=== PATIENT | male | born 1955 | race Caucasian/White ===

== ENCOUNTER 2016-08-02 09:53 | Day surgery (SDC) | payer MEDICARE, BC ==
[2016-07-28 15:42] VITALS: BMI 26.1
[~2016-08-02 09:53] MED LIST: LACTATED RINGERS 1,000 ML IV SCH; LIDOCAINE 1% 20 ML VIAL (10MG/ML) FOR IV START INTRADERMA PRN
[2016-08-02 10:52] VITALS: RESP 16; TEMP 97.5
[2016-08-02] MEDS: PHENYLEPHRINE 10% OPHTH DROPS 5 ML BTL OP ONE ×3 (10:52→11:15)
[2016-08-02] MEDS: CYCLOPENTOLATE 1% OPHTH SOLN 2 ML BTL OP ONE ×4 (10:57→11:19)
[2016-08-02] MEDS: FLURBIPROFEN 0.03% OPHTH DROPS 2.5 ML BTL OP ONE ×3 (11:01→11:22)
[2016-08-02] MEDS ORDERED: PROPOFOL 10 MG/ML 20 ML VIAL IV ONE (11:46)
[2016-08-02] MEDS ORDERED: EPINEPHrine (PF) 0.5 ML in BALANCED SALT IRRIG SOLN COMB2 500 ML IRRIGATION ONE (12:04)
[2016-08-02] MEDS ORDERED: HYALURONATE SODIUM INTRAOCULAR 1 EACH SYRINGE (10MG/ML) INTRAOCULA ONE (12:07)
[2016-08-02] MEDS ORDERED: BALANCED SALT IRRIG SOLN COMB2 15 ML IRRIG.SOLN IRRIGATION ONE (12:07)
--- NOTE | 2016-08-02 12:10 | P.OP ---
Date of Procedure: 08/02/16 Procedure(s) Performed: PREOPERATIVE DIAGNOSIS: Cataract, left eye. POSTOPERATIVE DIAGNOSIS: Cataract, left eye. OPERATION: Phacoemulsification cataract, left eye. DESCRIPTION OF PROCEDURE: The patient was taken to the preoperative holding area. Intravenous Propofol was given so as to bring about adequate sedation. The following mixture was given for local anesthesia: 5 mL of 2% lidocaine, 5 mL of 0.75% Marcaine, and 1 mL of Wydase. Approximately 4 mL was injected in the retrobulbar space of the surgical eye. Additional 1 mL was then directed to the temporal area of the surgical eye. This was performed to allow adequate neurological block of the facial muscles. The patient was revived and then taken into the operative room. The patient was prepped and draped in the usual sterile manner for the operative eye. A lid speculum was put into position. The conjunctiva was resected back from the limbus in the 12 o'clock position. Bleeding was controlled with electrocautery. A #69 blade was then used and a half-thickness scleral incision approximately 1-mm posterior to the limbus was made on bare sclera. This was shelved in the clear cornea using a crescent knife. Next a 15-degree blade was used to make a stab incision at the 3 o' clock position at the corneolimbal interface. Keratome blade was then used and the superior wound was extended into the anterior chamber. Viscoelastic was injected into the anterior chamber and to maintain its form. Next, a cystotome was used and a continuous anterior capsulotomy was made without difficulty. Hydrodissection using a blunt cannula and BSS was performed. Phaco probe was then employed and a groove extending from 12 to 6 o'clock in the lens was created. A Crow wand was used through the stab incision so as to perform a divide and conquer technique. Next an irrigation aspiration probe was utilized and any residual cortex was removed from the eye. Again, viscoelastic was injected into the anterior chamber. An Darrel posterior chamber lens implant was placed in the cartridge and injected into the anterior chamber without difficulty. The SinGendeley hook was utilized to spin the lens into position and this was again performed without any difficulty. The irrigation and aspiration probe was again employed and any residual viscoelastic was removed from the eye. Then BSS was injected into the limbal stab incision and the anterior chamber re-inflated. The conjunctiva was reapproximated using electrocautery. One drop of 0.25% Timoptic was placed over the corneal along with TobraDex ophthalmic ointment. Two sterile patches and a Bergman eye shield were taped into position. The patient was transported to the recovery room in stable condition. Pathology: none sent Condition: stable Disposition: same day
[2016-08-02 12:34] VITALS: BP 126/75; PULSE 58
[2016-08-02] MEDS ORDERED: BUPIVACAINE (PF) 0.75% 5 ML, LIDOCAINE 4% (PF) 5 ML, HYALURONIDASE, HUMAN RECOMB 150 UNIT MISCELLANE ONE ×3 (23:00)
[2016-08-02] MEDS ORDERED: GENTAMICIN/PREDNISOL AC OPHTH OINT 3.5GM OPHTHALMIC ONE (23:00)
[2016-08-02] MEDS ORDERED: TIMOLOL 0.5% OPHTH SOLN (PF) 0.2 ML DROPERETTE OP ONE (23:00)
== END 2016-08-02 12:51 | disposition home or self-care (01) ==
LOC: OR 09:53
PROVIDERS: ATTEND Ophthalmology
DX: H26.9 Unspecified cataract (principal); F32.9 Major depressive disorder, single episode, unspecified; Z79.899 Other long term (current) drug therapy; J44.9 Chronic obstructive pulmonary disease, unspecified; J45.909 Unspecified asthma, uncomplicated; K21.9 Gastro-esophageal reflux disease without esophagitis
CPT/HCPCS: 66984; V2632; J2001; J3470; J0171; J2704

== ENCOUNTER → 2016-08-05 | Outpatient (CLI) | payer MEDICARE, BC | END | disposition home or self-care (01) | LOC: LABWHC1 11:30 | PROVIDERS: ATTEND Urology | DX: C61 Malignant neoplasm of prostate (principal) | CPT/HCPCS: 36415; 84153 ==

== ENCOUNTER 2016-09-13 10:58 | Day surgery (SDC) | payer MEDICARE, BC ==
[2016-09-09 14:25] VITALS: BMI 28.4
[2016-09-13] MEDS: FLURBIPROFEN 0.03% OPHTH DROPS 2.5 ML BTL OP ONE ×3 (11:40→12:09)
[2016-09-13 11:42] VITALS: TEMP 97.6
[2016-09-13] MEDS: CYCLOPENTOLATE 1% OPHTH SOLN 2 ML BTL OP ONE ×3 (11:43→12:03)
[2016-09-13] MEDS: PHENYLEPHRINE 10% OPHTH DROPS 5 ML BTL OP ONE ×3 (11:50→12:06)
[2016-09-13] MEDS ORDERED: PROPOFOL 10 MG/ML 20 ML VIAL IV ONE (12:30)
[2016-09-13] MEDS ORDERED: LIDOCAINE 1% INJ 10MG/ML (20 ML MDV) ONE (12:30)
[2016-09-13] MEDS ORDERED: HYALURONATE SODIUM INTRAOCULAR 1 EACH SYRINGE (10MG/ML) INTRAOCULA ONE (12:44)
[2016-09-13] MEDS ORDERED: BALANCED SALT IRRIG SOLN COMB2 15 ML IRRIG.SOLN INTRAOCULA ONE (12:44)
[2016-09-13] MEDS ORDERED: EPINEPHrine (PF) 0.5 ML in BALANCED SALT IRRIG SOLN COMB2 500 ML IRRIGATION ONE (12:45)
--- NOTE | 2016-09-13 12:52 | P.OP ---
Date of Procedure: 09/13/16 Pathology: none sent Condition: stable Disposition: same day
[2016-09-13 13:12] VITALS: BP 125/86; PULSE 75; RESP 18
[2016-09-13] MEDS ORDERED: BUPIVACAINE (PF) 0.75% 5 ML, LIDOCAINE 4% (PF) 5 ML, HYALURONIDASE, HUMAN RECOMB 150 UNIT MISCELLANE ONE ×3 (23:00)
[2016-09-13] MEDS ORDERED: GENTAMICIN/PREDNISOL AC OPHTH OINT 3.5GM OPHTHALMIC ONE (23:00)
[2016-09-13] MEDS ORDERED: TIMOLOL 0.5% OPHTH SOLN (PF) 0.2 ML DROPERETTE OP ONE (23:00)
== END 2016-09-13 13:27 | disposition home or self-care (01) ==
LOC: OR 10:58
PROVIDERS: ATTEND Ophthalmology
DX: H26.9 Unspecified cataract (principal); F32.9 Major depressive disorder, single episode, unspecified; Z79.899 Other long term (current) drug therapy; F17.200 Nicotine dependence, unspecified, uncomplicated
CPT/HCPCS: 66984; V2632; J2001 ×2; J3470; J0171; J2704

== ENCOUNTER → 2016-11-22 | Outpatient (CLI) | payer MEDICARE, BC ==
--- NOTE | 2016-11-22 09:00 | NM ---
EXAMINATION TYPE: NM hepatobiliary w EF DATE OF EXAM: 11/22/2016 COMPARISON: Nuclear medicine HIDA scan October 30, 2014. MRI abdomen December 03, 2015 HISTORY: Chronic cholecystitis per order. Abdominal pain not further specified per patient with diarr hea. TECHNIQUE: After the intravenous administration of 5.26 mCi Tc 99m Mebrofenin hepatobiliary scintigra phy is performed. Immediate images post injection. FINDINGS: There is satisfactory initial accumulation of tracer by the liver. The gallbladder is visualized wit hin 10 minutes. The small bowel activity is noted within 50 minutes. At one hour 8 ounces of oral e nsure plus is given to mimic CCK and gallbladder ejection fraction is calculated at 46 %, in the norm al range. Therefore there is no scintigraphic evidence of cystic or common bile duct obstruction to suggest acute cholecystitis or gallbladder dyskinesia. IMPRESSION: Exam is within normal limits.
== END | disposition home or self-care (01) ==
LOC: RADNMMAIN 06:47
PROVIDERS: ATTEND Surgery
DX: K81.1 Chronic cholecystitis (principal)
CPT/HCPCS: 78226; A9537

== ENCOUNTER 2016-11-23 09:12 | Day surgery (SDC) | payer MEDICARE, BC ==
[2016-11-22 10:31] VITALS: BMI 27.3
[~2016-11-23 09:12] MED LIST changes: -LIDOCAINE 1% 20 ML VIAL (10MG/ML) FOR IV START INTRADERMA PRN
[2016-11-23 09:39] VITALS: TEMP 96.9
[2016-11-23] MEDS ORDERED: LIDOCAINE 1% 20 ML VIAL (10MG/ML) FOR IV START INTRADERMA ONE (09:48)
[2016-11-23] MEDS ORDERED: LIDOCAINE 1% INJ 10MG/ML (20 ML MDV) ONE (09:56)
[2016-11-23] MEDS ORDERED: PROPOFOL 10 MG/ML 20 ML VIAL IV ONE (09:56)
--- NOTE | 2016-11-23 10:01 | P.GSHP ---
History of Present Illness H&P Date: 11/23/16 Chief Complaint: Epigastric pain, gastritis This is a 61-year-old male referred from Dr. Ramesh Giang. Patient presents today for EGD. His had issues of epigastric pain and gastritis. Past Medical History Past Medical History: Cancer, COPD, Eye Disorder, GERD/Reflux, Osteoarthritis ( OA), Prostate Disorder Additional Past Medical History / Comment(s): Prostate cancer,girlfriend states "not aware of PE" History of Any Multi-Drug Resistant Organisms: None Reported Past Surgical History: Back Surgery, Hernia Repair, Orthopedic Surgery Additional Past Surgical History / Comment(s): NECK SURGERY. 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 LT ROTATOR CUFF REPAIR, COLONOSCOPY. Past Anesthesia/Blood Transfusion Reactions: No Reported Reaction Past Psychological History: Anxiety, Depression Smoking Status: Current every day smoker - Past Family History Brother(s) Family Medical History: Pulmonary Embolus Mother Family Medical History: Diabetes Mellitus, Vascular Disorder Medications and Allergies Home Medications Medication Instructions Recorded Confirmed Type Escitalopram Oxalate [Lexapro] 10 mg PO HS 12/14/15 11/23/16 History LORazepam [Lorazepam] 1 mg PO DAILY PRN 07/28/16 11/23/16 History HYDROcodone/APAP 10-325MG [[place] 1 tab PO Q6H PRN 11/23/16 11/23/16 History 10-325] Allergies Allergy/AdvReac Type Severity Reaction Status Date / Time No Known Allergies Allergy Verified 11/22/16 10:25 Surgical - Exam Vital Signs Temp Pulse Resp BP Pulse Ox 96.9 F L 74 18 108/62 95 11/23/16 09:38 11/23/16 09:38 11/23/16 09:38 11/23/16 09:38 11/23/16 09:38 - General well developed, no distress - Eyes PERRL - ENT normal pinna - Neck no masses - Respiratory normal expansion - Cardiovascular Rhythm: regular - Abdomen Abdomen: soft, non tender Assessment and Plan Plan: Epigastric pain, gastritis. We'll perform EGD.
--- NOTE | 2016-11-23 10:07 | P.OP ---
Date of Procedure: 11/23/16 Preoperative Diagnosis: Gastritis Postoperative Diagnosis: Mild duodenitis Healing antral ulcer No evidence of hiatal hernia No evidence of esophagitis Procedure(s) Performed: EGD Implants: Anesthesia: MAC Surgeon: Santosh Galaviz Pathology: other (Antrum, duodenum) Condition: stable Disposition: PACU Indications for Procedure: Operative Findings: Description of Procedure: The patient's placed on the endoscopy table lateral position. He received IV sedation. The gastroscope placed oropharynx and passed into the esophagus and stomach. Scope was then placed through the pylorus. First and second portion of the duodenum appeared inflamed. A biopsies performed. The scope was then brought back into the stomach. And in the antrum and appeared to be a small healing ulcer. This area is biopsied. There is no active bleeding. The scope was unretroflexed and remainder stomach appeared normal. The GE junction was at 40 cm. There is no evidence of a hiatal hernia. There is no evidence of esophagitis. The proximal esophagus appeared normal. Scope was withdrawn for patient.
[2016-11-23 10:11] VITALS: RESP 16
[2016-11-23 10:31] VITALS: BP 112/82; PULSE 81
== END 2016-11-23 11:30 | disposition home or self-care (01) ==
LOC: ORWHC2ENDO 09:12
PROVIDERS: ATTEND Surgery
DX: K29.50 Unspecified chronic gastritis without bleeding (principal); K29.80 Duodenitis without bleeding; K21.9 Gastro-esophageal reflux disease without esophagitis; Z85.46 Personal history of malignant neoplasm of prostate; F32.9 Major depressive disorder, single episode, unspecified; F41.9 Anxiety disorder, unspecified; F17.200 Nicotine dependence, unspecified, uncomplicated; Z79.899 Other long term (current) drug therapy
CPT/HCPCS: 88305; 88342; 43239; J2001; J2704

== ENCOUNTER 2017-03-31 09:54 | Day surgery (SDC) | payer MEDICARE, BC ==
[2017-03-24 15:47] VITALS: BMI 27.6
[~2017-03-31 09:54] MED LIST changes: +LACTATED RINGERS 1,000 ML IV ONE; -LACTATED RINGERS 1,000 ML IV SCH; +LIDOCAINE 1% 20 ML VIAL (10MG/ML) FOR IV START INTRADERMA PRN
[2017-03-31 10:48] LABS: Glucose,Whole Blood 88 mg/dL (75-99)
[2017-03-31] MEDS ORDERED: LIDOCAINE 1% INJ 10MG/ML (20 ML MDV) ONE (11:44)
[2017-03-31] MEDS ORDERED: PROPOFOL 10 MG/ML 20 ML VIAL IV ONE (11:44)
--- NOTE | 2017-03-31 11:54 | P.GSHP ---
History of Present Illness H&P Date: 03/31/17 Chief Complaint: Peptic ulcer disease This is a 62-year-old male referred from Dr. Ramesh Giang. Patient presents today for EGD. He has a history of peptic ulcer disease. Past Medical History Past Medical History: Cancer, COPD, Eye Disorder, GERD/Reflux, Osteoarthritis ( OA), Prostate Disorder Additional Past Medical History / Comment(s): Prostate cancer,girlfriend states "not aware of PE" History of Any Multi-Drug Resistant Organisms: None Reported Past Surgical History: Back Surgery, Hernia Repair, Orthopedic Surgery Additional Past Surgical History / Comment(s): NECK SURGERY. 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 LT ROTATOR CUFF REPAIR, COLONOSCOPY., EGD, RT CATARACT REMOVED Past Anesthesia/Blood Transfusion Reactions: No Reported Reaction Smoking Status: Current every day smoker - Past Family History Brother(s) Family Medical History: Pulmonary Embolus Mother Family Medical History: Diabetes Mellitus, Vascular Disorder Medications and Allergies Home Medications Medication Instructions Recorded Confirmed Type Escitalopram Oxalate [Lexapro] 10 mg PO HS 12/14/15 03/31/17 History LORazepam [Lorazepam] 1 mg PO DAILY PRN 07/28/16 03/24/17 History HYDROcodone/APAP 10-325MG [[place] 1 tab PO Q6H PRN 11/23/16 03/31/17 History 10-325] Allergies Allergy/AdvReac Type Severity Reaction Status Date / Time No Known Allergies Allergy Verified 03/24/17 15:44 Surgical - Exam Vital Signs Temp Pulse Resp BP Pulse Ox 97.8 F 61 16 133/78 61 L 03/31/17 10:37 03/31/17 10:37 03/31/17 10:37 03/31/17 10:37 03/31/17 10:37 - General well developed, no distress - Eyes PERRL - ENT normal pinna - Neck no masses - Respiratory normal expansion - Cardiovascular Rhythm: regular - Abdomen Mild epigastric discomfort Abdomen: soft Assessment and Plan Assessment: Epigastric pain, history of peptic ulcer disease. We'll perform EGD.
--- NOTE | 2017-03-31 12:01 | P.OP ---
Date of Procedure: 03/31/17 Preoperative Diagnosis: Peptic ulcer disease Postoperative Diagnosis: Antral ulcer Procedure(s) Performed: EGD Anesthesia: MAC Surgeon: Santosh Galaviz Pathology: other (Antral ulcer) Condition: stable Disposition: PACU Description of Procedure: Patient's placed on the endoscopy table in the lateral position. He received IV sedation. The gastroscope placed oropharynx passed in the esophagus and into the stomach. Scope was then placed through the pylorus. The first and second portion of the duodenum appeared normal. Scope was then brought back the antrum. Inflamed. There is evidence of a small antral ulcer. This was biopsied. The scope was unretroflexed meters some appeared normal. The patient a previous plication wrap. A 20 mm balloon was placed across the area of the GE junction. There was no evidence of any stricture. Scope was then brought back the distal esophagus and proximal esophagus appeared normal. Scope was then withdrawn from patient.
[2017-03-31 12:21] VITALS: BP 118/76; PULSE 56; RESP 16
[2017-03-31 12:54] VITALS: TEMP 97.8
== END 2017-03-31 13:10 | disposition home or self-care (01) ==
LOC: ORWHC2ENDO 09:54
PROVIDERS: ATTEND Surgery
DX: K29.50 Unspecified chronic gastritis without bleeding (principal); Z87.11 Personal history of peptic ulcer disease; K21.9 Gastro-esophageal reflux disease without esophagitis; Z85.46 Personal history of malignant neoplasm of prostate; F17.200 Nicotine dependence, unspecified, uncomplicated; J44.9 Chronic obstructive pulmonary disease, unspecified; M19.90 Unspecified osteoarthritis, unspecified site; Z79.899 Other long term (current) drug therapy
CPT/HCPCS: 88305; 88342; 43239; J2001; J2704; C1726; 43244

== ENCOUNTER → 2017-05-11 | Outpatient (CLI) | payer MEDICARE, BC | END | disposition home or self-care (01) | LOC: LABWHC1 13:14 | PROVIDERS: ATTEND Urology | DX: C61 Malignant neoplasm of prostate (principal) | CPT/HCPCS: 36415; 84153 ==

== ENCOUNTER 2017-05-23 09:30 | Emergency (ER) | payer MEDICARE, BC ==
[2017-05-23] MEDS ORDERED: ONDANSETRON ODT 4 MG TAB PO STA (10:16)
[2017-05-23] MEDS ORDERED: HYDROmorphone 1 MG/ML 1 ML SYRINGE IM STA (10:16)
--- NOTE | 2017-05-23 10:19 | ED ---
General Adult HPI - General Chief complaint: Back Pain/Injury Stated complaint: Fell/back pain Time Seen by Provider: 05/23/17 10:00 Source: patient, RN notes reviewed Mode of arrival: ambulatory Limitations: no limitations - History of Present Illness Initial comments: This is a 62-year-old male who presents emergency Department complaining of his ribs hurting after he fell yesterday. Patient states he slipped on some ice and fell back up against a step on the lateral aspect of his left ribs. Patient states it hurts take a deep breath or cough. Patient denies any shortness of breath. Patient denies any chest pain. Patient denies any lower back pain. Patient denies any extremity pain. Patient denies any neck or head injury. Patient denies any sites of bleeding. - Related Data Home Medications Medication Instructions Recorded Confirmed Escitalopram Oxalate [Lexapro] 10 mg PO HS 12/14/15 05/23/17 Previous Rx's Medication Instructions Recorded Hydrocodone/Acetaminophen [[place] 1 each PO Q4HR PRN #20 tab 05/23/17 5-325] Allergies Allergy/AdvReac Type Severity Reaction Status Date / Time No Known Allergies Allergy Verified 05/23/17 10:07 Review of Systems ROS Statement: Those systems with pertinent positive or pertinent negative responses have been documented in the HPI. ROS Other: All systems not noted in ROS Statement are negative. Past Medical History Past Medical History: Cancer, COPD, Eye Disorder, GERD/Reflux, Osteoarthritis ( OA), Prostate Disorder Additional Past Medical History / Comment(s): Prostate cancer,girlfriend states "not aware of PE" History of Any Multi-Drug Resistant Organisms: None Reported Past Surgical History: Back Surgery, Hernia Repair, Orthopedic Surgery Additional Past Surgical History / Comment(s): NECK SURGERY. 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 LT ROTATOR CUFF REPAIR, COLONOSCOPY., EGD, RT CATARACT REMOVED Past Anesthesia/Blood Transfusion Reactions: No Reported Reaction Past Psychological History: Anxiety, Depression Smoking Status: Current every day smoker Past Alcohol Use History: None Reported Past Drug Use History: None Reported - Past Family History Brother(s) Family Medical History: Pulmonary Embolus Mother Family Medical History: Diabetes Mellitus, Vascular Disorder General Exam - General Exam Comments Initial Comments: GENERAL: Patient is well-developed and well-nourished. Patient is nontoxic and well- hydrated and is in mild distress. ENT: Neck is soft and supple. No significant lymphadenopathy is noted. Oropharynx is clear. Moist mucous membranes. Neck has full range of motion without eliciting any pain. EYES: The sclera were anicteric and conjunctiva were pink and moist. Extraocular movements were intact and pupils were equal round and reactive to light. Eyelids were unremarkable. PULMONARY: Unlabored respirations. Good breath sounds bilaterally. No audible rales rhonchi or wheezing was noted. CARDIOVASCULAR: There is a regular rate and rhythm without any murmurs gallops or rubs. Lateral aspect of the left ribs are tender to palpation. ABDOMEN: Soft and nontender with normal bowel sounds. SKIN: Skin is clear with no lesions or rashes and otherwise unremarkable. NEUROLOGIC: Patient is alert and oriented x3. Cranial nerves II through XII are grossly intact. Motor and sensory are also intact. Normal speech, volume and content. Symmetrical smile. MUSCULOSKELETAL: Normal extremities with adequate strength and full range of motion. . PSYCHIATRIC: Normal psychiatric evaluation. Normal interpersonal interactions appears functionally intact in deals appropriately with others. No signs of depression. No signs of anxiety. Limitations: no limitations Course Vital Signs 05/23/17 09:40 Temperature 98.6 F Pulse Rate 62 Respiratory 16 Rate Blood Pressure 116/79 O2 Sat by Pulse 99 Oximetry Medical Decision Making - Medical Decision Making X-ray shows a A. fib with a fracture. Disposition Clinical Impression: Rib fracture Disposition: HOME SELF-CARE Condition: Good Instructions: Rib Fracture (ED) Prescriptions: Hydrocodone/Acetaminophen [[place] 5-325] 1 each PO Q4HR PRN #20 tab PRN Reason: Pain Referrals: Ramesh Kaiser MD [Primary Care Provider] - 1-2 days Time of Disposition: 11:05
--- NOTE | 2017-05-23 10:42 | XR ---
EXAMINATION TYPE: XR ribs LT w pa chest xray DATE OF EXAM: 05/23/2017 COMPARISON: NONE HISTORY: Left posterior rib pain TECHNIQUE: One view of the chest and 4 views of the left ribs FINDINGS: Subsegmental linear atelectasis at both lung bases. Previous cardiac surgery noted. Surgica l change overlying the cervical spine. Chronic rib deformities noted on the right. Pleural-based thic kening noted bilaterally. No sizable pneumothorax. No acute displaced rib fracture. IMPRESSION: No acute displaced rib fracture
[2017-05-23 11:28] VITALS: BP 122/80; PULSE 67; RESP 18; TEMP 97.1
== END 2017-05-23 11:28 | disposition home or self-care (01) ==
LOC: EC 09:30
DX: S22.39XA Fracture of one rib, unspecified side, initial encounter for closed fracture (principal); F41.9 Anxiety disorder, unspecified; F32.9 Major depressive disorder, single episode, unspecified; F17.200 Nicotine dependence, unspecified, uncomplicated; Z85.46 Personal history of malignant neoplasm of prostate; Z98.890 Other specified postprocedural states; Z79.899 Other long term (current) drug therapy; W00.0XXA Fall on same level due to ice and snow, initial encounter; Y92.69 Other specified industrial and construction area as the place of occurrence of the external cause; Y99.0 Civilian activity done for income or pay
CPT/HCPCS: 71101; 99283; 96372; J1170

== ENCOUNTER → 2017-05-23 | Outpatient (CLI) | payer MEDICARE, BC ==
--- NOTE | 2017-05-23 12:23 | CTL ---
EXAMINATION TYPE: CT Low Dose Lung DATE OF EXAM ORDERED: 05/23/2017 HISTORY: Tobacco use history. Lung cancer screening CT DLP: [address] CTDI: 2.07 mGy Automated exposure control for dose reduction was used. SCREENING VISIT: Initial COMPARISON: CTA 03/08/2013 TECHNIQUE: Low dose computed tomography scan was performed through the chest at 1 mm thick sections a nd reconstructed images in the coronal plane at [address] DIAGNOSTIC QUALITY: Limited, but interpretable FINDINGS: LUNG NODULES: None. There is a 0.6 cm nodule within the superior segment right lower lobe abutting the major fissure on t he left. Series 3 image 35. Some adjacent groundglass opacity is present. There is some streak opacities within the bilateral anterior lung bases. This could be related to Ate lectasis or scarring. LUNGS: COPD: Severity: None Fibrosis: Severity: None Lymph nodes: None Other findings: None RIGHT PLEURAL SPACE: Effusion: None Calcification: None Thickening: None Pneumothorax: None LEFT PLEURAL SPACE: Effusion: None Calcification: None Thickening: None Pneumothorax: None HEART: Heart Size: Normal Coronary calcification: Mild Pericardial effusion: None OTHER FINDINGS: Upper abdomen: Normal Bony thorax: Normal Supraclavicular region: Normal Other: Ascending thoracic aorta at the level of main pulmonary artery is 3.5 cm. The main pulmonary a rtery at the bifurcation is 3.3 cm. IMPRESSION: 1. Small nodule superior segment right lower lobe adjacent to the major fissure. This was present Feb appears stable. There is some new stranding opacities adjacent. FOLLOW UP CT CHEST RECOMMENDATION: Yes CT LUNG RAD: Lung-Rad 3 Probably Benign Follow up CT chest in 6 months with contrast is recommended.
== END | disposition home or self-care (01) ==
LOC: RADCTMAIN 09:13
PROVIDERS: ATTEND Family Medicine
DX: R91.1 Solitary pulmonary nodule (principal); Z87.891 Personal history of nicotine dependence

== ENCOUNTER → 2017-07-07 | Outpatient (CLI) | payer MEDICARE, BC ==
[2017-07-07 10:26] LABS: Basophils # (A) 0.1 k/uL (0-0.2); Basophils % (A) 1 %; Eosinophils # (A) 0.1 k/uL (0-0.7); Eosinophils % (A) 2 %; HCT 43.6 % (39.0-53.0); Lymphocytes # (A) 2.5 k/uL (1.0-4.8); Lymphocytes % (A) 33 %; MCHC 32.1 g/dL (31.0-37.0); MCV 99.9 fL (80.0-100.0); Monocytes # (A) 0.5 k/uL (0-1.0); Monocytes % (A) 7 %; Neutrophils # (A) 4.2 k/uL (1.3-7.7); Neutrophils % (A) 55 %; Platelet Count 215 k/uL (150-450); RBC 4.36 m/uL (4.30-5.90); RDW 13.7 % (11.5-15.5); WBC 7.6 k/uL (3.8-10.6)
[2017-07-07 10:30] LABS: Appearance,Urine Clear (Clear); Bilirubin,Urine Negative (Negative); Blood,Urine Negative (Negative); Color,Urine Yellow; Glucose,Urine (UA) Negative (Negative); Ketones,Urine Negative (Negative); Leukocyte Esterase,Urine Negative (Negative); PH, Urine 5.5 (5.0-8.0); Protein,Urine Negative (Negative); Specific Gravity,Urine 1.013 (1.001-1.035); Urobilinogen,Urine <2.0 mg/dL (<2.0)
--- NOTE | 2017-07-07 10:31 | XR ---
EXAMINATION TYPE: XR chest 2V DATE OF EXAM: 07/07/2017 COMPARISON: 05/23/2017 HISTORY: Presurgical testing. TECHNIQUE: Frontal and lateral views of the chest are obtained. FINDINGS: The lungs are hyperinflated with flattening of the diaphragms related to underlying COPD. E nlargement of the hilar vasculature may indicate pulmonary artery hypertension. Cardiac valvular repl acement is noted. Heart is upper limits of normal. There is no focal air space opacity, pleural effu fred, or pneumothorax seen. The cardiac silhouette size is within normal limits. Left basilar plat elike subsegmental atelectasis versus pleural parenchymal scarring is seen. The osseous structures ar e intact. Mild multilevel degenerative changes of thoracic spine are present. IMPRESSION: 1. No acute cardiopulmonary process. 2. Multifocal subsegmental left basilar atelectasis versus pleural parenchymal scarring. 3. Radiographic sequela of COPD. 4. Enlargement of the hilar vasculature which may represent underlying pulmonary arterial hypertensio n.
[2017-07-07 10:35] LABS: Prothrombin Time 9.9 sec (9.0-12.0)
[2017-07-07 10:43] LABS: Anion Gap 8 mmol/L; Blood Urea Nitrogen 24 mg/dL (9-20); Calcium 9.4 mg/dL (8.4-10.2); Carbon Dioxide 26 mmol/L (22-30); Chloride 107 mmol/L (98-107); Glucose 92 mg/dL (74-99); Potassium 5.5 mmol/L (3.5-5.1); Sodium 141 mmol/L (137-145)
== END | disposition home or self-care (01) ==
LOC: LABPAT 09:29
PROVIDERS: ATTEND Orthopaedic Surgery Orthopaedic Surgery of the Spine
DX: Z01.818 Encounter for other preprocedural examination (principal); Z01.812 Encounter for preprocedural laboratory examination; Z79.01 Long term (current) use of anticoagulants
CPT/HCPCS: 36415; 71046; 80048; 81003; 85025; 85610; 85730; 87070

== ENCOUNTER → 2017-07-12 | Outpatient (CLI) | payer MEDICARE, BC | END | disposition home or self-care (01) | LOC: LABWHC1 13:15 | PROVIDERS: ATTEND Orthopaedic Surgery Orthopaedic Surgery of the Spine | DX: Z01.812 Encounter for preprocedural laboratory examination (principal); M48.061 Spinal stenosis, lumbar region without neurogenic claudication | CPT/HCPCS: 86850; 86900; 86901 ==

== ENCOUNTER 2017-07-19 09:57 | Inpatient (IN) | payer MEDICARE, BC ==
[2017-07-12 15:08] VITALS: BMI 27.8
[~2017-07-19 09:57] MED LIST changes: +BACITRACIN 50,000 UNIT, POLYMYXIN B 500,000 UNIT in SODIUM CHLORIDE 0.9% IRRIGATIO 1,00... IRRIGATION ONE; +DEXAMETHASONE SOD PHOSPHATE 10 MG/ML 1 ML VIAL IV ONE; +HYDROmorphone 0.5 MG/0.5 ML SYRINGE IVP PRN; -LACTATED RINGERS 1,000 ML IV ONE; -LIDOCAINE 1% 20 ML VIAL (10MG/ML) FOR IV START INTRADERMA PRN; +ONDANSETRON 4 MG/2 ML VIAL IVP ONE; +ceFAZolin IN SWFI 2 GM/20 ML SYRINGE IVP ONE
[2017-07-19] MEDS: LACTATED RINGERS 1,000 ML IV SCH (11:35)
[2017-07-19] MEDS ORDERED: LIDOCAINE 1% 20 ML VIAL (10MG/ML) FOR IV START INTRADERMA ONE (11:35)
[2017-07-19] MEDS ORDERED: ePHEDrine SULFATE/0.9% NACL/PF 50 MG/5 ML SYRINGE IV ONE (13:38)
[2017-07-19] MEDS ORDERED: HYDROmorphone (PF) 1 MG/ML ONE (13:38)
[2017-07-19] MEDS ORDERED: ROCURONIUM BROMIDE 10 MG/ML 10 ML VIAL IV ONE (13:38)
[2017-07-19] MEDS ORDERED: LIDOCAINE 1% INJ 10MG/ML (20 ML MDV) ONE (13:38)
[2017-07-19] MEDS ORDERED: PROPOFOL 10 MG/ML 20 ML VIAL IV ONE (13:38)
[2017-07-19] MEDS ORDERED: fentaNYL (PF) 50 MCG/ML 2 ML AMP ONE (13:38)
[2017-07-19] MEDS ORDERED: SUCCINYLCHOLINE CHLORIDE 100 MG/5 ML SYR IV ONE (13:38)
[2017-07-19] MEDS ORDERED: ALBUTEROL INHALER 60 PUFF/8 GM INHALER INHALATION ONE (13:38)
[2017-07-19] MEDS ORDERED: KETAMINE 10 MG/ML 20 ML VIAL ONE (13:38)
[2017-07-19] MEDS ORDERED: MIDAZOLAM 2 MG/2 ML VIAL ONE (13:38)
[2017-07-19] MEDS ORDERED: LACTATED RINGERS 1,000 ML IV ONE ×2 (17:25)
[2017-07-19] MEDS ORDERED: ONDANSETRON 4 MG/2 ML VIAL IVP PRN (17:49)
[2017-07-19] MEDS ORDERED: DIAZEPAM 5 MG TAB PO PRN (17:49)
[2017-07-19] MEDS ORDERED: HYDROcodone/APAP 5-325MG 1 EACH TAB PO PRN (17:49)
[2017-07-19] MEDS ORDERED: BENZOCAINE/MENTHOL LOZENG 1 EACH LOZENGE MUCOUS MEM PRN (17:49)
[2017-07-19] MEDS ORDERED: MAGNESIUM HYDROXIDE 2,400 MG/10 ML CUP PO PRN (17:49)
[2017-07-19] MEDS ORDERED: MORPHINE SULFATE 4 MG/ML SYRINGE IVP PRN ×2 (17:49)
[2017-07-19] MEDS ORDERED: SYMBICORT 160-4.5 MCG INHALER INHALATION PRN (17:53)
[2017-07-19] MEDS ORDERED: HYDROcodone/APAP 10-325MG 1 EACH TAB PO SCH (18:00)
[2017-07-19] MEDS ORDERED: SODIUM CHLORIDE 0.9% 1,000 ML IV SCH (18:00)
--- NOTE | 2017-07-19 18:01 | P.OP ---
Date of Procedure: 07/19/17 Preoperative Diagnosis: Spinal stenosis L3 4 L4 5, degenerative disc disease L3 4 L4 5, low back pain and lower extremity radiculopathy Postoperative Diagnosis: Same Anesthesia: GETA Pathology: none sent Condition: stable Disposition: PACU Description of Procedure: DESCRIPTION OF PROCEDURE(S): BRIEF OPERATIVE NOTE Preoperative Diagnosis: Spinal stenosis L3 4 L4 5, degenerative disc disease L3 4 L4 5, herniated disc L3 4 L4 5, low back and lower extremity radiculopathy Postoperative Diagnosis: Same Procedure: Laminectomy and decompression L3 4 L4 5 Minimally invasive Posterior lateral decompression and facet fusion L3 4 L4 5 Minimally invasive Transforaminal lumbar interbody fusion for a 360 fusion L3 4 L4 5 Discectomy for decompression L3 4 L4 5 Placement of interbody graft L3 4 L4 5 Local autogenous bone grafting Harvesting of bone marrow aspirate via the pedicle and vertebral body of L3 Use of Cell Saver Use of bone graft extenders Surgeon: Dr. Nur Machine Maintenance Repairer: Viral Ansari is present throughout the entire the case persistence during positioning, dissection, exposure, visualization, and all crucial elements of the case as well as closure. Anesthesia: General anesthesia per Dr. Bass Estimated blood loss: approximately 300 mL with 150 given back through Cell Saver Complications: None apparent Components implanted: K2M Poteet minimally invasive pedicle screw system with 6 screws measuring 6.5 x 50 mm, 2 rods and cascade interbody cages with a osteo amp Sponge and 30 mL of DBX bone fibers to supplemental local autogenous bone graft and bone marrow aspirate Disposition: To recovery room in good stable condition. OPERATIVE INDICATIONS The patient has had long-standing issues in their lower back and lower extremities. has been having worsening debility and pain despite conservative care. He was found have severe stenosis L3 4 L4 5 with disc herniation and central bilateral foraminal stenosis with degenerative disc disease all of which correlated well with his low back and lower extremity symptoms. The patient has been through conservative treatment. We discussed various treatment options including surgery, and the patient wishes to proceed with surgery . We discussed the risk of smoking in terms of his recovery and his overall results with his lumbar fusion and I urged him to stop smoking quite independently and he understands. We discussed the risk, patient's alternatives and benefits of surgery including but not limited to, risk of bleeding risk of infection, risk of need for further surgery, risk of decreased, loss of motion, muscle function, malunion nonunion, hardware failure, nerve damage, paralysis, heart attack, blindness and . OPERATIVE SUMMARY After discussing all the risks, patient alternatives and benefits at length, the patient elected to proceed with surgical intervention, signed informed consent, and presented for their procedure. The patient was seen and examined in the preoperative holding area and the surgical site was marked. The patient was given antibiotics and brought to the operating room. The patient was sedated and intubated by anesthesia in standard fashion. The patient was positioned on to the operating room table in a prone position on the appropriate frame which was well-padded and well molded. We were careful to pad any bony prominences and pressure points. We were careful to maintain the patient's cervical spine and good neutral alignment and position throughout. The patient was prepped and draped in a normal standard fashion. An appropriate timeout and keystone protocol performed. We were able to proceed with the surgery. The local wound area was infiltrated with local anesthetic. I was able utilize C-arm guidance to establish appropriate position over the pedicles bilaterally at the appropriate levels At L3 4 and 5. With the appropriate levels confirmed was able to make small stab incisions over the appropriate pedicle sites bilaterally. Utilizing C-arm in his house able to establish a Jamshidi needle over the lateral aspect of the pedicle and advanced the trocar into the pedicle being careful not to breech superiorly inferiorly medially or laterally. Position was confirmed regularly with AP and lateral images on C-arm. I was able to establish the trocar into the pedicle appropriately into the posterior aspect of the vertebral body bilaterally at the appropriate levels At L3 4 and 5. This was done at each of the pedicle positions and each of the vertebrae. at L3 on the right I was able to draw up approximately 20 mL of bone marrow aspirate with the trocar into the used for supplement the bone graft. I was able place the guidewire into the trocar and into the vertebral body appropriately under C-arm guidance. Dissection was taken down over the wire to the appropriate starting position for the screw placed. The appropriate length screw was chosen, threaded over the guidewire and screwed appropriately into the pedicle and vertebral body under C-arm guidance in excellent alignment and position with good bony purchase. This is done at each of the screw sites at the appropriate levels. With the screws intact I extended the incision to connect the screw hole sites on the most symptomatic side On the right. I dissected down to establish access over the pars and lamina to the base of the spinous process. I was able to expose the facet joint. The capsule the facet was taken down and showed some facet arthrosis at the joint. I was able to use a combination of curettes and Kerrison rongeurs and a high-speed drill to take down the facet joint and do a facetectomy. this was done first at L4 5 and then at L3 4. Partial laminectomy was also performed. I was able get excellent foraminal decompression and central decompression with undermining across midline to perform a laminectomy centrally and contralaterally. As able get good central decompression. The ligamentum flavum was taken down to further decompress centrally and at bilateral neural foramen. I was able to expose the disc space and visualize the traversing nerve root. Note was made of some disc protrusion at the level causing further compression of the nerve root. I was able to establish a annulotomy at the appropriate level protecting soft tissue and neural structures. Note was made of some disc desiccation at the disc. I performed a complete discectomy with accommodation of curettes and rasps and scrapers. I was able get good endplate preparation at the disc space. I sized for the appropriate size interbody spacer protecting the soft tissue and neural structures. The wound was copiously irrigated and suctioned dry. There is no evidence of any dural tear or leak. I was able to pack the disc space with local autogenous bone graft as well as a small amount of bone graft which was also placed into the interbody cage itself. Protecting the soft tissue structures and neural structures I was able place the interbody cage in good alignment and good position with good fit and fill at the interbody space. His issues was confirmed with C-arm guidance. Good hemostasis maintained. There is no evidence of any dural tear or leak. The wound was irrigated and suctioned dry.This was done similarly first at L4 5 and then at L3 4. With the hardware intact, intraoperative C-arm imaging was again taken which showed good alignment and position of the hardware at the appropriate levels At L3 4 and L4 5. We were then able to measure, contour and place the rods and appropriate hardware bilaterally. I was able to place capcrews, tighten them down, and torque them with the torque screwdriver appropriately. With this intact I was able to place the local autogenous bone graft with additional bone graft enhancer as necessary into the posterior lateral gutters over the decorticated transverse processes. The remainder of the bone graft was placed over the facet joint on the contralateral side after taking down the facet joint capsule. With the bone graft intact, a stable construct, and good decompression at the appropriate levels, we were able to proceed with closure. Good hemostasis was maintained. There is no evidence of dural tear or leak. The fascia was closed for a watertight closure. he subcuticular tissue was closed with absorbable suture. The wound was cleaned and dried and dressed with the appropriate dressing. The drapes were broken down. The patient was gently rolled back onto their hospital bed being careful to maintain their cervical spine and good neutral alignment and position. They were woken up by anesthesia, extubated, and brought to the recovery room in good stable condition. The patient will be admitted to the hospital for appropriate postoperative care , medical management and monitoring. We will continue to follow them closely about the postoperative course.
[2017-07-19] MEDS ORDERED: HYDROmorphone 0.5 MG/0.5 ML SYRINGE IVP ONE ×3 (18:10→18:15)
--- NOTE | 2017-07-19 18:16 | FL ---
EXAMINATION TYPE: FL guidance operating room, XR lumbar spine 2 or 3V DATE OF EXAM: 07/19/2017 CLINICAL HISTORY: Spinal stenosis TECHNIQUE: Fluoroscopy. Intraoperative limited views lumbar spine. COMPARISON: None. FINDINGS: Fluoroscopic guidance was provided during low back surgical procedure performed by Dr. Chan jovel. A total of 2 minutes 31 seconds of fluoroscopic time was utilized during the procedure and 6 spo t intraoperative images are acquired. Intraoperative images acquired show placement of wires bilateral L3-L5 level with subsequent placemen t of interpedicular screws and then metallic disc spacers. IMPRESSION: As Above.
[2017-07-19] MEDS: HYDROcodone/APAP 5-325MG 1 EACH TAB PO PRN (21:00)
[2017-07-20] MEDS ORDERED: ceFAZolin IN SWFI 2 GM/20 ML SYRINGE IVP SCH (01:00)
[2017-07-20] MEDS: HYDROcodone/APAP 5-325MG 1 EACH TAB PO PRN ×2 (01:29→08:06)
[2017-07-20] MEDS: LACTATED RINGERS 1,000 ML IV SCH (05:33)
[2017-07-20 07:28] LABS: Basophils % (A) 0 %; Eosinophils % (A) 0 %; HCT 41.2 % (39.0-53.0); HGB 13.1 gm/dL (13.0-17.5); Lymphocytes # (A) 1.8 k/uL (1.0-4.8); Lymphocytes % (A) 15 %; MCHC 31.7 g/dL (31.0-37.0); MCV 97.7 fL (80.0-100.0); Mean Platelet Volume 7.7; Monocytes # (A) 0.9 k/uL (0-1.0); Monocytes % (A) 8 %; Neutrophils # (A) 8.8 k/uL (1.3-7.7); Neutrophils % (A) 76 %; Platelet Count 186 k/uL (150-450); RBC 4.21 m/uL (4.30-5.90); RDW 13.4 % (11.5-15.5); WBC 11.6 k/uL (3.8-10.6)
[2017-07-20 07:39] LABS: Anion Gap 7 mmol/L; Blood Urea Nitrogen 19 mg/dL (9-20); Calcium 8.9 mg/dL (8.4-10.2); Carbon Dioxide 27 mmol/L (22-30); Chloride 107 mmol/L (98-107); Glucose 115 mg/dL (74-99); Potassium 4.6 mmol/L (3.5-5.1); Sodium 141 mmol/L (137-145)
[2017-07-20 07:52] VITALS: BP 118/72; PULSE 85; RESP 19; TEMP 97.6
[2017-07-20] MEDS ORDERED: SENNOSIDES-DOCUSATE SODIUM 1 EACH TAB PO SCH (09:00)
[2017-07-20] MEDS ORDERED: VARENICLINE 0.5 MG TAB PO SCH (09:00)
[2017-07-20] MEDS ORDERED: buPROPion XL 300 MG TAB.ER.24H PO SCH (09:00)
[2017-07-20] MEDS ORDERED: ESCITALOPRAM 10 MG TAB PO SCH (09:00)
--- NOTE | 2017-07-20 09:06 | P.DS ---
Providers Date of admission: 07/19/17 09:57 Attending physician: Howard Nur Consults: 07/19/17 17:49 Consult Physician Routine Consulting Provider: Ramesh Kaiser Reason/Comments: Medical management Do you want consulting provider notified?: Yes Primary care physician: Ramesh Mclean [facility] Course: The patient presented on the day of admission as per his operative note. He underwent posterior lumbar decompression and fusion with a minimally invasive approach at L3 4 and L4 5 for his severe spinal stenosis with disc degeneration low back pain and lower extremity radiculopathy. He feels he is making good progress. He feels his legs are doing well. He has been up and around his room and is tolerating his pain adequately with oral medications. He is tolerating his regular diet. Physical Exam The incision site is clean dry and intact. There is no erythema no drainage. There is no purulence no evidence of infection. There was some bloody drainage on the dressing from overnight but I change the dressings morning and there is no active drainage. There is no significant swelling. There is no erythema. Abdomen soft and nontender. Chest has good excursion with deep inspiration and expiration. The patient has active and passive range of motion intact at the upper and lower extremities. There is no acute change in neurologic status. He has good sustained dorsal flexion plantar flexion and EHL his bilateral lower extremities. He is voiding freely. Hospital Course Postoperative day #1 status post minimally invasive decompression and fusion L3 4 L4 5 for his severe spinal stenosis with degenerative disc disease facet arthrosis low back and lower extremity radiculopathy. The patient has been making good progress postoperatively. They have completed the prophylactic antibiotics without any signs or symptoms of infection. The patient has been able to advance their diet, and is tolerating diet adequately. The pain was initially controlled with IV medications and is now controlled appropriately with oral medications. The patient has been able to increase their mobilization. He is able to turn around his room and into the hallways and is eager to try to go home today. The patient has progressed appropriately. I think they are in good stable condition for discharge today as long as he is safe with his mobilization and comfort with his oral medications. I again discussed with him the importance of not smoking. He should not have nicotine has this significantly decreases his ability for healing and positive results and he again states that he understands. They will be sent home with appropriate prescriptions. He is given prescriptions for pain, muscle relaxation for spasms, as well as a Chantix starting pack to keep him from smoking. I answered their questions to the best of my ability in a language that they can understand and they are agreeable with the plan. They will follow up as directed in approximately 2 weeks or sooner if he is having any problems. Patient Condition at Discharge: Good Plan - Discharge Summary Discharge Rx Participant: Yes New Discharge Prescriptions: New Diazepam [Valium] 5 mg PO TID PRN #90 tab PRN Reason: Spasms HYDROcodone/APAP 10-325MG [Delanson 10-325] 1 tab PO Q6H PRN #90 tab PRN Reason: Pain Varenicline [Chantix Starter Pack] 0.5 mg PO DIRECTED #53 tab No Action Escitalopram Oxalate [Lexapro] 10 mg PO QAM buPROPion XL [Wellbutrin Xl] 300 mg PO DAILY Hydrocodone/Acetaminophen [[place]anson 10-325] 1 tab PO QID Mometasone/Formoterol [Dulera 200 Mcg/5 Mcg Inhaler] 2 puff INHALATION DAILY PRN PRN Reason: Shortness Of Breath LORazepam [Ativan] 1 mg PO DAILY PRN PRN Reason: Anxiety Discharge Medication List Escitalopram Oxalate [Lexapro] 10 mg PO QAM 12/14/15 [History] Hydrocodone/Acetaminophen [Delanson 10-325] 1 tab PO QID 07/12/17 [History] LORazepam [Ativan] 1 mg PO DAILY PRN 07/12/17 [History] Mometasone/Formoterol [Dulera 200 Mcg/5 Mcg Inhaler] 2 puff INHALATION DAILY PRN 07/12/17 [History] buPROPion XL [Wellbutrin Xl] 300 mg PO DAILY 07/12/17 [History] Diazepam [Valium] 5 mg PO TID PRN #90 tab 07/20/17 [Rx] HYDROcodone/APAP 10-325MG [Delanson 10-325] 1 tab PO Q6H PRN #90 tab 07/20/17 [Rx] Varenicline [Chantix Starter Pack] 0.5 mg PO DIRECTED #53 tab 07/20/17 [Rx] Follow up Appointment(s)/Referral(s): Pasia,E Edward, DO [Doctor of Osteopathic Medicine] - 2 Weeks (Scheduled limited for 2 weeks' time. Please call for appointment earlier if there are any problems) Activity/Diet/Wound Care/Special Instructions: Keep site clean. May shower with waterproof Tegaderm intact. Do not soak in a tub. On Monday May remove dressing and then may shower with area uncovered, but leave Steri-Strips intact and allow them to fray off on their own. May ambulate to tolerance. Avoid heavy or rigorous activity. No repetitive bending twisting or lifting. No smoking. Discharge Disposition: HOME SELF-CARE
== END 2017-07-20 10:30 | disposition home or self-care (01) | DRG 455 ==
LOC: 2ORMAIN 09:57 → 3SUR 17:59
PROVIDERS: ADMIT Orthopaedic Surgery Orthopaedic Surgery of the Spine; ATTEND Orthopaedic Surgery Orthopaedic Surgery of the Spine
PROC: 0SG1071 Fusion of 2 or more Lumbar Vertebral Joints with Autologous Tissue Substitute, Posterior Approach, Posterior Column, Open Approach (ICD-10-PCS; 2017-07-19)
PROC: 0ST20ZZ Resection of Lumbar Vertebral Disc, Open Approach (ICD-10-PCS; 2017-07-19)
PROC: 07DS3ZZ Extraction of Vertebral Bone Marrow, Percutaneous Approach (ICD-10-PCS; 2017-07-19)
PROC: 4A11X4G Monitoring of Peripheral Nervous Electrical Activity, Intraoperative, External Approach (ICD-10-PCS; 2017-07-19)
PROC: 30233N0 Transfusion of Autologous Red Blood Cells into Peripheral Vein, Percutaneous Approach (ICD-10-PCS; 2017-07-19)
PROC: 0SG10AJ Fusion of 2 or more Lumbar Vertebral Joints with Interbody Fusion Device, Posterior Approach, Anterior Column, Open Approach (ICD-10-PCS; principal; 2017-07-19 12:00)
DX: M48.062 Spinal stenosis, lumbar region with neurogenic claudication (principal); M41.86 Other forms of scoliosis, lumbar region; J43.9 Emphysema, unspecified; M43.16 Spondylolisthesis, lumbar region; M51.16 Intervertebral disc disorders with radiculopathy, lumbar region; G47.33 Obstructive sleep apnea (adult) (pediatric); K21.9 Gastro-esophageal reflux disease without esophagitis; N40.0 Benign prostatic hyperplasia without lower urinary tract symptoms; F32.9 Major depressive disorder, single episode, unspecified; F17.210 Nicotine dependence, cigarettes, uncomplicated; Z79.51 Long term (current) use of inhaled steroids; Z79.891 Long term (current) use of opiate analgesic; Z79.899 Other long term (current) drug therapy; Z87.11 Personal history of peptic ulcer disease; Z98.1 Arthrodesis status; Z98.42 Cataract extraction status, left eye; Z98.41 Cataract extraction status, right eye; Z86.718 Personal history of other venous thrombosis and embolism
CPT/HCPCS: 72100; 80048; 84132; 85025; 86850; 86900; 86901

== ENCOUNTER → 2017-08-18 | Outpatient (CLI) | payer MEDICARE, BC | END | disposition home or self-care (01) | LOC: LABWHC1 10:51 | PROVIDERS: ATTEND Urology | DX: C61 Malignant neoplasm of prostate (principal) | CPT/HCPCS: 36415; 84153 ==

== ENCOUNTER → 2017-11-02 | Outpatient (CLI) | payer MEDICARE, BC ==
[~2017-11-02] MED LIST changes: -BACITRACIN 50,000 UNIT, POLYMYXIN B 500,000 UNIT in SODIUM CHLORIDE 0.9% IRRIGATIO 1,00... IRRIGATION ONE; -DEXAMETHASONE SOD PHOSPHATE 10 MG/ML 1 ML VIAL IV ONE; -HYDROmorphone 0.5 MG/0.5 ML SYRINGE IVP PRN; -ONDANSETRON 4 MG/2 ML VIAL IVP ONE; +REGADENOSON 0.4 MG/5 ML SYRINGE IV ONE; -ceFAZolin IN SWFI 2 GM/20 ML SYRINGE IVP ONE
--- NOTE | 2017-11-02 10:55 | NM ---
EXAMINATION TYPE: NM stress lexiscan cardiolite DATE OF EXAM: 11/02/2017 COMPARISON: 04/06/2015 HISTORY: Coronary artery disease with prior catheterization, tobacco abuse, COPD and family history o f coronary artery disease. Left arm pain. TECHNIQUE: After the intravenous administration of 9.8 mCi Tc 99m Sestamibi - Cardiolite resting SPE CT images acquired 50 minutes post injection. The patient received 0.4mg Lexiscan, 25 mCi Tc 99m Sestamibi - Stress images obtained 35 minutes post injection FINDINGS: Review of stress and rest SPECT images demonstrates no distinct perfusion abnormality. Gated analysi s shows normal wall motion with an estimated left ventricular ejection fraction of 60 %. TID is withi n normal limits calculated at 1.05. IMPRESSION: 1. No scintigraphic evidence for reversible ischemia, unchanged from the prior. 2. Estimated left ventricular ejection fraction of 60%.
--- NOTE | 2017-11-02 18:41 | P.STRESS ---
- Stress Test Note Stress Test Results/Findings: Exam Performed: NM stress lexiscan cardiolite Exam Date: 11/02/17 Reason for Exam: CHEST PAIN Height: 5 ft 8 in Weight: 82.554 kg Protocol: LEXISCAN Stage: NA Duration of Exercise: NA Resting Heart Rate: 62 Resting Blood Pressure: 134/75 Maximum Achieved Heart Rate: 79 Maximum Achieved Blood Pressure: 164/74 85% PMHR: 135 100% PMHR: 159 METS: NA Technologist Comment: Stress Test Results/Findings: This is a 62-year-old male being evaluated for symptoms of left arm pain. Patient also has history of smoking and family history of ischemic heart disease. Stress data: Recent EKG showed sinus rhythm, normal WA interval and QRS duration. Blood pressure at rest is 1 3475 with heart rate of 62. A standard dose of Lexiscan was infused. EKGs during and after the infusion did not reveal any changes to sized ischemia. Final impression: #1. Negative Lexiscan stress test #2. Report on the nuclear images to be given by the radiologist
--- NOTE | 2017-11-06 15:44 | EST ---
Stress Test Results/Findings: Exam Performed: NM stress lexiscan cardiolite Exam Date: 11/02/17 Reason for Exam: CHEST PAIN Height: 5 ft 8 in Weight: 82.554 kg Protocol: LEXISCAN Stage: NA Duration of Exercise: NA Resting Heart Rate: 62 Resting Blood Pressure: 134/75 Maximum Achieved Heart Rate: 79 Maximum Achieved Blood Pressure: 164/74 85% PMHR: 135 100% PMHR: 159 METS: NA Technologist Comment: Stress Test Results/Findings: This is a 62-year-old male being evaluated for symptoms of left arm pain. Patient also has history of smoking and family history of ischemic heart disease. Stress data: Recent EKG showed sinus rhythm, normal CT interval and QRS duration. Blood pressure at rest is 1 3475 with heart rate of 62. A standard dose of Lexiscan was infused. EKGs during and after the infusion did not reveal any changes to sized ischemia. Final impression: #1. Negative Lexiscan stress test #2. Report on the nuclear images to be given by the radiologist JEANA
== END | disposition home or self-care (01) ==
LOC: RADNMMAIN 08:08
PROVIDERS: ATTEND Family Medicine
DX: I25.10 Atherosclerotic heart disease of native coronary artery without angina pectoris (principal)
CPT/HCPCS: 93017; 78452; A9500; J2785

== ENCOUNTER → 2017-11-20 | Outpatient (CLI) | payer MEDICARE, BC | END | disposition home or self-care (01) | LOC: LABWHC1 08:22 | PROVIDERS: ATTEND Urology | DX: C61 Malignant neoplasm of prostate (principal) | CPT/HCPCS: 36415; 84153 ==

== ENCOUNTER → 2018-03-05 | Outpatient (CLI) | payer MEDICARE, BC | END | disposition home or self-care (01) | LOC: LABWHC1 09:55 | PROVIDERS: ATTEND Urology | DX: C61 Malignant neoplasm of prostate (principal) | CPT/HCPCS: 36415; 84153 ==

== ENCOUNTER 2018-04-04 09:09 | Day surgery (SDC) | payer MEDICARE, BC ==
[2018-04-02 08:52] VITALS: BMI 28.1
[~2018-04-04 09:09] MED LIST changes: +LACTATED RINGERS 1,000 ML IV SCH; -REGADENOSON 0.4 MG/5 ML SYRINGE IV ONE
[2018-04-04 09:33] VITALS: RESP 16; TEMP 97
[2018-04-04] MEDS ORDERED: PROPOFOL 10 MG/ML 20 ML VIAL IV ONE (09:57)
--- NOTE | 2018-04-04 10:04 | P.GSHP ---
History of Present Illness H&P Date: 04/04/18 Chief Complaint: Screening colonoscopy This is a 63-year-old male who presents today for screening colonoscopy patient denies any significant GI complaints. Past Medical History Past Medical History: Cancer, COPD, Eye Disorder, GERD/Reflux, Osteoarthritis ( OA), Prostate Disorder Additional Past Medical History / Comment(s): Prostate cancer,, POSSIBLE GLAUCOMA PT NOT SURE History of Any Multi-Drug Resistant Organisms: None Reported Past Surgical History: Back Surgery, Hernia Repair, Orthopedic Surgery Additional Past Surgical History / Comment(s): NECK SURGERY. 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 LT ROTATOR CUFF REPAIR, COLONOSCOPY., EGD, BILAT CATARACTS REMOVED Past Anesthesia/Blood Transfusion Reactions: No Reported Reaction Smoking Status: Current every day smoker - Past Family History Brother(s) Family Medical History: Pulmonary Embolus Mother Family Medical History: Cancer Sister(s) Family Medical History: Cancer Medications and Allergies Home Medications Medication Instructions Recorded Confirmed Type Escitalopram Oxalate [Lexapro] 10 mg PO QAM 12/14/15 04/02/18 History LORazepam [Ativan] 1 mg PO DAILY PRN 07/12/17 04/04/18 History Diazepam [Valium] 5 mg PO TID PRN #90 tab 07/20/17 04/04/18 Rx HYDROcodone/APAP 10-325MG [[place] 1 tab PO Q6H PRN #90 tab 07/20/17 04/02/18 Rx 10-325] Allergies Allergy/AdvReac Type Severity Reaction Status Date / Time No Known Allergies Allergy Verified 04/04/18 09:36 Surgical - Exam Vital Signs Temp Pulse Resp BP 97.0 F L 69 16 139/88 04/04/18 09:32 04/04/18 09:32 04/04/18 09:32 04/04/18 09:32 - General well developed, no distress - Eyes PERRL - ENT normal pinna - Neck no masses - Respiratory normal expansion - Cardiovascular Rhythm: regular - Abdomen Abdomen: soft, non tender Assessment and Plan Assessment: We'll perform screening colonoscopy.
[2018-04-04] MEDS: LACTATED RINGERS 1,000 ML IV ONE ×2 (10:13→10:21)
[2018-04-04] MEDS ORDERED: LACTATED RINGERS 1,000 ML IV ONE (10:17)
[2018-04-04] MEDS ORDERED: IV FLUID CONTINUATION 1,000 ML IV ONE (10:17)
--- NOTE | 2018-04-04 10:18 | P.OP ---
Date of Procedure: 04/04/18 Preoperative Diagnosis: Screening colonoscopy Postoperative Diagnosis: Normal colon Procedure(s) Performed: Colonoscopy Anesthesia: MAC Surgeon: Santosh Galaviz Pathology: none sent Condition: stable Disposition: PACU Description of Procedure: PROCEDURE: The patient was placed on the endoscopy table in the lateral position. Digital rectal examination was performed which revealed no abnormalities. The prostate was symmetrical without nodules. Flexible colonoscope was then placed in the patient's anus and passed throughout the entire colon. The ileocecal valve was visualized. The cecum, ascending, transverse, descending and sigmoid colon were normal. The rectum was normal as well. There were no masses, polyps or diverticula noted in the entire colon. SUMMARY OF FINDINGS: Normal colonoscopy.
[2018-04-04 10:36] VITALS: BP 134/83; PULSE 66
== END 2018-04-04 11:04 | disposition home or self-care (01) ==
LOC: ORWHC2ENDO 09:09
PROVIDERS: ATTEND Surgery
DX: Z12.11 Encounter for screening for malignant neoplasm of colon (principal); K21.9 Gastro-esophageal reflux disease without esophagitis; Z85.46 Personal history of malignant neoplasm of prostate; J44.9 Chronic obstructive pulmonary disease, unspecified; M19.90 Unspecified osteoarthritis, unspecified site; Z79.899 Other long term (current) drug therapy; F17.200 Nicotine dependence, unspecified, uncomplicated
CPT/HCPCS: J2704; G0121

== ENCOUNTER → 2018-08-14 | Outpatient (CLI) | payer MEDICARE, BC ==
--- NOTE | 2018-08-14 14:48 | CTL ---
EXAMINATION TYPE: CT Low Dose Lung DATE OF EXAM ORDERED: 08/14/2018 HISTORY: 63-year-old male History of tobacco use. Recent diagnosis of prostate CA.. Lung cancer scre ening CT DLP: 75.[address] CTDI: 2.1 mGy Automated exposure control for dose reduction was used. SCREENING VISIT: 15 month follow-up COMPARISON: 05/23/2017 TECHNIQUE: Low dose computed tomography scan was performed through the chest at 1 mm thick sections a nd reconstructed images in the coronal/sagittal plane. Coronal MIP reconstructions also performed. CT DIAGNOSTIC QUALITY: Satisfactory FINDINGS: Heart normal size without pericardial effusion. PFO closure device is present. Minimal coronary vesse l calcifications. Aorta normal caliber with conventional arch vessel branching anatomy. No thoracic lymphadenopathy by CT size criteria. There seems to be some postsurgical or posttraumatic changes along the right breast laterally, unchanged. Large caliber to the main right and the pulmonary arteries measuring 3.1 and 3.0 cm, respectively, schilling ggesting underlying pulmonary arterial hypertension. Mild emphysematous change and [id number] diffuse bronchial wall thickening. 7 mm elongated nodular thickening right midlung, axial image 177 is stable. 5 mm nodularity right middle lobe axial image 199 is unchanged. 6 mm posterior right lower lobe pulmonary nodule axial image 229 is unchanged. 4 mm posterior right midlung pulmonary nodule axial image 191 is unchanged. 7 mm left midlung pulmonary nodule axial image 174 is either new or was previously obscured and shoul d be followed. Scattered areas of patchy atelectasis or scarring redemonstrated. Post surgical changes of Harjinder fundoplication in the upper abdomen. Bones: No ununited fractures of a couple posterior lower ribs on each side seem to be new from 05/23/19 18. Given some sclerosis along the fracture margin, suspect more subacute or even chronic nonunited f racture deformities though new from 05/23/2017. Some additional old healed right posterior fracture def ormities are present more superiorly. IMPRESSION: 1. LungRADS Category 4A (suspicious, 5-15% chance of malignancy) -- a 7 mm left mid lung pulmonary no dule is either new or was previously obscured. Short interval follow-up is recommended. 2. The other scattered pulmonary nodules measuring up to 7 mm are unchanged and benign. 3. COPD with mild emphysema and pulmonary arterial hypertension. 4. Subacute versus chronic lower posterior rib fracture deformities though noted to be new from 018. RECOMMENDATIONS: 1. Three-month follow-up low-dose CT chest. 2. A smoking cessation. FOLLOW UP CT CHEST RECOMMENDATION: [address] LUNG RAD: Lung-Rad 4A Suspicious
== END | disposition home or self-care (01) ==
LOC: RADCTMAIN 12:00
PROVIDERS: ATTEND Family Medicine
DX: Z12.2 Encounter for screening for malignant neoplasm of respiratory organs (principal); R91.8 Other nonspecific abnormal finding of lung field; J43.9 Emphysema, unspecified; I27.21 Secondary pulmonary arterial hypertension; Z87.891 Personal history of nicotine dependence

== ENCOUNTER → 2018-08-22 | Outpatient (CLI) | payer MEDICARE, BC ==
--- NOTE | 2018-08-22 14:04 | CT ---
EXAMINATION TYPE: CT abdomen pelvis wo/w con DATE OF EXAM: 08/22/2018 COMPARISON: CT abdomen March 18, 2013 HISTORY: Malignant neoplasm of prostate. CT DLP: 2046 mGycm, Automated Exposure Control for Dose Reduction was Utilized. CONTRAST: CT scan of the abdomen and pelvis is performed with oral and without and with IV Contrast, patient in jected with 100 mL of Isovue M300. FINDINGS: LUNG BASES: There is persistent some right middle lobe and lingular linear scarring and/or atelectasi s. Atrial septal closure device is redemonstrated. LIVER/GB: No significant abnormality is appreciated. PANCREAS: No significant abnormality is seen. SPLEEN: No significant abnormality is seen. ADRENALS: No significant abnormality is seen. KIDNEYS: No renal calculi on noncontrast CT. Symmetric cortical medullary uptake and excretion from both kidneys on postcontrast images without hydronephrosis. Bladder wall shows moderate concentric wa ll thickening. BOWEL: Oral contrast reaches level of cecum making evaluation distal bowel suboptimal. There is no schilling spicious small or large bowel dilatation. Mild wall thickening involving transverse and left colon is felt present. Finding presumed product of poor distention but a mild colitis cannot be excluded, cor relate clinically. PROSTATE/SEMINAL VESICLES: Prostate gland is not suspiciously enlarged. TURP defect centrally felt pr esent. Scattered pelvic phleboliths are seen. No definitive suspicious adjacent adenopathy is noted. LYMPH NODES: No greater than 1cm abdominal or pelvic lymph nodes are appreciated. OSSEOUS STRUCTURES: Postsurgical change L3-L5 level with interpedicular rods and screws and metallic disc material is present. No new suspicious focal sclerotic lesions are identified. OTHER: Moderate sized fat-containing hernias. Moderate mixed plaque throughout the aorta with ectasia but no greater than 3 cm aneurysmal change. IMPRESSION: No suspicious mass or adenopathy to suggest metastatic disease.
--- NOTE | 2018-08-22 15:58 | NM ---
EXAMINATION TYPE: NM bone scan whole body DATE OF EXAM: 08/22/2018 COMPARISON: CT abdomen pelvis dated 08/22/2018 and low dose lung CT dated 08/14/2018 HISTORY: Prostate cancer. Delayed whole-body scanning was performed following the injection of 23.1 mCi Tc 99m MDP. Images acq uired 3 hours post injection. FINDINGS: Focal abnormal uptake is seen within the 12th, 11th and eighth posterior left ribs as well as within the sternal body. Within uptake within the ribs is correlated with the CT of 08/22/2018 these represen t nonunited likely subacute fracture deformities. Cervical spine and sternal body is not evaluated in could be further evaluated with radiograph's There is also mildly asymmetric uptake within the left vertebral body although postsurgical changes are seen at this level and this may be degenerative. Sym metric uptake within the acromioclavicular joints, glenohumeral joints, sacroiliac joints, ankles, an d risks, likely on a degenerative basis. Uptake is also seen within the left cervical spine at the cr aniocervical junction. IMPRESSION: 1. Multifocal left posterior rib uptake relates to subacute nonunited rib fractures. 2. Focal radiotracer uptake within the left lateral craniocervical junction is present for which gianna elation with cervical spine radiograph could be performed. 3. Focal uptake within the sternal body relates to the healing fracture deformity seen on the exam of 08/14/2018. 4. Degenerative changes of the axial and appendicular skeleton.
== END ==
LOC: RADNMMAIN 11:06
PROVIDERS: ATTEND Radiology Radiation Oncology
DX: S22.32XA Fracture of one rib, left side, initial encounter for closed fracture (principal); S22.22XD Fracture of body of sternum, subsequent encounter for fracture with routine healing; M85.80 Other specified disorders of bone density and structure, unspecified site; C61 Malignant neoplasm of prostate
CPT/HCPCS: 74178; 78306; A9503; Q9967

== ENCOUNTER → 2018-10-09 | Outpatient (CLI) | payer MEDICARE, BC ==
[2018-10-09 12:15] LABS: Basophils # (A) 0.1 k/uL (0-0.2); Basophils % (A) 1 %; Eosinophils # (A) 0.1 k/uL (0-0.7); Eosinophils % (A) 1 %; HCT 45.6 % (39.0-53.0); HGB 14.5 gm/dL (13.0-17.5); Lymphocytes # (A) 1.8 k/uL (1.0-4.8); Lymphocytes % (A) 23 %; MCH 31.8 pg (25.0-35.0); MCHC 31.7 g/dL (31.0-37.0); MCV 100.2 fL (80.0-100.0); Macrocytosis Slight; Mean Platelet Volume 7.9; Monocytes # (A) 0.4 k/uL (0-1.0); Monocytes % (A) 5 %; Neutrophils # (A) 5.5 k/uL (1.3-7.7); Neutrophils % (A) 70 %; Platelet Count 217 k/uL (150-450); RBC 4.55 m/uL (4.30-5.90); RDW 14.7 % (11.5-15.5); WBC 7.9 k/uL (3.8-10.6)
[2018-10-09 15:58] LABS: Albumin 4.6 g/dL (3.80-4.90); Bilirubin, Conjugated 0.2 mg/dL (0.20-0.40); Bilirubin,Unconjugated 0.4 mg/dL; Globulin 2.3 g/dL (1.6-3.3); Total Bilirubin 0.6 mg/dL (0.3-1.2); Total Protein 6.9 g/dL (6.2-8.2)
== END | disposition home or self-care (01) ==
LOC: LABWHC1 10:14
PROVIDERS: ATTEND Radiology Radiation Oncology
DX: C61 Malignant neoplasm of prostate (principal); F17.210 Nicotine dependence, cigarettes, uncomplicated
CPT/HCPCS: 36415; 80076; 84153; 85025

== ENCOUNTER → 2018-10-23 | Outpatient (CLI) | payer MEDICARE, BC ==
[2018-10-23 09:56] LABS: HCT 44.1 % (39.0-53.0); MCH 31.9 pg (25.0-35.0); MCHC 31.7 g/dL (31.0-37.0); MCV 100.6 fL (80.0-100.0); Mean Platelet Volume 7.3; Platelet Count 206 k/uL (150-450); RBC 4.39 m/uL (4.30-5.90); RDW 13.3 % (11.5-15.5); WBC 8.8 k/uL (3.8-10.6)
[2018-10-23 16:02] LABS: ALT 20 U/L (10-49); AST 23 U/L (14-35); African American GFR (CKD) 82.9 (60.0-200.0); Alkaline Phosphatase 82 U/L (41-126); BUN/Creat Ratio 26.36 Ratio (12.00-20.00); Bilirubin, Conjugated <0.20 mg/dL (0.20-0.40); Calcium 9.3 mg/dL (8.7-10.3); Carbon Dioxide 25.6 mmol/L (21.6-31.8); Chloride 110 mmol/L (96-109); Glucose 97 mg/dL (70-110); Phosphorus 2.7 mg/dL (2.4-5.1); Sodium 140 mmol/L (135-145); Total Bilirubin 0.3 mg/dL (0.3-1.2); Total Protein 6.4 g/dL (6.2-8.2)
== END | disposition home or self-care (01) ==
LOC: LABWHC1 08:41
PROVIDERS: ATTEND Surgery
DX: C61 Malignant neoplasm of prostate (principal)
CPT/HCPCS: 36415; 80048; 80076; 82306; 83735; 84100; 84153; 84403; 85027

== ENCOUNTER → 2019-01-28 | Outpatient (CLI) | payer MEDICARE, BC ==
--- NOTE | 2019-01-29 07:53 | ECHOF ---
Referral Reason:Q21.1 Rebollar Foramen Ovale patch/atrial septal def MEASUREMENTS -------- HEIGHT: 172.7 cm WEIGHT: 79.4 kg BP: 102/63 RVIDd: 3.8 cm (< 3.3) IVSd: 1.2 cm (0.6 - 1.1) LVIDd: 4.4 cm (3.9 - 5.3) LVPWd: 1.2 cm (0.6 - 1.1) IVSs: 1.7 cm LVIDs: 2.9 cm LVPWs: 1.5 cm LA Diam: 3.8 cm (2.7 - 3.8) LAESV Index (A-L): 23.22 ml/m Ao Diam: 3.5 cm (2.0 - 3.7) AV Cusp: 2.1 cm (1.5 - 2.6) MV EXCURSION: 13.341 mm (> 18.000) MV EF SLOPE: 65 mm/s (70 - 150) EPSS: 0.2 cm MV E Patrice: 0.53 m/s MV DecT: 271 ms MV A Patrice: 0.66 m/s MV E/A Ratio: 0.81 RAP: 5.00 mmHg RVSP: 25.98 mmHg FINDINGS -------- Sinus rhythm. This was a technically adequate study. The left ventricular size is normal. There is borderline concentric left ventricular hypertrophy. Overall left ventricular systolic function is normal with, an EF between 55 - 60 %. The right ventricle is mild to moderately enlarged. Normal LA size by volume 22+/-6 ml/m2. The right atrial size is normal. Interatrial and interventricular septum intact. There is an interatrial closure device in place wit hout evidence of shunt. The aortic valve is trileaflet, and appears structurally normal. No aortic stenosis or regurgitation. The mitral valve is normal. There is trace to mild mitral regurgitation. Mild tricuspid regurgitation present. Right ventricular systolic pressure is normal at < 35 mmHg. Moderate pulmonic regurgitation. The aortic root size is normal. Normal inferior vena cava with normal inspiratory collapse consistent with estimated right atrial pre ssure of 5 mmHg. There is no pericardial effusion. CONCLUSIONS -------- 1. Sinus rhythm. 2. This was a technically adequate study. 3. The left ventricular size is normal. 4. There is borderline concentric left ventricular hypertrophy. 5. Overall left ventricular systolic function is normal with, an EF between 55 - 60 %. 6. The right ventricle is mild to moderately enlarged. 7. Normal LA size by volume 22+/-6 ml/m2. 8. There is an interatrial closure device in place without evidence of shunt. 9. The aortic valve is trileaflet, and appears structurally normal. No aortic stenosis or regurgitati on. 10. There is trace to mild mitral regurgitation. 11. Mild tricuspid regurgitation present. 12. Right ventricular systolic pressure is normal at < 35 mmHg. 13. Moderate pulmonic regurgitation. 14. The aortic root size is normal. 15. Normal inferior vena cava with normal inspiratory collapse consistent with estimated right atrial pressure of 5 mmHg. 16. There is no pericardial effusion. FORMULATION TECHNICIAN: Emily Garza RDCS
== END | disposition home or self-care (01) ==
LOC: RADECHMAIN 15:22
PROVIDERS: ATTEND Family Medicine
DX: I37.1 Nonrheumatic pulmonary valve insufficiency (principal); Z95.818 Presence of other cardiac implants and grafts
CPT/HCPCS: 93306

== ENCOUNTER 2019-02-12 20:38 | Emergency (ER) | payer MEDICARE, BC ==
[2019-02-12 21:16] VITALS: TEMP 98
--- NOTE | 2019-02-12 22:08 | ED ---
Recheck HPI - General Chief Complaint: Recheck/Abnormal Lab/Rx Stated Complaint: High potassium, sent by Source: patient Mode of arrival: ambulatory Limitations: no limitations - History of Present Illness Initial Comments: Curry is a pleasant 63-year-old gentleman with past medical history of prostate cancer who presents to the ER today after routine outpatient labs revealed hyperkalemia. Patient was contacted by us primary care office and advised to come to the ER for recheck. Patient denies any acute complaints reports he's been eating and drinking well not taking any potassium supplements having normal urination. - Related Data Home Medications Medication Instructions Recorded Confirmed Amitriptyline HCl [Elavil] 10 mg PO HS 02/12/19 02/12/19 Escitalopram [Lexapro] 20 mg PO DAILY 02/12/19 02/12/19 Tamsulosin [Flomax] 0.4 mg PO DAILY 02/12/19 02/12/19 Previous Rx's Medication Instructions Recorded HYDROcodone/APAP 10-325MG [[place] 1 tab PO Q6H PRN #90 tab 07/20/17 10-325] Allergies Allergy/AdvReac Type Severity Reaction Status Date / Time No Known Allergies Allergy Verified 02/12/19 22:26 Review of Systems ROS Statement: Those systems with pertinent positive or pertinent negative responses have been documented in the HPI. ROS Other: All systems not noted in ROS Statement are negative. Past Medical History Past Medical History: Cancer, COPD, Eye Disorder, GERD/Reflux, Osteoarthritis (OA), Prostate Disorder Additional Past Medical History / Comment(s): Prostate cancer,, POSSIBLE GLAUCOMA PT NOT SURE History of Any Multi-Drug Resistant Organisms: None Reported Past Surgical History: Back Surgery, Hernia Repair, Orthopedic Surgery Additional Past Surgical History / Comment(s): NECK SURGERY. 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 LT ROTATOR CUFF REPAIR, COLONOSCOPY., EGD, BILAT CATARACTS REMOVED Past Anesthesia/Blood Transfusion Reactions: No Reported Reaction Past Psychological History: Anxiety, Depression Smoking Status: Current every day smoker Past Alcohol Use History: Occasional Past Drug Use History: None Reported - Past Family History Brother(s) Family Medical History: Pulmonary Embolus Mother Family Medical History: Cancer Sister(s) Family Medical History: Cancer General Exam - General Exam Comments Initial Comments: Physical Exam GENERAL: Patient is well-developed and well-nourished. Patient is nontoxic and well-hydrated and is in no distress. HENT: Normocephalic, Atraumatic. EYES: PERRL, EOMI PULMONARY: Unlabored respirations. No audible rales rhonchi or wheezing was noted. CARDIOVASCULAR: There is a regular rate and rhythm without any murmurs gallops or rubs. ABDOMEN: Soft and nontender with normal bowel sounds. SKIN: Skin is clear with no lesions or rashes and otherwise unremarkable. : Deferred NEUROLOGIC: Patient is alert and oriented x3. Moving all extremities spontaneously MUSCULOSKELETAL: Normal extremities with adequate strength and full range of motion. No lower extremity swelling or edema. No calf tenderness. PSYCHIATRIC: Normal psychiatric evaluation. Limitations: no limitations Course Vital Signs 02/12/19 21:14 Temperature 98.0 F Pulse Rate 88 Respiratory 18 Rate Blood Pressure 100/73 O2 Sat by Pulse 100 Oximetry Medical Decision Making - Medical Decision Making Patient was seen and evaluated, history obtained from patient Labs and EKG ordered EKG obtained at 21:41 rate 74, rhythm sinus with incomplete RBBB, prolonged QT, no acute ST elevations or depressions, no hyperacute T waves, WI 146, QRS 104, QTc 470 Labs resulted with a potassium of only 4.6, mildly elevated BUN and creatinine. No other significant abnormalities. At this time patient stable for discharge home - Lab Data Result diagrams: 02/12/19 21:47 02/12/19 21:47 Lab Results 02/12/19 02/12/19 Range/Units 21:47 21:47 WBC 9.1 (3.8-10.6) k/uL RBC 3.98 L (4.30-5.90) m/uL Hgb 13.2 (13.0-17.5) gm/dL Hct 40.5 (39.0-53.0) % MCV 101.6 H (80.0-100.0) fL MCH 33.1 (25.0-35.0) pg MCHC 32.6 (31.0-37.0) g/dL RDW 14.0 (11.5-15.5) % Plt Count 215 (150-450) k/uL Neutrophils % 66 % Lymphocytes % 23 % Monocytes % 6 % Eosinophils % 2 % Basophils % 1 % Neutrophils # 6.0 (1.3-7.7) k/uL Lymphocytes # 2.1 (1.0-4.8) k/uL Monocytes # 0.6 (0-1.0) k/uL Eosinophils # 0.2 (0-0.7) k/uL Basophils # 0.1 (0-0.2) k/uL Macrocytosis Slight Sodium 140 (137-145) mmol/L Potassium 4.6 (3.5-5.1) mmol/L Chloride 107 (98-107) mmol/L Carbon Dioxide 29 (22-30) mmol/L Anion Gap 4 mmol/L BUN 28 H (9-20) mg/dL Creatinine 1.27 H (0.66-1.25) mg/dL Est GFR (CKD-EPI)AfAm 70 (>60 ml/min/1.73 sqM) Est GFR (CKD-EPI)NonAf 60 (>60 ml/min/1.73 sqM) Glucose 96 (74-99) mg/dL Calcium 9.3 (8.4-10.2) mg/dL Magnesium 2.5 H (1.6-2.3) mg/dL Total Bilirubin 0.2 (0.2-1.3) mg/dL AST 27 (17-59) U/L ALT 25 (21-72) U/L Alkaline Phosphatase 80 (38-126) U/L Total Protein 6.5 (6.3-8.2) g/dL Albumin 3.8 (3.5-5.0) g/dL Disposition Clinical Impression: Abnormal laboratory test result Disposition: HOME SELF-CARE Condition: Stable Is patient prescribed a controlled substance at d/c from ED?: No Referrals: Ramesh Kaiser MD [Primary Care Provider] - 1-2 days
[2019-02-12 22:16] LABS: Basophils # (A) 0.1 k/uL (0-0.2); Basophils % (A) 1 %; Eosinophils # (A) 0.2 k/uL (0-0.7); Eosinophils % (A) 2 %; HCT 40.5 % (39.0-53.0); HGB 13.2 gm/dL (13.0-17.5); Lymphocytes # (A) 2.1 k/uL (1.0-4.8); Lymphocytes % (A) 23 %; MCH 33.1 pg (25.0-35.0); MCHC 32.6 g/dL (31.0-37.0); MCV 101.6 fL (80.0-100.0); Macrocytosis Slight; Mean Platelet Volume 6.7; Monocytes # (A) 0.6 k/uL (0-1.0); Monocytes % (A) 6 %; Neutrophils % (A) 66 %; Platelet Count 215 k/uL (150-450); RBC 3.98 m/uL (4.30-5.90); WBC 9.1 k/uL (3.8-10.6)
[2019-02-12 22:25] LABS: Albumin 3.8 g/dL (3.5-5.0); Calcium 9.3 mg/dL (8.4-10.2); Magnesium 2.5 mg/dL (1.6-2.3); Potassium 4.6 mmol/L (3.5-5.1); Total Bilirubin 0.2 mg/dL (0.2-1.3); Total Protein 6.5 g/dL (6.3-8.2)
[2019-02-13 00:25] VITALS: BP 108/72; PULSE 91; RESP 20
== END 2019-02-12 22:59 | disposition home or self-care (01) ==
LOC: EC 20:38
DX: R79.89 Other specified abnormal findings of blood chemistry (principal); I45.10 Unspecified right bundle-branch block; I45.81 Long QT syndrome; F32.9 Major depressive disorder, single episode, unspecified; F41.9 Anxiety disorder, unspecified; F17.200 Nicotine dependence, unspecified, uncomplicated; Z79.899 Other long term (current) drug therapy; Z85.46 Personal history of malignant neoplasm of prostate; Z87.74 Personal history of (corrected) congenital malformations of heart and circulatory system
CPT/HCPCS: 36415; 80053; 83735; 85025; 93005; 99285

== ENCOUNTER → 2019-02-12 | Outpatient (CLI) | payer MEDICARE, BC ==
[2019-02-12 11:27] LABS: HCT 42.4 % (39.0-53.0); HGB 14.2 gm/dL (13.0-17.5); MCH 32.9 pg (25.0-35.0); MCHC 33.6 g/dL (31.0-37.0); MCV 97.7 fL (80.0-100.0); Mean Platelet Volume 6.3; Platelet Count 247 k/uL (150-450); RBC 4.33 m/uL (4.30-5.90); RDW 13.8 % (11.5-15.5); WBC 9.4 k/uL (3.8-10.6)
[2019-02-12 18:51] LABS: ALT 29 U/L (10-49); AST 24 U/L (14-35); African American GFR (CKD) 74.7 (60.0-200.0); Albumin/Globulin Ratio 1.95 (1.60-3.17); Alkaline Phosphatase 92 U/L (41-126); BUN/Creat Ratio 21.67 Ratio (12.00-20.00); Bilirubin, Conjugated <0.20 mg/dL (0.20-0.40); Calcium 9.3 mg/dL (8.7-10.3); Carbon Dioxide 25.4 mmol/L (21.6-31.8); Chloride 106 mmol/L (96-109); Globulin 2.1 g/dL (1.6-3.3); Glucose 91 mg/dL (70-110); Magnesium 2.2 mg/dL (1.5-2.4); Phosphorus 3.5 mg/dL (2.4-5.1); Sodium 139 mmol/L (135-145); Total Bilirubin 0.4 mg/dL (0.3-1.2); Total Protein 6.2 g/dL (6.2-8.2)
[2019-02-13 12:27] LABS: Potassium 6.1 mmol/L (3.5-5.5)
== END | disposition home or self-care (01) ==
LOC: LABWHC1 10:03
PROVIDERS: ATTEND Surgery
DX: C61 Malignant neoplasm of prostate (principal)
CPT/HCPCS: 36415; 80048; 80076; 82306; 83735; 84100; 84153; 84403; 85027

== ENCOUNTER → 2019-02-19 | Outpatient (CLI) | payer MEDICARE, BC | END | disposition home or self-care (01) | LOC: RADBDWWP 15:07 | PROVIDERS: ATTEND Surgery | DX: Z53.9 Procedure and treatment not carried out, unspecified reason (principal) ==

== ENCOUNTER → 2019-03-01 | Outpatient (CLI) | payer MEDICARE, BC ==
[2019-03-01 15:16] LABS: Appearance,Urine Clear (Clear); Bilirubin,Urine Negative (Negative); Blood,Urine Negative (Negative); Color,Urine Yellow; Glucose,Urine (UA) Negative (Negative); Hyaline Casts,Urine 5 /lpf (0-2); Ketones,Urine Negative (Negative); Leukocyte Esterase,Urine Small (Negative); Mucus,Urine Rare /hpf; Nitrite,Urine Negative (Negative); Protein,Urine 1+ (Negative); RBC,Urine 1 /hpf (0-5); Specific Gravity,Urine 1.015 (1.001-1.035); Squamous Epithelial Cell,Urine 9 /hpf (0-4); Urobilinogen,Urine <2.0 mg/dL (<2.0)
== END ==
LOC: LABWHC1 14:06
PROVIDERS: ATTEND Radiology Radiation Oncology
DX: C61 Malignant neoplasm of prostate (principal); F17.210 Nicotine dependence, cigarettes, uncomplicated; R30.0 Dysuria; Z92.3 Personal history of irradiation; Z79.818 Long term (current) use of other agents affecting estrogen receptors and estrogen levels
CPT/HCPCS: 81001; 87086

== ENCOUNTER → 2019-06-07 | Outpatient (CLI) | payer MEDICARE, BC | END | disposition home or self-care (01) | LOC: LABWHC1 10:36 | PROVIDERS: ATTEND Surgery | DX: C61 Malignant neoplasm of prostate (principal) | CPT/HCPCS: 36415; 84153 ==

== ENCOUNTER → 2019-07-31 | Outpatient (CLI) | payer MEDICARE, BC | END | disposition home or self-care (01) | LOC: LABWHC1 13:39 | PROVIDERS: ATTEND Family Medicine | DX: B34.2 Coronavirus infection, unspecified (principal) | CPT/HCPCS: 87502; U0002 ==

== ENCOUNTER → 2019-09-26 | Outpatient (CLI) | payer MEDICARE, BC ==
[~2019-09-26] MED LIST changes: -LACTATED RINGERS 1,000 ML IV SCH; +REGADENOSON 0.4 MG/5 ML SYRINGE IV ONE
--- NOTE | 2019-09-26 12:00 | ECHOF ---
Referral Reason:R94.31 Abnormal EKG MEASUREMENTS -------- HEIGHT: 172.7 cm WEIGHT: 81.6 kg BP: RVIDd: 4.1 cm (< 3.3) IVSd: 1.4 cm (0.6 - 1.1) LVIDd: 4.7 cm (3.9 - 5.3) LVPWd: 1.2 cm (0.6 - 1.1) IVSs: 1.7 cm LVIDs: 2.9 cm LVPWs: 1.8 cm LA Diam: 3.9 cm (2.7 - 3.8) LAESV Index (A-L): 23.57 ml/m Ao Diam: 3.6 cm (2.0 - 3.7) AV Cusp: 2.6 cm (1.5 - 2.6) MV EXCURSION: 19.783 mm (> 18.000) MV EF SLOPE: 98 mm/s (70 - 150) EPSS: 0.3 cm MV E Patrice: 0.70 m/s MV DecT: 173 ms MV A Patrice: 0.62 m/s MV E/A Ratio: 1.12 RAP: 5.00 mmHg RVSP: 31.53 mmHg FINDINGS -------- Sinus rhythm. This was a technically adequate study. The left ventricular size is normal. There is moderate concentric left ventricular hypertrophy. O verall left ventricular systolic function is low-normal with, an EF between 50 - 55 %. The right ventricle is moderately enlarged. Normal LA size by volume 22+/-6 ml/m2. The right atrium is normal in size. Interatrial and interventricular septum intact. There is an interatrial closure device in place wit hout evidence of shunt. The aortic valve is trileaflet and appears structurally normal. The mitral valve leaflets are mildly thickened. Mild mitral regurgitation is present. Mild tricuspid regurgitation present. Right ventricular systolic pressure is normal at < 35 mmHg. Trace/mild (physiologic) pulmonic regurgitation. The aortic root size is normal. Normal inferior vena cava with normal inspiratory collapse consistent with estimated right atrial pre ssure of 5 mmHg. There is no pericardial effusion. CONCLUSIONS -------- 1. Sinus rhythm. 2. This was a technically adequate study. 3. The left ventricular size is normal. 4. There is moderate concentric left ventricular hypertrophy. 5. Overall left ventricular systolic function is low-normal with, an EF between 50 - 55 %. 6. The right ventricle is moderately enlarged. 7. Normal LA size by volume 22+/-6 ml/m2. 8. The right atrium is normal in size. 9. Interatrial and interventricular septum intact. 10. There is an interatrial closure device in place without evidence of shunt. 11. The aortic valve is trileaflet and appears structurally normal. 12. The mitral valve leaflets are mildly thickened. 13. Mild mitral regurgitation is present. 14. Mild tricuspid regurgitation present. 15. Right ventricular systolic pressure is normal at < 35 mmHg. 16. Trace/mild (physiologic) pulmonic regurgitation. 17. The aortic root size is normal. 18. Normal inferior vena cava with normal inspiratory collapse consistent with estimated right atrial pressure of 5 mmHg. 19. There is no pericardial effusion. PAD EXTRACTOR TENDER: Emily Garza RDCS
--- NOTE | 2019-09-26 13:07 | EST ---
EXERCISE STRESS DATE OF SERVICE: 09/26/2019 AGE: 64 SEX: Male HT: 5'8" WT: 180 lbs PROTOCOL: Lexiscan Cardiolite STAGE: DURATION OF EXERCISE: HEART RATE REST: 70 BLOOD PRESSURE REST: 111/73 MAXIMUM HEART RATE ACHIEVED: 87 MAXIMUM BLOOD PRESSURE: 108/71 85% MPHR: 133 100% MPHR: 157 METS: INDICATIONS: Abnormal EKG RESULTS: Baseline EKG revealed normal sinus rhythm without significant ST-T changes. There was minor right ventricular conduction delay. With Lexiscan administration, heart rate changed from 70-87 beats per minute. Blood pressure changed from 111/73 to 106/57, and came back to baseline. By EKG criteria this is an unremarkable Lexiscan stress test. FINAL IMPRESSION: By EKG criteria, this is an unremarkable Lexiscan stress test. The nuclear scan results which are more pertinent will be reported by the radiologist. MMODL / IJN: [id number] /
--- NOTE | 2019-09-26 13:12 | NM ---
EXAMINATION TYPE: NM stress lexiscan cardiolite DATE OF EXAM: 09/26/2019 COMPARISON: Prior exam 11/02/2017 HISTORY: Abnormal EKG TECHNIQUE: After the intravenous administration of 9.7 mCi Tc 99m Sestamibi - Cardiolite resting SPE CT images acquired 60 minutes post injection. The patient received 0.4mg Lexiscan, 25.8 mCi Tc 99m Sestamibi - Stress images obtained [address] injection FINDINGS: Review of stress and rest SPECT images demonstrates no distinct perfusion abnormality. Gated analysi s shows normal wall motion with an estimated left ventricular ejection fraction of 61 %. Exam is essentially stable IMPRESSION: No scintigraphic evidence for reversible ischemia.
== END | disposition home or self-care (01) ==
LOC: RADNMMAIN 07:31
PROVIDERS: ATTEND Family Medicine
DX: I08.1 Rheumatic disorders of both mitral and tricuspid valves (principal); Z95.818 Presence of other cardiac implants and grafts
CPT/HCPCS: 93017; 93306; 78452; A9500; J2785

== ENCOUNTER → 2019-11-26 | Outpatient (CLI) | payer MEDICARE, BC ==
--- NOTE | 2019-11-26 18:55 | BD ---
EXAMINATION TYPE: Axial Bone Density DATE OF EXAM: 11/26/2019 COMPARISON: NONE CLINICAL HISTORY: Malignant neoplasm prostate Height: 68 Weight: 181.1 FRAX RISK QUESTIONS: Alcohol (3 or more units per day): no Family History (Parent hip fracture): no Glucocorticoids (More than 3mos): no (Ex: prednisone, prednisolone, methylprednisolone, dexamethasone, and hydrocortisone). History of Fracture in Adulthood: yes Secondary Osteoporosis: no 1. Type 1 Diabetes: no 2. Hyperthyroidism: no 3. Menopause before 45: n/a 4. Malnutrition: no 5. Chronic liver disease: no Rheumatoid Arthritis: yes Current Tobacco Use: yes RISK FACTORS HISTORY OF: History of Wrist Fracture: left Surgery to Spine/Hip(right/left)/Wrist (right/left): surgery to spine When: 2 years ago Family History of Osteoporosis: no Active: yes Diet low in dairy products/other sources of calcium: yes MEDICATIONS: Lexapro, narco Additional History: EXAM MEASUREMENTS: Bone mineral densitometry was performed using the [employer] System. Bone mineral density about the R hip (g/cm2): 0.835 Bone mineral density about the L hip (g/cm2): 0.930 T Score values are as follows: -----R Neck: -1.5 -----L Neck: -0.8 -----R Total: -0.5 -----L Total: -0.2 Bone mineral density : baseline Bone mineral density about the R Wrist (g/cm2): 0.616 T Score values are as follows: -----Dist. R+U: -1.5 -----Prox. R+U: -1.6 -----Radius total: -2.0 Bone mineral density : baseline IMPRESSION: Osteopenia (T Score between -2.5 and -1). There is slightly increased risk of fracture and the patient may be considered for treatment. Re-Screen 2-5 years. NOTE: T-SCORE=SD OF THE YOUNG ADULT MEAN.
== END | disposition home or self-care (01) ==
LOC: RADBDWWP 08:25
PROVIDERS: ATTEND Radiology Radiation Oncology
DX: C61 Malignant neoplasm of prostate (principal); F17.210 Nicotine dependence, cigarettes, uncomplicated; Z92.3 Personal history of irradiation; Z79.818 Long term (current) use of other agents affecting estrogen receptors and estrogen levels; M85.80 Other specified disorders of bone density and structure, unspecified site
CPT/HCPCS: 36415; 77080; 84153

== ENCOUNTER → 2020-03-27 | Outpatient (CLI) | payer MEDICARE, BC ==
--- NOTE | 2020-03-27 10:51 | MM ---
Reason for exam: clinical finding. History: Patient has history of other cancer at age 64. Benign excisional biopsy of the right breast, 1989. Physical Findings: Nurse Summary: 1cm nodule in the right breast at 3 o'clock (nurse landry). MG Diagnostic Mammo w CAD JACQUELYN Bilateral CC and MLO view(s) were taken. There are scattered fibroglandular densities. Old post surgical deformity right breast. Fat necrosis calcification central posterior left breast. Mild to moderate gynecomastia on the left. Palpable marker right 3 o'clock with underlying vague density. These results were verbally communicated with the patient and result sheet given to the patient on 03/27/20. ASSESSMENT: Incomplete: need additional imaging evaluation, BI-RAD 0 RECOMMENDATION: Ultrasound of the right breast. (targeted to palpable)
--- NOTE | 2020-03-27 10:54 | USB ---
Reason for exam: additional evaluation requested from abnormal screening. History: Patient has history of other cancer at age 64. Benign excisional biopsy of the right breast, 1989. US Breast Limited BILAT Right limited breast ultrasound including focal area of concern, retroareolar and axilla demonstrates a 2.1 x 1.6 x 0.7cm solid, hyperechoic, vascular lesion at 2 o'clock for which a biopsy is recommended. Left limited breast ultrasound including focal area of concern, retroareolar and axilla demonstrates a 1.3 x 1.1 x 0.7cm gynecomastia at the posterior nipple as seen on mammogram, calcification also seen. These results were verbally communicated with the patient and result sheet given to the patient on 03/27/20. ASSESSMENT: Suspicious, BI-RAD 4 RECOMMENDATION: Ultrasound core biopsy of the right breast. Called Dr. Vigil's office with mammographic findings. Biopsy scheduled for 03/31/20 at 1:00. PRELIMINARY REPORT CALLED AND FAXED TO DR. VIGIL ON 03/27/20.
== END | disposition home or self-care (01) ==
LOC: RADMAMWWP 07:04
PROVIDERS: ATTEND Family Medicine
DX: N63.10 Unspecified lump in the right breast, unspecified quadrant (principal); N63.20 Unspecified lump in the left breast, unspecified quadrant; R92.8 Other abnormal and inconclusive findings on diagnostic imaging of breast
CPT/HCPCS: 77066

== ENCOUNTER → 2020-03-31 | Day surgery (SDC) | payer MEDICARE, BC ==
[2020-03-31 13:41] VITALS: BP 136/86; PULSE 61; RESP 16; TEMP 97.5
--- NOTE | 2020-03-31 16:49 | USB ---
EXAMINATION TYPE: US biopsy breast VAD RT DATE OF EXAM: 03/31/2020 CLINICAL HISTORY: N63 Lump. TECHNIQUE: Ultrasound guided vaccuum assisted core biopsy of right breast. COMPARISON: NONE FINDINGS: The ultrasound guided core biopsy procedure was explained to the patient. The risks, benef its, alternatives were discussed. Specific discussion regarding the risk for hemorrhage given vessels within this structure was discussed. An informed consent was then obtained. Timeout was performed. The patient was placed in supine positioning for imaging and for the procedure. The overlying skin w as prepped with betadine and sterilely draped in usual sterile fashion. Lidocaine 1% was used as ane sthetic into the skin and deeper breast tissue up to area of concern in the breast. A small skin nadine k was made with surgical scalpel. Under ultrasound guidance, a 12-gauge vacuum assisted biopsy device was used to obtain 3 core samples . The proximal portion of the lesion was biopsied, the vessels within the distal portion of the lesio n were avoided as best as possible. The lesion was well visualized following the procedure and a clip was not placed. Good hemostasis was obtained with direct pressure. No significant hemorrhage occurred during the exam . Discharge instructions were discussed with the patient. The patient will follow up with the referr ing physician for results. Postprocedure mammogram: Post procedure mammogram was not performed at this time, no clip placement w as performed. The patient tolerated the procedure well without any immediate complication. The patient was dischar ged to home in stable condition. IMPRESSION: 1. Successful ultrasound guided biopsy right breast. Recommendations: 1. Recommendations are pending pathology results.
== END ==
LOC: RADUSWWP 12:36
PROVIDERS: ATTEND Family Medicine
DX: N63.10 Unspecified lump in the right breast, unspecified quadrant (principal)
CPT/HCPCS: 88305; 19083; A4648; J2001

== ENCOUNTER → 2020-08-10 | Outpatient (CLI) | payer MEDICARE, BC ==
[2020-08-10 12:54] LABS: Basophils # (A) 0.1 k/uL (0-0.2); Basophils % (A) 1 %; Eosinophils # (A) 0.1 k/uL (0-0.7); Eosinophils % (A) 1 %; HCT 41.5 % (39.0-53.0); HGB 14.2 gm/dL (13.0-17.5); Lymphocytes # (A) 1.4 k/uL (1.0-4.8); Lymphocytes % (A) 17 %; MCH 33.9 pg (25.0-35.0); MCHC 34.1 g/dL (31.0-37.0); MCV 99.4 fL (80.0-100.0); Mean Platelet Volume 7.5; Monocytes # (A) 0.6 k/uL (0-1.0); Monocytes % (A) 7 %; Neutrophils # (A) 6.2 k/uL (1.3-7.7); Neutrophils % (A) 74 %; Platelet Count 253 k/uL (150-450); RBC 4.17 m/uL (4.30-5.90); RDW 13.6 % (11.5-15.5); WBC 8.4 k/uL (3.8-10.6)
[2020-08-10 13:05] LABS: ALT 17 U/L (4-49); AST 20 U/L (17-59); African American GFR (CKD) >90 (>60 ml/min/1.73 sqM); Albumin 3.5 g/dL (3.5-5.0); Albumin/Globulin Ratio 1.2; Alkaline Phosphatase 86 U/L (38-126); Anion Gap 5 mmol/L; Bilirubin,Unconjugated 0.4 mg/dL (0.0-1.1); Blood Urea Nitrogen 22 mg/dL (9-20); Calcium 9.4 mg/dL (8.4-10.2); Carbon Dioxide 26 mmol/L (22-30); Chloride 108 mmol/L (98-107); Globulin 2.9 g/dL; Glucose 125 mg/dL (74-99); Non-African American GFR(CKD) 83 (>60 ml/min/1.73 sqM); Potassium 4.2 mmol/L (3.5-5.1); Sodium 139 mmol/L (137-145); Total Bilirubin 0.4 mg/dL (0.2-1.3); Total Protein 6.4 g/dL (6.3-8.2)
[2020-08-10 21:25] LABS: Prostate Specific Antigen 0.1 ng/mL (0.0-4.5)
== END | disposition home or self-care (01) ==
LOC: LABWHC1 11:48
PROVIDERS: ATTEND Surgery
DX: C61 Malignant neoplasm of prostate (principal)
CPT/HCPCS: 36415; 80048; 80076; 82306; 84153; 84403; 85025

== ENCOUNTER → 2020-11-02 | Outpatient (CLI) | payer MEDICARE, BC ==
--- NOTE | 2020-11-02 13:53 | CTL ---
EXAMINATION TYPE: CT Low Dose Lung DATE OF EXAM ORDERED: 11/02/2020 HISTORY: 65-year-old male Z87.891, Personal hx of tobacco use. Lung cancer screening CT DLP: [address] CTDI: 1087 mGy Automated exposure control for dose reduction was used. SCREENING VISIT: Annual exam COMPARISON: 2 years following the previous annual exam on 08/14/2018 TECHNIQUE: Low dose computed tomography scan was performed through the chest with coronal and sagitta l reconstructions. CT DIAGNOSTIC QUALITY: Satisfactory FINDINGS: Heart normal size without pericardial effusion. Mild proximal LAD coronary artery calcifications. PFO closure device. Ectatic aortic root at 3.8 cm. Conventional arch vessel branching anatomy. Large caliber to the main right and left pulmonary arteries measuring up to 3.0 cm suggesting underly ing pulmonary artery hypertension. No thoracic lymphadenopathy by CT size criteria. Mild diffuse bronchial wall thickening. Some chronic volume loss and consolidation inferior lingula a nd medial basilar right middle lobe. Bands of atelectasis or scarring at the lung bases. 7 mm left mid lung pulmonary nodule, axial image 166, unchanged. New spiculated left upper lobe density measuring 2.4 x 1.4 cm is new. No new consolidation or pleural effusion. Visualized upper abdomen shows surgical material, likely related to prior Harjinder fundoplication. Visu alized upper abdomen otherwise shows no gross abnormality. Bones: Old, chronic ununited left posterolateral rib fracture deformities involving seventh, eighth, and ninth ribs. Additional ununited chronic fracture deformity of right posterior 11th rib. Moderate degenerative disc disease lower thoracic spine. This seems to be old healed fracture of the upper thi rd sternal body. IMPRESSION: 1. LungRADS Category 4B (suspicious, >15% chance of malignancy). A new spiculated left upper lobe den sity measuring 2.4 x 1.4 cm. Recommend further PET/CT evaluation and pulmonary medicine referral. 2. Mild diffuse bronchial wall thickening suggests bronchitis or chronic asthma. There may be underly ing pulmonary hypertension as well. CT LUNG RAD AND CT CHEST RECOMMENDATION: Lung-Rad 4B or 4X Very Suspicious: Follow-up Chest CT with o r without contrast or PET/CT and/or tissue sampling. PET/CT may be used when there is a > 8 mm solid component.
== END | disposition home or self-care (01) ==
LOC: RADCTMAIN 11:57
PROVIDERS: ATTEND Family Medicine
DX: Z12.2 Encounter for screening for malignant neoplasm of respiratory organs (principal); J98.4 Other disorders of lung; F17.200 Nicotine dependence, unspecified, uncomplicated
CPT/HCPCS: 71271

== ENCOUNTER → 2020-11-20 | Outpatient (CLI) | payer MEDICARE, BC ==
--- NOTE | 2020-11-20 16:16 | PE ---
Nuclear medicine PET/CT HISTORY: Solitary pulmonary nodule, prostate carcinoma, subsequent abnormal PET/CT The patient received 11.8 mCi F-18 FDG intravenously delayed scanning was performed from the skull ba se to the mid thighs. Localization and attenuation correction CT scan was performed. Correlation to CT dated 11/02/2020 Chest and neck: The left upper lobe lung mass shows associated hypermetabolic uptake, SUV only 2.4. T here is no evident pleural or pericardial effusion. Bilateral pleural thickening is present posterior ly, there are areas of scarring within the chest. Atrial septal defect occlusive device is incidental ly noted, is coronary artery calcification and possibly stent. Prominence of the pulmonary artery cou ld be indicative of pulmonary artery hypertension. There is no mediastinal, axillar, or hilar adenopa thy. No supraclavicular or cervical adenopathy. ABDOMEN: There is no evident liver mass, no adrenal mass or retroperitoneal adenopathy. No suspicious uptake. There is no ascites. Suspect postop change to the prostate. Osseous structures show degenerative disc change and facet arthropathy lower lumbar spine. Postop philipp nges are present to the lower lumbar spine. IMPRESSION: Abnormal uptake associated with the left upper lobe mass.
== END | disposition home or self-care (01) ==
LOC: RADPETMAIN 11:59
PROVIDERS: ATTEND Family Medicine
DX: C61 Malignant neoplasm of prostate (principal); R91.8 Other nonspecific abnormal finding of lung field; J92.9 Pleural plaque without asbestos
CPT/HCPCS: 78815; A9552

== ENCOUNTER → 2021-01-15 | Outpatient (CLI) | payer MEDICARE, BC ==
[2021-01-15 09:40] LABS: Basophils # (A) 0.1 k/uL (0-0.2); Basophils % (A) 1 %; Eosinophils # (A) 0.1 k/uL (0-0.7); Eosinophils % (A) 2 %; HCT 46.4 % (39.0-53.0); HGB 14.4 gm/dL (13.0-17.5); Lymphocytes # (A) 1.9 k/uL (1.0-4.8); Lymphocytes % (A) 27 %; MCH 31.2 pg (25.0-35.0); MCV 100.7 fL (80.0-100.0); Macrocytosis Slight; Mean Platelet Volume 7.7; Monocytes # (A) 0.5 k/uL (0-1.0); Monocytes % (A) 7 %; Neutrophils # (A) 4.4 k/uL (1.3-7.7); Neutrophils % (A) 62 %; Platelet Count 181 k/uL (150-450); RBC 4.61 m/uL (4.30-5.90); RDW 13.9 % (11.5-15.5)
[2021-01-15 09:47] LABS: Partial Thromboplastin Time 22.7 sec (22.0-30.0); Prothrombin Time 10.3 sec (9.0-12.0)
[2021-01-15 09:48] LABS: Potassium 4.9 mmol/L (3.5-5.1)
== END | disposition home or self-care (01) ==
LOC: LABPAT 08:51
PROVIDERS: ATTEND Thoracic Surgery (Cardiothoracic Vascular Surgery)
DX: Z01.812 Encounter for preprocedural laboratory examination (principal); Z20.822 Contact with and (suspected) exposure to COVID-19
CPT/HCPCS: 80051; 82565; 82947; 84520; 85025; 85610; 85730; 36415; U0003; U0005

== ENCOUNTER 2021-01-21 06:01 | Inpatient (IN) | payer MEDICARE, BC ==
[~2021-01-21 06:01] MED LIST changes: +DEXAMETHASONE SOD PHOSPHATE 4 MG/ML 1 ML VIAL IV ONE; +LACTATED RINGERS 1,000 ML IV SCH; +MIDAZOLAM 2 MG/2 ML VIAL IV PRN; +ONDANSETRON 4 MG/2 ML VIAL IVP ONE; -REGADENOSON 0.4 MG/5 ML SYRINGE IV ONE
[2021-01-21] MEDS ORDERED: HYDROmorphone 0.5 MG/0.5 ML SYRINGE IVP PRN (07:00)
[2021-01-21] MEDS ORDERED: LACTATED RINGERS 1,000 ML IV ONE ×3 (07:06→11:45)
[2021-01-21] MEDS ORDERED: MIDAZOLAM 2 MG/2 ML VIAL IVP ONE (07:19)
[2021-01-21] MEDS ORDERED: HYDROmorphone (PF) 1 MG/ML ONE (07:35)
[2021-01-21] MEDS ORDERED: PROPOFOL 10 MG/ML 20 ML VIAL IV ONE (07:35)
[2021-01-21] MEDS ORDERED: ALBUMIN HUMAN 5% (12.5gm) 250 ML BOTTLE IVPB ONE (07:35)
[2021-01-21] MEDS ORDERED: PHENYLEPHRINE-0.9% NACL SYG 1,000 MCG/10 ML SYRINGE ONE (07:35)
[2021-01-21] MEDS ORDERED: SUGAMMADEX SODIUM 500 MG/5 ML SDV IV ONE (07:35)
[2021-01-21] MEDS ORDERED: fentaNYL (PF) 50 MCG/ML 2 ML AMP ONE (07:35)
[2021-01-21] MEDS ORDERED: CALCIUM CHLORIDE 100 MG/ML 10 ML SYRINGE ONE (07:35)
[2021-01-21] MEDS ORDERED: SUCCINYLCHOLINE CHLORIDE 100 MG/5 ML SYR IV ONE (07:35)
[2021-01-21] MEDS ORDERED: LIDOCAINE 1% INJ 10MG/ML (20 ML MDV) ONE (07:35)
[2021-01-21] MEDS ORDERED: ROCURONIUM 10 MG/ML (5 ML VIAL) IV ONE (07:35)
[2021-01-21] MEDS ORDERED: BUPIVACAINE (PF) 0.5% 30 ML VIAL SQ ONE (08:30)
[2021-01-21 11:33] LABS: Basophils % (A) 0 %; Eosinophils # (A) 0.1 k/uL (0-0.7); Eosinophils % (A) 1 %; HCT 40.5 % (39.0-53.0); HGB 13.7 gm/dL (13.0-17.5); Lymphocytes # (A) 1.4 k/uL (1.0-4.8); Lymphocytes % (A) 14 %; MCH 33.6 pg (25.0-35.0); MCHC 33.8 g/dL (31.0-37.0); MCV 99.5 fL (80.0-100.0); Mean Platelet Volume 7.8; Monocytes # (A) 0.5 k/uL (0-1.0); Monocytes % (A) 5 %; Neutrophils # (A) 8.3 k/uL (1.3-7.7); Neutrophils % (A) 80 %; Platelet Count 171 k/uL (150-450); RBC 4.07 m/uL (4.30-5.90); RDW 13.5 % (11.5-15.5); WBC 10.4 k/uL (3.8-10.6)
[2021-01-21] MEDS ORDERED: NOREPINEPHRINE 4 MG in SODIUM CHLORIDE 0.9% 250 ML IV ONE (12:00)
[2021-01-21 12:10] LABS: Allen Test Performed? Yes
[2021-01-21 12:11] LABS: ABG Base Excess -4.8 mmol/L; ABG HCO3 22 mmol/L (21-25); ABG Oxygen Saturation 90.8 % (94-97); ABG PCO2 52 mmHg (35-45); ABG PH 7.26 (7.35-7.45); ABG PO2 68 mmHg (83-108)
[2021-01-21] MEDS ORDERED: SODIUM CHLORIDE 0.9% 100 ML with ceFAZolin 2,000 MG IV ONE ×2 (12:50)
[2021-01-21 13:24] LABS: Basophils % (A) 0 %; Eosinophils # (A) 0.1 k/uL (0-0.7); Eosinophils % (A) 1 %; HCT 41.4 % (39.0-53.0); HGB 14.2 gm/dL (13.0-17.5); Lymphocytes % (A) 8 %; MCH 32.5 pg (25.0-35.0); MCHC 34.2 g/dL (31.0-37.0); Mean Platelet Volume 8.3; Monocytes # (A) 0.6 k/uL (0-1.0); Monocytes % (A) 6 %; Neutrophils # (A) 9.9 k/uL (1.3-7.7); Neutrophils % (A) 84 %; Platelet Count 151 k/uL (150-450); RBC 4.35 m/uL (4.30-5.90); RDW 14.5 % (11.5-15.5); WBC 11.7 k/uL (3.8-10.6)
[2021-01-21 14:13] LABS: Glucose,Whole Blood 140 mg/dL (75-99)
--- NOTE | 2021-01-21 14:43 | P.OP ---
Date of Procedure: 01/21/21 Preoperative Diagnosis: Carcinoma left upper lobe lung Postoperative Diagnosis: same Procedure(s) Performed: Robotic-assisted left thoracoscopy with lysis of adhesions, conversion to left thoracotomy with left upper lobectomy and mediastinal lymph node dissection, decortication of left lower lobe, cryoablation of left intercostal nerves 3, 4, 5, 6 and 7. Anesthesia: GETA Surgeon: Lion Diaz Estimated Blood Loss (ml): 1,900 IV fluids (ml): 2,000 Urine output (ml): 150 Pathology: other (Left upper lobe for frozen section with bronchial margins negative, lymph node stations 5L, 6L, 7, 8L, 9L) Condition: stable Disposition: PACU Indications for Procedure: 65-year-old male referred for evaluation of left upper lobe mass consistent with carcinoma. PET scan was positive for uptake in the mass and negative for metastasis. Lymph nodes were not enlarged. Patient had a long smoking history and history of COPD. Pulmonary function was adequate forlobectomy. Cardiac stress test was negative. Elective surgery was scheduled. Operative Findings: There were dense adhesions pleasant in the pleural space particularly near the diaphragm. There was thick. Pleural peel over a portion of the lingula and much of the lower lobe. Lymphadenopathy was very small and anthracotic. Tissue planes were densely adherent and very difficult to dissect. Bronchial margin was negative on frozen section. Description of Procedure: The patient was brought to the operating room, placed supine on the operating table, anesthetized and intubated with a double-lumen endotracheal tube. Tube was positioned with fiberoptic bronchoscopy. There were no endobronchial lesions noted on the left or right. Tube was secured and the patient turned in the right lateral decubitus position. His appropriately positioned for robotic lobectomy. The left chest was sterilely prepped and draped. 4 incisions were made for the robotic ports the first being in the eighth interspace in the anter ior axillary line. Single lung ventilation was initiated and an 8 mm port was placed through this incision. Presence in the pleural space was confirmed and CO2 insufflation was begun. Next we placed a 12 mm port about 10 cm anterior to this and a second 12 mm port 10 cm posterior in the eighth interspace. A second 8 mm port was placed posteriorly in the fourth interspace. We began by taking d own the adhesions particularly against the posterior mediastinum and the diaphragm for the lower lobe as well as the lingula. Once we had successfully lysed all the adhesions and freed along the robot was docked. We began by dissecting in the fissure and dissected out the posterior segmental arterial branch of the pulmonary artery to the upper lobe. This was ligated and divided with a single firing of robotic vascular stapler. Dissection was carried along the pulmonary artery. There was a very large lingular branch. We dissected in this area we ran into pulsatile bleeding from the lingular branch. Direct pressure was applied and hemostasis was obtained. We then moved down to the inferior pulmonary ligament and mobilized it and began dissecting superiorly. The L9 lymph node was encountered and resected and sent for permanent section. As we continued dissecting we began to notice more and more bleeding coming from above. It was decided at this point the best thing was to open. The robot was undocked and removed andlateral thoracotomy incision was performed. The latissimus muscle was divided and the serratus muscle was mobilized and retracted anteriorly. The chest was entered in the fifth interspace in the intercostal muscles undercut anteriorly and posteriorly to allow rib spreading. Due to few retractors were placed. We then explored the chest and discovered the small perforation in the lingular artery. We were able to encircle the lingular artery and ligated and divided with 2 TA-30 vascular staplers. This controlled the bleeding. Next we moved anteriorly to the pulmonary vein. In trying to dissected around the pulmonary veins weekend developed perforation and the pulmonary vein. Again it should be noted that the dissection was extremely difficult due to the dense adhesions in the hilum. We were finally able to encircle the pulmonary vein and Ligate it with 2 TA-30 vascular staplers.Superior pulmonary vein was then divided and some residual bleeding controlled with pledgeted Prolene sutures. We now dissected out the left upper lobe bronchus. Lymph nodes were resected en bloc with the specimen. We were able to encircle the left upper lobe bronchus right at its takeoff from the mainstem bronchus and ligated it with a TA green stapler. Was divided distal to the staple line. We now dissected further on the pulmonary artery. There was one remaining branch proximally. This was encircled and ligated and divided with a Endo OCHOA Vascular stapler. The lobectomy specimen was removed from the field and sent for frozen section of the bronchial margin which returned negative. The completed the lymph node dissection by resecting L8, level 7, L6 and L5 lymph nodes.The lung was inflated. There were several small tears in the lung which were repaired with 6-0 Prolene. The bronchial stump was not leaking. There was dense peel over much of the lower lobe and this was decorticated. The lung expanded much better following decortication. 28-Mongolian chest tube was placed through separate stab incision and positioned posterior apically. It was secured with 0 Ethibond suture. The chest was irrigated out again. Rib blocks were performed with the AtriCure Endo ice system at levels 3, 4, 5, 6 and 7.Ribs were then reapproximated with #1 Vicryl. Muscle layers were closed with 0 Vicryl. Subcutaneous and subcuticular layers in the thoracotomy and thoracoscopy incisions were closed with 2-0 Vicryl and 40 in skin. Dry sterile dressings were applied. Chest tube with had been connected to a Pleur-evac. Patient was turned supine and extubated and transferred to recovery in stable condition.
[2021-01-21] MEDS ORDERED: HYDROcodone/APAP 10-325MG 1 EACH TAB PO PRN (14:53)
[2021-01-21] MEDS ORDERED: ONDANSETRON 4 MG/2 ML VIAL IVP PRN (14:53)
[2021-01-21] MEDS ORDERED: MECLIZINE 12.5 MG TAB PO PRN (14:53)
[2021-01-21] MEDS ORDERED: IPRATROPIUM-ALBUTEROL 3 ML NEB IH PRN (14:53)
[2021-01-21] MEDS ORDERED: bisacodyL 10 MG SUPP RECTAL PRN (14:53)
--- NOTE | 2021-01-21 14:56 | XR ---
EXAMINATION TYPE: XR chest 1V portable DATE OF EXAM: 01/21/2021 Comparison: 07/06/2017 Clinical History: 65-year-old male postop thoracotomy Findings: There is new opacification at the right hilum and medial right upper lobe probably prominent areas of atelectasis. Left-sided chest tube is present. Patchy left basilar opacity is present. No appreciabl e pneumothorax. PFO closure device. Impression: 1. Left-sided chest tube after thoracotomy. There is patchy atelectasis and/or effusion at the left b ase. 2. New prominent opacification along the right paratracheal stripe and right hilum likely extensive n ew areas of atelectasis. Follow-up recommended.
[2021-01-21 15:20] LABS: Glucose,Whole Blood 166 mg/dL (75-99)
[2021-01-21] MEDS: DEXTROSE 5%-0.45% NACL 1,000 ML IV SCH (15:36)
[2021-01-21 15:49] LABS: HCT 44.2 % (39.0-53.0); HGB 15.1 gm/dL (13.0-17.5); MCH 32.7 pg (25.0-35.0); MCHC 34.1 g/dL (31.0-37.0); MCV 95.9 fL (80.0-100.0); Mean Platelet Volume 7.9; Platelet Count 123 k/uL (150-450); RBC 4.61 m/uL (4.30-5.90); RDW 14.8 % (11.5-15.5); WBC 10.1 k/uL (3.8-10.6)
[2021-01-21] MEDS: HEPARIN SODIUM,PORCINE/PF 5,000 UNIT/0.5 ML SYRINGE SQ SCH ×2 (15:55→23:26)
[2021-01-21 15:57] LABS: African American GFR (CKD) >90 (>60 ml/min/1.73 sqM); Blood Urea Nitrogen 19 mg/dL (9-20); Non-African American GFR(CKD) >90 (>60 ml/min/1.73 sqM)
[2021-01-21] MEDS: IPRATROPIUM-ALBUTEROL 3 ML NEB IH SCH ×2 (16:50→21:53)
[2021-01-21] MEDS: KETOROLAC 15 MG/ML 1 ML VIAL IVP SCH ×2 (17:17→23:27)
[2021-01-21] MEDS: HYDROcodone/APAP 10-325MG 1 EACH TAB PO PRN (21:08)
[2021-01-21 22:49] LABS: ABG TCO2 16 mmol/L (19-24)
[2021-01-22] MEDS: HYDROcodone/APAP 10-325MG 1 EACH TAB PO PRN ×4 (01:54→23:13)
[2021-01-22] MEDS: KETOROLAC 15 MG/ML 1 ML VIAL IVP SCH (06:57)
[2021-01-22] MEDS: PANTOPRAZOLE 40 MG TABLET PO SCH (07:04)
--- NOTE | 2021-01-22 07:38 | XR ---
EXAMINATION TYPE: XR chest 1V portable DATE OF EXAM: 01/22/2021 HISTORY: Status post lobectomy. COMPARISON: 01/21/2021 TECHNIQUE: Single view of the chest is submitted. FINDINGS: Left-sided lobectomy change. There is left-sided chest tube with its distal tip within the left lung apex. I do not see evidence for sizable pneumothorax. There is increasing subcutaneous air noted. Ple ural-parenchymal density left lower lobe. The heart is stable. Hilar and mediastinal structures are within normal limits. Degenerative changes are seen of the dorsal spine. IMPRESSION: 1. Left-sided lobectomy change. There is left-sided chest tube with its distal tip within the left l yuli apex. I do not see evidence for sizable pneumothorax. There is increasing subcutaneous air noted.
--- NOTE | 2021-01-22 07:47 | P.PN ---
Subjective Progress Note Date: 01/22/21 Principal diagnosis: Carcinoma left upper lobe lung. Previous medical history of current tobacco dependence, hypertension, prostate cancer, DVT, arthritis, ASD closure, and family history of CAD and cancer POD #1 robotic-assisted left thoracoscopy with lysis of adhesions, conversion to left thoracotomy with left upper lobectomy and mediastinal lymph node dissection, decortication of the left lower lobe, cryoablation of left intercostal nerves III, 4, 5, 6, and 7 The patient is currently sitting up in a recliner in no acute distress in the intensive care unit eating breakfast. He denies shortness of breath, does complain of postsurgical left upper chest pain which is mostly controlled with current medication regimen. Remains in sinus rhythm, hemodynamically stable a lthough blood pressure is a little soft. Left pleural chest tube remains to continuous wall suction with intermittent air leak present, output 200 mL serosanguineous drainage overnight, 450 mL since surgery. Oxygenating well on 2 L nasal cannula, only able to achieve 750 mL on his incentive spirometry. Chest x-ray reviewed, labs still pending. No other new concerns. Objective - Vital Signs Vital signs: Vital Signs Temp 98.3 F 01/22/21 04:00 Pulse 85 01/22/21 05:00 Resp 19 01/22/21 05:00 BP 84/59 01/22/21 05:00 Pulse Ox 91 L 01/22/21 05:00 Intake & Output 01/21/21 01/22/21 01/22/21 18:59 06:59 18:59 Intake Total 3020 500 Output Total 2175 265 Balance 845 235 Weight 87.1 kg Intake: IV 2400 500 Dextrose 5%-0.45% NaCl 1, 200 500 000 ml @ 50 mls/hr IV . Q20H [facility] Rx#:[id number] Blood Product 620 Rc As-1 Unit 0 [id number] Rc As-1 Unit 0 [id number] Rc As-1 Unit 310 [id number] Rc As-1 Unit 310 [id number] Output: Drainage 50 Left Chest 50 Urine 325 265 Estimated Blood Loss 1800 Other: Voiding Method Indwelling Catheter Indwelling Catheter ABP, PAP, CO, CI - Last Documented Arterial Blood Pressure 102/92 - Exam CONSTITUTIONAL: Appears comfortable, cooperative, no acute distress RESPIRATORY: Lungs sounds diminished bilaterally with expiratory wheezes present. Respirations even, nonlabored. Currently on 2 L nasal cannula with oxygen saturation 94%. Only able to achieve 750 mL on incentive spirometry. Strong productive cough. CARDIOVASCULAR: S1, S2 present. Regular rate and rhythm, sinus rhythm on telemetry. Palpable peripheral pulses bilaterally. No edema present. No calf pain or tenderness noted. SCDs present. GASTROINTESTINAL: Abdomen soft, nontender, nondistended. Active bowel sounds present 4 quadrants. Tolerating diet. GENITOURINARY: Valera present draining clear, yellow urine. Output overnight 20-30 mL per hour INTEGUMENTARY: Skin is warm and dry with evidence of good perfusion. Thoracic incision well approximated and covered with dry intact dressing. NEUROLOGIC: Cranial nerves II through XII intact MUSKULOSKELETAL: Able to move all extremities, strength equal bilaterally PSYCHIATRIC: Alert and oriented to person place and time, appropriate affect, intact judgment and insight INVASIVE LINES AND TUBES: Left pleural chest tube present and connected to wall suction, intermittent air leak present, 200 mL serosanguineous drainage overnight, 400 mL since surgery - Allied health notes Allied health notes reviewed: nursing - Labs CBC & Chem 7: 01/21/21 15:40 01/21/21 15:40 Labs: Abnormal Lab Results - Last 24 Hours (Table) 01/15/21 01/21/21 01/21/21 Range/Units 09:00 11:15 11:20 WBC (3.8-10.6) k/uL RBC 4.07 L (4.30-5.90) m/uL Plt Count (150-450) k/uL Neutrophils # 8.3 H (1.3-7.7) k/uL ABG pH 7.26 L (7.35-7.45) ABG pCO2 52 H (35-45) mmHg ABG pO2 68 L (83-108) mmHg ABG Total CO2 16 L (19-24) mmol/L ABG O2 Saturation 90.8 L (94-97) % POC Glucose (mg/dL) (75-99) mg/dL Crossmatch See Detail 01/21/21 01/21/21 01/21/21 Range/Units 13:20 14:11 14:59 WBC 11.7 H (3.8-10.6) k/uL RBC (4.30-5.90) m/uL Plt Count (150-450) k/uL Neutrophils # 9.9 H (1.3-7.7) k/uL ABG pH (7.35-7.45) ABG pCO2 (35-45) mmHg ABG pO2 (83-108) mmHg ABG Total CO2 (19-24) mmol/L ABG O2 Saturation (94-97) % POC Glucose (mg/dL) 140 H 166 H (75-99) mg/dL Crossmatch 01/21/21 Range/Units 15:40 WBC (3.8-10.6) k/uL RBC (4.30-5.90) m/uL Plt Count 123 L (150-450) k/uL Neutrophils # (1.3-7.7) k/uL ABG pH (7.35-7.45) ABG pCO2 (35-45) mmHg ABG pO2 (83-108) mmHg ABG Total CO2 (19-24) mmol/L ABG O2 Saturation (94-97) % POC Glucose (mg/dL) (75-99) mg/dL Crossmatch - Imaging and Cardiology Chest x-ray: report reviewed, image reviewed Assessment and Plan Assessment: 1. Carcinoma left upper lobe lung, status post robotic-assisted left thoracoscopy with lysis of adhesions, conversion to left thoracotomy with left upper lobectomy and mediastinal lymph node dissection, decortication of the left lower lobe, cryoablation of left intercostal nerves III, 4, 5, 6, and 7 2. Current tobacco dependence 3. History of hypertension 4. History of prostate cancer 5. History of DVT 6. Arthritis 7. ASD closure 8. Family history of CAD and cancer Plan: 1. Will continue pleural chest tube to continuous wall suction, monitor for air leak resolution 2. Wean O2 as tolerated. Encourage incentive spirometry use 10 times every hour while awake. Bronchodilators per pulmonology 3. Increase activity, ambulate as tolerated. May add extension tubing to suction to allow patient to ambulate in the room 4. Will monitor daily labs and x-rays 5. Pain control with current medication regimen 6. GI/DVT prophylaxis 7. Smoking cessation counseling offered. Nicotine patch added 8. Continue IV fluids for now. Encourage oral intake. Hold losartan 9. Discontinue Valera catheter. May bladder scan and straight cath for greater than 300 mL residual. Continue Flomax 10. More recommendations to follow Time with Patient: Greater than 30
[2021-01-22] MEDS: ESCITALOPRAM 10 MG TAB PO SCH (07:59)
[2021-01-22] MEDS: TAMSULOSIN 0.4 MG CAP.ER.24H PO SCH (07:59)
[2021-01-22] MEDS: IPRATROPIUM-ALBUTEROL 3 ML NEB IH SCH ×4 (07:59→18:48)
[2021-01-22] MEDS: HEPARIN SODIUM,PORCINE/PF 5,000 UNIT/0.5 ML SYRINGE SQ SCH ×3 (08:00→23:13)
[2021-01-22] MEDS: NICOTINE 21MG/24HR PATCH TRANSDERM SCH (08:00)
[2021-01-22 09:12] LABS: Basophils % (A) 0 %; Eosinophils % (A) 0 %; HGB 13.2 gm/dL (13.0-17.5); Lymphocytes # (A) 1.5 k/uL (1.0-4.8); Lymphocytes % (A) 17 %; MCH 32.7 pg (25.0-35.0); MCHC 33.8 g/dL (31.0-37.0); MCV 96.7 fL (80.0-100.0); Mean Platelet Volume 7.9; Monocytes # (A) 0.7 k/uL (0-1.0); Monocytes % (A) 8 %; Neutrophils # (A) 6.4 k/uL (1.3-7.7); Neutrophils % (A) 72 %; Platelet Count 146 k/uL (150-450); RBC 4.04 m/uL (4.30-5.90); RDW 15.6 % (11.5-15.5); WBC 8.9 k/uL (3.8-10.6)
--- NOTE | 2021-01-22 09:29 | CONS ---
CONSULTATION 65-year-old white male, status post lung lobectomy, complaining of left shoulder pain. Remains on broad-spectrum antibiotics, updraft treatments q.i.d., Deridder for pain, subcu heparin, Toradol for pain, Zofran for nausea, Protonix for GERD, Flomax for BPH. He is postop lobectomy for possible lung cancer removal. Blood pressure is 103/79, pulse is 80s, respiratory 18-24, blood pressure 102/92, he is sating 98 on 2 L to 3 L. 14-point review of systems otherwise negative except for mentioned in HPI. Medications as mentioned above. PHYSICAL EXAMINATION: He is alert, oriented x3. Giving appropriate answers. 10/10 pain in his left shoulder. CARDIOVASCULAR: S1, S2. LUNGS: Mild wheeze on the right on his right lung, mild to moderate wheezing on the right side of the lungs. PSYCH: Fair mood and affect. NEUROLOGIC: Cranial nerves are intact. HEMATOLOGY: Negative Homans. ASSESSMENT: 1. Lung lobectomy for probable lung cancer. 2. Depression. 3. Chronic obstructive pulmonary disease. 4. Nicotine addiction. 5. Hypertension. 6. Neuropathy. 7. Degenerative disc disease. 8. History of prostate cancer. 9. Benign prostatic hypertrophy. 10.Prognosis guarded. Continue standard postop care for lung lobectomy. He has a left-sided chest tube after thoracotomy, patchy atelectasis and effusion at the left lung base. Has right-sided atelectasis in the right hilum. PROGNOSIS: Extremely guarded. MMODL / IJN: [id number] /
[2021-01-22 09:52] LABS: Calcium 8.2 mg/dL (8.4-10.2); Potassium 4.1 mmol/L (3.5-5.1); Total Bilirubin 0.7 mg/dL (0.2-1.3); Total Protein 5.4 g/dL (6.3-8.2)
[2021-01-22] MEDS: DEXTROSE 5%-0.45% NACL 1,000 ML IV SCH (11:22)
[2021-01-22 12:07] LABS: Potassium 4.9 mmol/L (3.5-5.1)
[2021-01-22] MEDS: KETOROLAC 15 MG/ML 1 ML VIAL IVP PRN (19:06)
[2021-01-22] MEDS: diazePAM 5 MG TAB PO SCH (20:49)
--- NOTE | 2021-01-22 23:19 | PN ---
PROGRESS NOTE This 65-year-old has carcinoma of the left upper lung, history of hypertension, prostate cancer, DVT, arthritis, ASD closure, status post robotic-assisted left thoracoscopy with lysis of adhesions, left thoracotomy with left upper lobectomy, mediastinal lymph node dissection, decortication of the left lower lobe, cryoablation of the left intercostal nerves 3, 4, 5, 6, 7. Cardiovascular: S1, S2. Lungs clear. GI soft. He is saturating well on 2 L; 91 to 93 on 2 L. Blood pressure is 100 over 60s, respiratory rate 16 to 18, pulses 80 to 85, temp 98.3. CARDIOVASCULAR: S1, S2. Lungs clear. GI soft. Hematology: Negative Homans. Left chest tubes in place. Plan is pain control. Wean off oxygen as tolerated. Continue breathing treatments. ASSESSMENT: 1. Carcinoma, left upper lung. 2. Nicotine addiction. 3. Hypertension. 4. Prostate cancer. 5. Deep vein thrombosis. 6. Arthritis. 7. ASD closure. Chest tube with continuous suction. Increase activity, pain control, smoking cessation. Continue IV fluids. Continue Valera catheter. MMODL / IJN: [id number] /
[2021-01-23] MEDS: KETOROLAC 15 MG/ML 1 ML VIAL IVP PRN (01:08)
[2021-01-23] MEDS: PANTOPRAZOLE 40 MG TABLET PO SCH (06:16)
[2021-01-23] MEDS: HYDROcodone/APAP 10-325MG 1 EACH TAB PO PRN ×3 (06:17→20:14)
--- NOTE | 2021-01-23 07:48 | XR ---
EXAMINATION TYPE: XR chest 1V portable DATE OF EXAM: 01/23/2021 CLINICAL HISTORY: Difficulty breathing progress study. Post partial pneumonectomy. TECHNIQUE: Single AP portable upright view of the chest is obtained. COMPARISON: Chest x-ray from one day earlier and older studies. FINDINGS: Persistent left apical chest tube with extensive adjacent subcutaneous emphysema. No visua lized pneumothorax. Background chronic emphysematous and pulmonary fibrotic change without new suspic ious focal airspace opacity. Cardiac silhouette size is stable and upper limits of normal with ectati c aorta. Anterior fusion plate mid cervical spine seen on current study. Punctate densities lower eso phageal level of uncertain etiology remain present. IMPRESSION: Persistent left apical chest tube without visualized pneumothorax. Extensive adjacent sub cutaneous emphysema redemonstrated. Background chronic emphysematous and pulmonary fibrotic changes w ithout new acute infiltrate. No significant change from one day earlier.
[2021-01-23 08:05] LABS: HCT 36.4 % (39.0-53.0); HGB 12.6 gm/dL (13.0-17.5); MCH 33.5 pg (25.0-35.0); MCHC 34.6 g/dL (31.0-37.0); MCV 96.8 fL (80.0-100.0); Mean Platelet Volume 8.5; Platelet Count 139 k/uL (150-450); RBC 3.76 m/uL (4.30-5.90); RDW 14.8 % (11.5-15.5); WBC 10.7 k/uL (3.8-10.6)
--- NOTE | 2021-01-23 08:16 | P.PN ---
Subjective Progress Note Date: 01/23/21 Principal diagnosis: Carcinoma left upper lobe lung. Previous medical history of current tobacco dependence, hypertension, prostate cancer, DVT, arthritis, ASD closure, and family history of CAD and cancer POD #2 robotic-assisted left thoracoscopy with lysis of adhesions, conversion to left thoracotomy with left upper lobectomy and mediastinal lymph node dissection, decortication of the left lower lobe, cryoablation of left intercostal nerves III, 4, 5, 6, and 7 The patient is currently sitting up in a recliner in no acute distress on the cardiac stepdown unit eating breakfast. He denies shortness of breath, does complain of postsurgical left upper chest pain which is mostly controlled with current medication regimen. Remains in sinus rhythm, hemodynamically stable. Left pleural chest tube remains to continuous wall suction with intermittent air leak present, output 30 mL serosanguineous drainage overnight, 200 mL last 24 hours. Oxygenating well on room air, able to achieve 1000 mL on his incentive spirometry. Chest x-ray reviewed, subcutaneous emphysema present on x-ray but not felt with palpation, labs still pending. No other new concerns. Objective - Vital Signs Vital signs: Vital Signs Temp 98.3 F 01/23/21 03:11 Pulse 85 01/23/21 06:49 Resp 24 01/23/21 06:49 BP 141/74 01/23/21 06:49 Pulse Ox 98 01/23/21 06:49 Intake & Output 01/22/21 01/23/21 01/23/21 18:59 06:59 18:59 Intake Total 800 240 Output Total 236 430 Balance 564 -430 240 Weight 85 kg Intake: IV 250 Dextrose 5%-0.45% NaCl 1, 250 000 ml @ 50 mls/hr IV . Q20H [facility] Rx#:[id number] Oral 550 240 Output: Chest Tube Drainage 30 Chest Tube Left Lateral 30 Chest Drainage 70 Left Chest 70 Urine 166 400 Other: Voiding Method Toilet Urinal Bedside Commode # Voids 1 ABP, PAP, CO, CI - Last Documented Arterial Blood Pressure 102/92 - Exam CONSTITUTIONAL: Appears comfortable, cooperative, no acute distress RESPIRATORY: Lungs sounds diminished bilaterally with expiratory wheezes present. Respirations even, nonlabored. Currently on room air with oxygen saturation 98%. Able to achieve 1000 mL on incentive spirometry. Strong productive cough. CARDIOVASCULAR: S1, S2 present. Regular rate and rhythm, sinus rhythm on telemetry. Palpable peripheral pulses bilaterally. No edema present. No calf pain or tenderness noted. SCDs present. GASTROINTESTINAL: Abdomen soft, nontender, nondistended. Active bowel sounds present 4 quadrants. Tolerating diet. GENITOURINARY: Valera discontinued yesterday, continues to void clear yellow urine INTEGUMENTARY: Skin is warm and dry with evidence of good perfusion. Thoracic incision well approximated and covered with dry intact dressing. NEUROLOGIC: Cranial nerves II through XII intact MUSKULOSKELETAL: Able to move all extremities, strength equal bilaterally PSYCHIATRIC: Alert and oriented to person place and time, appropriate affect, intact judgment and insight INVASIVE LINES AND TUBES: Left pleural chest tube present and connected to wall suction, intermittent air leak present, 30 mL serosanguineous drainage overnight, 200 mL in the last 24 hours - Allied health notes Allied health notes reviewed: nursing - Labs CBC & Chem 7: 01/23/21 07:26 01/22/21 08:32 Labs: Abnormal Lab Results - Last 24 Hours (Table) 01/15/21 01/21/21 01/22/21 Range/Units 09:00 15:40 08:32 WBC (3.8-10.6) k/uL RBC (4.30-5.90) m/uL Hgb (13.0-17.5) gm/dL Hct (39.0-53.0) % RDW (11.5-15.5) % Plt Count (150-450) k/uL Chloride 109 H 108 H (98-107) mmol/L Carbon Dioxide 21 L 21 L (22-30) mmol/L BUN 24 H (9-20) mg/dL Calcium 8.2 L (8.4-10.2) mg/dL Total Protein 5.4 L (6.3-8.2) g/dL Albumin 3.0 L (3.5-5.0) g/dL Crossmatch See Detail 01/22/21 01/23/21 Range/Units 08:35 07:26 WBC 10.7 H (3.8-10.6) k/uL RBC 4.04 L 3.76 L (4.30-5.90) m/uL Hgb 12.6 L (13.0-17.5) gm/dL Hct 36.4 L (39.0-53.0) % RDW 15.6 H (11.5-15.5) % Plt Count 146 L 139 L (150-450) k/uL Chloride (98-107) mmol/L Carbon Dioxide (22-30) mmol/L BUN (9-20) mg/dL Calcium (8.4-10.2) mg/dL Total Protein (6.3-8.2) g/dL Albumin (3.5-5.0) g/dL Crossmatch - Imaging and Cardiology Chest x-ray: report reviewed, image reviewed Assessment and Plan Assessment: 1. Carcinoma left upper lobe lung, status post robotic-assisted left thoracoscopy with lysis of adhesions, conversion to left thoracotomy with left upper lobectomy and mediastinal lymph node dissection, decortication of the left lower lobe, cryoablation of left intercostal nerves III, 4, 5, 6, and 7 2. Current tobacco dependence 3. History of hypertension 4. History of prostate cancer 5. History of DVT 6. Arthritis 7. ASD closure 8. Family history of CAD and cancer Plan: 1. Will continue pleural chest tube to continuous wall suction, monitor for air leak resolution 2. Encourage incentive spirometry use 10 times every hour while awake. Bronchodilators per pulmonology 3. Increase activity, ambulate as tolerated. May add extension tubing to suction to allow patient to ambulate in the room 4. Will monitor daily labs and x-rays 5. Pain control with current medication regimen 6. GI/DVT prophylaxis 7. Smoking cessation counseling offered. Nicotine patch added 8. Encourage oral intake. 9. Continue Flomax 10. More recommendations to follow Time with Patient: Greater than 30
--- NOTE | 2021-01-23 08:18 | P.CNPUL ---
History of Present Illness Consult date: 01/22/21 (Late entry note) Reason for consult: abnormal CXR/CT Chief complaint: Patient admitted electively for left upper lobe mass History of present illness: Patient is a pleasant 65-year-old male who was admitted into the hospital on January 21 for elective left upper lobe resection of mass as well as the lymph node dissection by Dr. Diaz, patient underwent left thoracotomy with lysis radiation and left upper lobe resection with lymph node dissection and decortication of left lower lobe, with cryoablation of left intercostal now off 3-7 under general anesthesia, patient lost almost 2 L of blood, patient has a left-sided chest tube with air leak with sanguinous discharge in the pleural VAC final path report however is pending, patient was diagnosed with left upper lobe mass recently also has significant history of depression COPD smoking hypertension hypertensive cardiovascular disease and GERD Review of Systems All systems: negative Past Medical History Past Medical History: Cancer, COPD, Eye Disorder, GERD/Reflux, Osteoarthritis (OA), Prostate Disorder Additional Past Medical History / Comment(s): Prostate cancer, POSSIBLE GLAUCOMA PT NOT SURE History of Any Multi-Drug Resistant Organisms: None Reported Past Surgical History: Back Surgery, Breast Surgery, Hernia Repair, Orthopedic Surgery Additional Past Surgical History / Comment(s): NECK SURGERY. 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 LT ROTATOR CUFF REPAIR, COLONOSCOPY., EGD, BILAT CATARACTS REMOVED. Right breast benign excisional biopsy 1989. Past Anesthesia/Blood Transfusion Reactions: No Reported Reaction Smoking Status: Current every day smoker - Past Family History Brother(s) Family Medical History: Pulmonary Embolus Mother Family Medical History: Cancer Sister(s) Family Medical History: Cancer Additional Family Medical History / Comment(s): 3 sisters have had cancer Medications and Allergies Home Medications Medication Instructions Recorded Confirmed Type HYDROcodone/APAP 10-325MG [[place] 1 tab PO Q6H PRN #90 tab 07/20/17 01/14/21 Rx 10-325] Escitalopram [Lexapro] 30 mg PO DAILY 02/12/19 01/14/21 History Tamsulosin [Flomax] 0.4 mg PO DAILY 02/12/19 01/14/21 History Diazepam [Valium] 5 mg PO HS 01/14/21 01/14/21 History Losartan Potassium 50 mg PO DAILY 01/14/21 01/14/21 History Meclizine [Antivert] 12.5 mg PO TID PRN 01/14/21 01/14/21 History Allergies Allergy/AdvReac Type Severity Reaction Status Date / Time No Known Allergies Allergy Verified 01/14/21 09:04 Physical Exam Vitals: Vital Signs Temp Pulse Pulse Resp BP BP Pulse Ox 01/22/21 16:11 98.2 F 75 18 103/71 01/22/21 16:03 100 01/22/21 15:50 100 93 L 01/22/21 14:31 98.9 F 98 16 100/69 93 L 01/22/21 13:31 20 01/22/21 12:02 104 H 01/22/21 12:00 93 20 105/72 98 01/22/21 11:51 96 01/22/21 11:00 91 23 98/70 94 L 01/22/21 10:00 97 20 95 01/22/21 09:00 92 25 H 98/70 94 L 01/22/21 08:12 96 01/22/21 08:01 88 01/22/21 08:00 99.6 F 91 16 85/69 95 01/22/21 07:40 25 H 01/22/21 07:00 93 21 95/68 95 01/22/21 06:00 77 24 94/73 96 01/22/21 05:00 85 19 84/59 91 L 01/22/21 04:00 98.3 F 77 18 96/61 93 L 01/22/21 03:00 90 18 95/58 94 L 01/22/21 02:00 87 18 84/73 91 L 01/22/21 01:00 84 19 89/50 96 01/22/21 00:00 98.2 F 86 16 83/55 96 01/21/21 23:00 88 16 87/60 93 L 01/21/21 22:08 82 01/21/21 22:00 80 21 103/79 98 01/21/21 21:53 82 97 01/21/21 21:00 87 14 98 01/21/21 20:00 98.2 F 105 H 20 97 01/21/21 19:30 106 H 23 94 L 01/21/21 19:00 98 13 92/62 94 L 01/21/21 18:30 88 14 95 01/21/21 18:00 89 16 94 L 01/21/21 17:30 102 H 13 97 01/21/21 17:05 88 01/21/21 17:00 87 18 98 01/21/21 16:55 85 Intake and Output 01/22/21 01/22/21 01/22/21 06:59 14:59 22:59 Intake Total 400 620 Output Total 215 236 Balance 185 384 Intake: IV 400 250 Dextrose 5%-0.45% NaCl 1, 400 250 000 ml @ 50 mls/hr IV . Q20H [facility] Rx#:[id number] Oral 370 Output: Drainage 70 Left Chest 70 Urine 215 166 Other: Voiding Method Indwelling Catheter Toilet Bedside Commode Weight 87.1 kg - Constitutional General appearance: average body habitus, cooperative, disheveled, mild distress - EENT Eyes: PERRLA Ears: bilateral: normal - Neck Neck: normal ROM Carotids: bilateral: upstroke normal Thyroid: bilateral: normal size - Respiratory Respiratory: bilateral: diminished - Cardiovascular Rhythm: regular Heart sounds: normal: S1, S2 - Gastrointestinal General gastrointestinal: normal bowel sounds - Integumentary Integumentary: normal - Neurologic Neurologic: CNII-XII intact - Musculoskeletal Musculoskeletal: gait normal, generalized weakness, strength equal bilaterally - Psychiatric Psychiatric: A&O x's 3, appropriate affect, intact judgment & insight Results - Laboratory Findings CBC and BMP: 01/23/21 07:26 01/22/21 08:32 ABG ABG pH 7.26 (7.35-7.45) L 01/21/21 11:20 ABG pCO2 52 mmHg (35-45) H 01/21/21 11:20 ABG pO2 68 mmHg (83-108) L 01/21/21 11:20 ABG O2 Saturation 90.8 % (94-97) L 01/21/21 11:20 Abnormal lab findings: Abnormal Labs 01/15/21 01/21/21 01/21/21 09:00 11:15 11:20 WBC RBC 4.07 L RDW Plt Count Neutrophils # 8.3 H ABG pH 7.26 L ABG pCO2 52 H ABG pO2 68 L ABG Total CO2 16 L ABG O2 Saturation 90.8 L Chloride Carbon Dioxide BUN POC Glucose (mg/dL) Calcium Total Protein Albumin Crossmatch See Detail 01/21/21 01/21/21 01/21/21 13:20 14:11 14:59 WBC 11.7 H RBC RDW Plt Count Neutrophils # 9.9 H ABG pH ABG pCO2 ABG pO2 ABG Total CO2 ABG O2 Saturation Chloride Carbon Dioxide BUN POC Glucose (mg/dL) 140 H 166 H Calcium Total Protein Albumin Crossmatch 01/21/21 01/21/21 01/22/21 15:40 15:40 08:32 WBC RBC RDW Plt Count 123 L Neutrophils # ABG pH ABG pCO2 ABG pO2 ABG Total CO2 ABG O2 Saturation Chloride 109 H 108 H Carbon Dioxide 21 L 21 L BUN 24 H POC Glucose (mg/dL) Calcium 8.2 L Total Protein 5.4 L Albumin 3.0 L Crossmatch 01/22/21 08:35 WBC RBC 4.04 L RDW 15.6 H Plt Count 146 L Neutrophils # ABG pH ABG pCO2 ABG pO2 ABG Total CO2 ABG O2 Saturation Chloride Carbon Dioxide BUN POC Glucose (mg/dL) Calcium Total Protein Albumin Crossmatch - Diagnostic Findings Chest x-ray: report reviewed, image reviewed (Left-sided thoracotomy with patchy atelectasis small effusion and basal atelectasis) Assessment and Plan Assessment: Left upper lobe mass status post left upper lobectomy and decortication of left lower lobe due to adhesions with lysis COPD Depression GERD Atelectasis Left-sided pleural effusion Plan: Continue bronchodilators Deep breathing exercise Incentive spirometry Pain control DVT prophylaxis Time with Patient: Greater than 30
--- NOTE | 2021-01-23 08:24 | P.PN ---
Subjective Progress Note Date: 01/23/21 Principal diagnosis: Left upper lobe mass status post left upper lobectomy and decortication of left lower lobe due to adhesions with lysis COPD Depression GERD Atelectasis Left-sided pleural effusion 01/23/2021, patient seen and evaluated examined during the rounds labs reviewed medications reviewed care plan discussed, patient sitting on upright in the chair, some pain on deep breathing is present less cough congestion, hemodynamic status stable, left-sided chest tube, around 660 mL of sanguinous fluid with air leak, labs from today reviewed white cell count is 10,700 hemoglobin is trending down but relatively stable 12.6, chemistry from yesterday reviewed, patient overall feeling better today in better spirits, chest x-ray from today reviewed no significant pneumothorax seen stable left-sided apical chest tube with extensive subcu emphysema no new infiltrate identified Patient is a pleasant 65-year-old male who was admitted into the hospital on January 21 for elective left upper lobe resection of mass as well as the lymph node dissection by Dr. Diaz, patient underwent left thoracotomy with lysis radiation and left upper lobe resection with lymph node dissection and decortication of left lower lobe, with cryoablation of left intercostal now off 3-7 under general anesthesia, patient lost almost 2 L of blood, patient has a left-sided chest tube with air leak with sanguinous discharge in the pleural VAC final path report however is pending, patient was diagnosed with left upper lobe mass recently also has significant history of depression COPD smoking hypertension hypertensive cardiovascular disease and GERD Objective - Vital Signs Vital signs: Vital Signs Temp 98.3 F 01/23/21 03:11 Pulse 85 01/23/21 06:49 Resp 24 01/23/21 06:49 BP 141/74 01/23/21 06:49 Pulse Ox 98 01/23/21 06:49 Intake & Output 01/22/21 01/23/21 01/23/21 18:59 06:59 18:59 Intake Total 800 240 Output Total 236 430 Balance 564 -430 240 Weight 85 kg Intake: IV 250 Dextrose 5%-0.45% NaCl 1, 250 000 ml @ 50 mls/hr IV . Q20H [facility] Rx#:[id number] Oral 550 240 Output: Chest Tube Drainage 30 Chest Tube Left Lateral 30 Chest Drainage 70 Left Chest 70 Urine 166 400 Other: Voiding Method Toilet Urinal Bedside Commode # Voids 1 ABP, PAP, CO, CI - Last Documented Arterial Blood Pressure 102/92 - Exam - Constitutional General appearance: average body habitus, cooperative, disheveled, mild distress - EENT Eyes: PERRLA Ears: bilateral: normal - Neck Neck: normal ROM Carotids: bilateral: upstroke normal Thyroid: bilateral: normal size - Respiratory Respiratory: bilateral: diminished - Cardiovascular Rhythm: regular Heart sounds: normal: S1, S2 - Gastrointestinal General gastrointestinal: normal bowel sounds - Integumentary Integumentary: normal - Neurologic Neurologic: CNII-XII intact - Musculoskeletal Musculoskeletal: gait normal, generalized weakness, strength equal bilaterally - Psychiatric Psychiatric: A&O x's 3, appropriate affect, intact judgment & insight - Labs CBC & Chem 7: 01/23/21 07:26 01/22/21 08:32 Labs: Abnormal Lab Results - Last 24 Hours (Table) 01/15/21 01/21/21 01/22/21 Range/Units 09:00 15:40 08:32 WBC (3.8-10.6) k/uL RBC (4.30-5.90) m/uL Hgb (13.0-17.5) gm/dL Hct (39.0-53.0) % RDW (11.5-15.5) % Plt Count (150-450) k/uL Chloride 109 H 108 H (98-107) mmol/L Carbon Dioxide 21 L 21 L (22-30) mmol/L BUN 24 H (9-20) mg/dL Calcium 8.2 L (8.4-10.2) mg/dL Total Protein 5.4 L (6.3-8.2) g/dL Albumin 3.0 L (3.5-5.0) g/dL Crossmatch See Detail 01/22/21 01/23/21 Range/Units 08:35 07:26 WBC 10.7 H (3.8-10.6) k/uL RBC 4.04 L 3.76 L (4.30-5.90) m/uL Hgb 12.6 L (13.0-17.5) gm/dL Hct 36.4 L (39.0-53.0) % RDW 15.6 H (11.5-15.5) % Plt Count 146 L 139 L (150-450) k/uL Chloride (98-107) mmol/L Carbon Dioxide (22-30) mmol/L BUN (9-20) mg/dL Calcium (8.4-10.2) mg/dL Total Protein (6.3-8.2) g/dL Albumin (3.5-5.0) g/dL Crossmatch Assessment and Plan Assessment: Left upper lobe mass status post left upper lobectomy and decortication of left lower lobe due to adhesions with lysis COPD Depression GERD Atelectasis Left-sided pleural effusion Plan: Continue bronchodilators Deep breathing exercise Incentive spirometry Pain control DVT prophylaxis Increase activity as tolerated
[2021-01-23] MEDS: IPRATROPIUM-ALBUTEROL 3 ML NEB IH SCH ×4 (08:44→20:46)
[2021-01-23 08:48] LABS: African American GFR (CKD) >90 (>60 ml/min/1.73 sqM); Anion Gap 6 mmol/L; Blood Urea Nitrogen 26 mg/dL (9-20); Calcium 8.8 mg/dL (8.4-10.2); Carbon Dioxide 24 mmol/L (22-30); Chloride 107 mmol/L (98-107); Glucose 133 mg/dL (74-99); Non-African American GFR(CKD) 89 (>60 ml/min/1.73 sqM); Potassium 4.1 mmol/L (3.5-5.1); Sodium 137 mmol/L (137-145)
[2021-01-23] MEDS: ESCITALOPRAM 10 MG TAB PO SCH (09:45)
[2021-01-23] MEDS: HEPARIN SODIUM,PORCINE/PF 5,000 UNIT/0.5 ML SYRINGE SQ SCH ×3 (09:45→23:05)
[2021-01-23] MEDS: TAMSULOSIN 0.4 MG CAP.ER.24H PO SCH (09:45)
[2021-01-23] MEDS: NICOTINE 21MG/24HR PATCH TRANSDERM SCH (09:45)
[2021-01-23] MEDS: diazePAM 5 MG TAB PO SCH (20:14)
[2021-01-24] MEDS: KETOROLAC 15 MG/ML 1 ML VIAL IVP PRN (01:34)
[2021-01-24] MEDS: HYDROcodone/APAP 10-325MG 1 EACH TAB PO PRN ×4 (01:34→21:15)
[2021-01-24] MEDS: PANTOPRAZOLE 40 MG TABLET PO SCH (06:27)
--- NOTE | 2021-01-24 07:12 | XR ---
EXAMINATION TYPE: XR chest 1V portable DATE OF EXAM: 01/24/2021 CLINICAL HISTORY: Difficulty breathing progress study. Postlobectomy. TECHNIQUE: Single AP portable upright view of the chest is obtained. COMPARISON: Chest x-ray from one day earlier and older studies. FINDINGS: Persistent left apical chest tube with extensive adjacent subcutaneous emphysema. No visua lized pneumothorax. Background chronic emphysematous and pulmonary fibrotic change without new suspic ious focal airspace opacity. Cardiac silhouette size is stable and upper limits of normal with ectati c thoracic aorta. Punctate densities lower esophageal level of uncertain etiology remain present. IMPRESSION: Persistent left apical chest tube without visualized pneumothorax. Extensive adjacent sub cutaneous emphysema redemonstrated. Background chronic emphysematous and pulmonary fibrotic changes w ithout new acute infiltrate. No significant change from one day earlier.
--- NOTE | 2021-01-24 07:15 | PN ---
PROGRESS NOTE 65-year-old white male with left upper lobe mass status post left upper lobectomy and decortication left lower lobe due to adhesions with lysis, COPD, depression, GERD, atelectasis, left-sided pleural effusion. Hemodynamics stable. Standing up in his bed in his bedroom. Left-sided chest tubes. He has had sanguinous fluid with air leaks. White count 10,700. Feeling better today. No new infiltrate. Cardiovascular S1-S2. Lungs: Rales and rhonchi. Hematology: Negative Homans. Psych: Fair mood and affect. Hemoglobin is 12.6. Continue bronchodilators. Pain control. Home medicines restarted. Status post lung mass removal for cancer. PROGNOSIS: Guarded. Follow up in next 24 to 48 hours. MMODL / IJN: [id number] /
[2021-01-24] MEDS: IPRATROPIUM-ALBUTEROL 3 ML NEB IH SCH ×4 (07:33→20:05)
[2021-01-24] MEDS: HEPARIN SODIUM,PORCINE/PF 5,000 UNIT/0.5 ML SYRINGE SQ SCH ×3 (08:21→22:58)
[2021-01-24] MEDS: ESCITALOPRAM 10 MG TAB PO SCH (08:21)
[2021-01-24] MEDS: TAMSULOSIN 0.4 MG CAP.ER.24H PO SCH (08:21)
[2021-01-24] MEDS: NICOTINE 21MG/24HR PATCH TRANSDERM SCH (08:22)
[2021-01-24 09:16] LABS: HCT 32.9 % (39.0-53.0); HGB 11.4 gm/dL (13.0-17.5); MCH 33.8 pg (25.0-35.0); MCHC 34.7 g/dL (31.0-37.0); MCV 97.5 fL (80.0-100.0); Mean Platelet Volume 7.9; Platelet Count 167 k/uL (150-450); RBC 3.38 m/uL (4.30-5.90); RDW 15.2 % (11.5-15.5); WBC 9.3 k/uL (3.8-10.6)
--- NOTE | 2021-01-24 09:16 | P.PN ---
Subjective Progress Note Date: 01/24/21 Principal diagnosis: Carcinoma left upper lobe lung. Previous medical history of current tobacco dependence, hypertension, prostate cancer, DVT, arthritis, ASD closure, and family history of CAD and cancer POD #3 robotic-assisted left thoracoscopy with lysis of adhesions, conversion to left thoracotomy with left upper lobectomy and mediastinal lymph node dissection, decortication of the left lower lobe, cryoablation of left intercostal nerves III, 4, 5, 6, and 7 The patient was seen and examined this morning sitting up in a recliner in no acute distress on the cardiac stepdown unit eating breakfast. He denies shortness of breath, does complain of postsurgical left upper chest pain which is mostly controlled with current medication regimen. Remains in sinus rhythm, hemodynamically stable. Left pleural chest tube remains to continuous wall suction with intermittent air leak present, output 120 mL serosanguineous drainage overnight, 250 mL last 24 hours. Oxygenating well on room air, able to achieve 1000 mL on his incentive spirometry. Chest x-ray reviewed, subcutaneous emphysema present on x-ray but not felt with palpation. No other new concerns. Objective - Vital Signs Vital signs: Vital Signs Temp 98.2 F 01/24/21 08:00 Pulse 94 01/24/21 08:00 Resp 20 01/24/21 08:00 BP 100/65 01/24/21 08:00 Pulse Ox 92 L 01/24/21 08:00 Intake & Output 01/23/21 01/24/21 01/24/21 18:59 06:59 18:59 Intake Total 420 180 Output Total 1 572 Balance 419 -572 180 Weight 87.3 kg Intake: Oral 420 180 Output: Chest Tube Drainage 120 Chest Tube Left Lateral 120 Chest Urine 450 Stool 1 2 Other: Voiding Method Urinal Urinal Urinal # Voids 1 ABP, PAP, CO, CI - Last Documented Arterial Blood Pressure 102/92 - Exam CONSTITUTIONAL: Appears comfortable, cooperative, no acute distress RESPIRATORY: Lungs sounds diminished bilaterally. Respirations even, nonlabored. Currently on room air with oxygen saturation 92%. Able to achieve 1000 mL on incentive spirometry. Strong productive cough. CARDIOVASCULAR: S1, S2 present. Regular rate and rhythm, sinus rhythm on tele metry. Palpable peripheral pulses bilaterally. No edema present. No calf pain or tenderness noted. SCDs present. GASTROINTESTINAL: Abdomen soft, nontender, nondistended. Active bowel sounds present 4 quadrants. Tolerating diet. GENITOURINARY: Continues to void clear yellow urine INTEGUMENTARY: Skin is warm and dry with evidence of good perfusion. Thoracic incision well approximated and covered with dry intact dressing. NEUROLOGIC: Cranial nerves II through XII intact MUSKULOSKELETAL: Able to move all extremities, strength equal bilaterally PSYCHIATRIC: Alert and oriented to person place and time, appropriate affect, intact judgment and insight INVASIVE LINES AND TUBES: Left pleural chest tube present and connected to wall suction, intermittent air leak present, 120 mL serosanguineous drainage overnight, 250 mL in the last 24 hours - Allied health notes Allied health notes reviewed: nursing - Labs CBC & Chem 7: 01/23/21 07:26 01/23/21 07:26 - Imaging and Cardiology Chest x-ray: report reviewed, image reviewed Assessment and Plan Assessment: 1. Carcinoma left upper lobe lung, status post robotic-assisted left thoracoscopy with lysis of adhesions, conversion to left thoracotomy with left upper lobectomy and mediastinal lymph node dissection, decortication of the left lower lobe, cryoablation of left intercostal nerves III, 4, 5, 6, and 7 2. Current tobacco dependence 3. History of hypertension 4. History of prostate cancer 5. History of DVT 6. Arthritis 7. ASD closure 8. Family history of CAD and cancer Plan: 1. Will place pleural chest tube to waterseal, monitor for air leak resolution 2. Encourage incentive spirometry use 10 times every hour while awake. Bronchodilators per pulmonology 3. Increase activity, ambulate as tolerated. 4. Will monitor daily labs and x-rays 5. Pain control with current medication regimen 6. GI/DVT prophylaxis 7. Smoking cessation counseling offered. Continue nicotine patch 8. Encourage oral intake. 9. Continue Flomax 10. More recommendations to follow Time with Patient: Greater than 30
[2021-01-24 09:34] LABS: African American GFR (CKD) >90 (>60 ml/min/1.73 sqM); Anion Gap 6 mmol/L; Blood Urea Nitrogen 28 mg/dL (9-20); Calcium 8.8 mg/dL (8.4-10.2); Carbon Dioxide 24 mmol/L (22-30); Chloride 107 mmol/L (98-107); Glucose 102 mg/dL (74-99); Non-African American GFR(CKD) 83 (>60 ml/min/1.73 sqM); Potassium 4.1 mmol/L (3.5-5.1); Sodium 137 mmol/L (137-145)
--- NOTE | 2021-01-24 09:38 | P.PN ---
Subjective Progress Note Date: 01/24/21 Principal diagnosis: Left upper lobe mass status post left upper lobectomy and decortication of left lower lobe due to adhesions with lysis COPD Depression GERD Atelectasis Left-sided pleural effusion 01/24/2021 patient seen eval examined, sitting upright in chair breathing comfortably off of supplemental oxygen doing incentive spirometry about in between 500 mL to a liter, suction has been removed, 1900 mL of serous sanguinous output obtained from the right-sided chest tube is still have yearly leak, patient is in better spirits, denies any chest pain breathing comfortably 01/23/2021, patient seen and evaluated examined during the rounds labs reviewed medications reviewed care plan discussed, patient sitting on upright in the chair, some pain on deep breathing is present less cough congestion, hemodynamic status stable, left-sided chest tube, around 660 mL of sanguinous fluid with air leak, labs from today reviewed white cell count is 10,700 hemoglobin is trending down but relatively stable 12.6, chemistry from yesterday reviewed, patient overall feeling better today in better spirits, chest x-ray from today reviewed no significant pneumothorax seen stable left-sided apical chest tube with extensive subcu emphysema no new infiltrate identified Patient is a pleasant 65-year-old male who was admitted into the hospital on January 21 for elective left upper lobe resection of mass as well as the lymph node dissection by Dr. Diaz, patient underwent left thoracotomy with lysis radiation and left upper lobe resection with lymph node dissection and dec ortication of left lower lobe, with cryoablation of left intercostal now off 3-7 under general anesthesia, patient lost almost 2 L of blood, patient has a left- sided chest tube with air leak with sanguinous discharge in the pleural VAC final path report however is pending, patient was diagnosed with left upper lobe mass recently also has significant history of depression COPD smoking hypertension hypertensive cardiovascular disease and GERD Objective - Vital Signs Vital signs: Vital Signs Temp 98.2 F 01/24/21 08:00 Pulse 94 01/24/21 08:00 Resp 20 01/24/21 08:00 BP 100/65 01/24/21 08:00 Pulse Ox 92 L 01/24/21 08:00 Intake & Output 01/23/21 01/24/21 01/24/21 18:59 06:59 18:59 Intake Total 420 180 Output Total 1 572 Balance 419 -572 180 Weight 87.3 kg Intake: Oral 420 180 Output: Chest Tube Drainage 120 Chest Tube Left Lateral 120 Chest Urine 450 Stool 1 2 Other: Voiding Method Urinal Urinal Urinal # Voids 1 ABP, PAP, CO, CI - Last Documented Arterial Blood Pressure 102/92 - Exam - Constitutional General appearance: average body habitus, cooperative, disheveled, mild distress - EENT Eyes: PERRLA Ears: bilateral: normal - Neck Neck: normal ROM Carotids: bilateral: upstroke normal Thyroid: bilateral: normal size - Respiratory Respiratory: bilateral: diminished - Cardiovascular Rhythm: regular Heart sounds: normal: S1, S2 - Gastrointestinal General gastrointestinal: normal bowel sounds - Integumentary Integumentary: normal - Neurologic Neurologic: CNII-XII intact - Musculoskeletal Musculoskeletal: gait normal, generalized weakness, strength equal bilaterally - Psychiatric Psychiatric: A&O x's 3, appropriate affect, intact judgment & insight - Labs CBC & Chem 7: 01/24/21 08:20 01/24/21 08:20 Labs: Abnormal Lab Results - Last 24 Hours (Table) 01/24/21 01/24/21 Range/Units 08:20 08:20 RBC 3.38 L (4.30-5.90) m/uL Hgb 11.4 L (13.0-17.5) gm/dL Hct 32.9 L (39.0-53.0) % BUN 28 H (9-20) mg/dL Glucose 102 H (74-99) mg/dL Assessment and Plan Assessment: Left upper lobe mass status post left upper lobectomy and decortication of left lower lobe due to adhesions with lysis COPD Depression GERD Atelectasis Left-sided pleural effusion Plan: Continue bronchodilators Deep breathing exercise Incentive spirometry Pain control DVT prophylaxis Increase activity as tolerated Time with Patient: Greater than 30
--- NOTE | 2021-01-24 19:12 | PN ---
PROGRESS NOTE This patient is a 65-year-old white male who is status post left upper lobe neoplasm lobectomy. He has a chest tube in. He says he is feeling stronger every day, breathing a little bit better. Remains on nicotine patches, Protonix, Flomax, DuoNeb, Valium, Lexapro, heparin subcutaneously. Labs today show hemoglobin 11.4, white count 9.3, down from 10.7. BUN and creatinine are improved at 28 and 0.97. Chest x-ray today shows persistent left apical chest tube without pneumothorax, extensive subcutaneous emphysema, background chronic emphysema and pulmonary fibrotic changes. No acute infiltrate. No significant change. The patient will continue current treatments. Lungs are fairly clear. He is sitting up in bed. CARDIOVASCULAR: S1, S2. GI soft. Hematology: Negative Homans. He is 94% on room air. Temperature 97.9, blood pressure 119/63. As soon as he takes out chest tube, possibly can go home in next few days. MMODL / IJN: [id number] /
[2021-01-24] MEDS: diazePAM 5 MG TAB PO SCH (19:45)
[2021-01-25] MEDS: HYDROcodone/APAP 10-325MG 1 EACH TAB PO PRN ×5 (03:25→20:11)
[2021-01-25] MEDS: PANTOPRAZOLE 40 MG TABLET PO SCH (06:26)
--- NOTE | 2021-01-25 07:03 | XR ---
EXAMINATION TYPE: XR chest 2V DATE OF EXAM: 01/25/2021 COMPARISON: 01/24/2021 HISTORY: Post lobectomy. TECHNIQUE: Frontal and lateral views of the chest are obtained. FINDINGS: Left-sided chest tube in place. Extensive subcutaneous emphysema redemonstrated. Sizable pneumothorax is not identified at this time. Heart size is stable. Mediastinal structures are stable and grossly unremarkable. No evidence for hilar prominence. Degenerative changes dorsal spine. IMPRESSION: 1. Left-sided chest tube in place. Extensive subcutaneous emphysema redemonstrated. Sizable pneumotho rax is not identified at this time.
[2021-01-25] MEDS: IPRATROPIUM-ALBUTEROL 3 ML NEB IH SCH ×4 (07:49→19:30)
[2021-01-25] MEDS ORDERED: bisacodyL 10 MG SUPP RECTAL STA (08:05)
[2021-01-25] MEDS: NICOTINE 21MG/24HR PATCH TRANSDERM SCH (08:07)
[2021-01-25] MEDS: HEPARIN SODIUM,PORCINE/PF 5,000 UNIT/0.5 ML SYRINGE SQ SCH ×3 (08:08→23:32)
[2021-01-25] MEDS: TAMSULOSIN 0.4 MG CAP.ER.24H PO SCH (08:09)
[2021-01-25] MEDS: ESCITALOPRAM 10 MG TAB PO SCH (08:09)
[2021-01-25] MEDS: SENNOSIDES-DOCUSATE SODIUM 1 EACH TAB PO PRN (08:17)
[2021-01-25 08:18] LABS: Basophils % (A) 0 %; Eosinophils # (A) 0.2 k/uL (0-0.7); Eosinophils % (A) 3 %; HCT 35.3 % (39.0-53.0); HGB 11.8 gm/dL (13.0-17.5); Lymphocytes # (A) 1.2 k/uL (1.0-4.8); Lymphocytes % (A) 16 %; MCH 32.7 pg (25.0-35.0); MCHC 33.4 g/dL (31.0-37.0); MCV 98.1 fL (80.0-100.0); Mean Platelet Volume 8.1; Monocytes # (A) 0.7 k/uL (0-1.0); Monocytes % (A) 8 %; Neutrophils # (A) 5.5 k/uL (1.3-7.7); Neutrophils % (A) 70 %; Platelet Count 218 k/uL (150-450); WBC 7.8 k/uL (3.8-10.6)
[2021-01-25 08:44] LABS: ALT 27 U/L (4-49); AST 48 U/L (17-59); African American GFR (CKD) >90 (>60 ml/min/1.73 sqM); Alkaline Phosphatase 68 U/L (38-126); Anion Gap 5 mmol/L; Blood Urea Nitrogen 24 mg/dL (9-20); Calcium 8.8 mg/dL (8.4-10.2); Carbon Dioxide 25 mmol/L (22-30); Chloride 104 mmol/L (98-107); Glucose 89 mg/dL (74-99); Non-African American GFR(CKD) >90 (>60 ml/min/1.73 sqM); Potassium 4.6 mmol/L (3.5-5.1); Sodium 134 mmol/L (137-145); Total Bilirubin 0.7 mg/dL (0.2-1.3); Total Protein 5.6 g/dL (6.3-8.2)
--- NOTE | 2021-01-25 10:48 | P.PN ---
Subjective Progress Note Date: 01/25/21 Principal diagnosis: Carcinoma left upper lobe lung. Past medical history significant for chronic ongoing tobacco dependence, hypertension, prostate cancer, DVT, arthritis, ASD closure, and family history of CAD and cancer. POD #4 robotic-assisted left thoracoscopy with lysis of adhesions, conversion to left thoracotomy with left upper lobectomy and mediastinal lymph node dis section, decortication of the left lower lobe, cryoablation of left intercostal nerves III, 4, 5, 6, and 7. The patient was seen in follow-up today 01/25/2021 at his bedside on the cardiac stepdown unit. Currently the patient is up ambulating in his room, is awake, alert and oriented 3 and is in no acute distress. Denies any complaints of pain or shortness of breath at this time. He does report some episodes of shortness of breath with ambulating due to having to wear a mask walking in the hallway. Complaining of constipation. Left pleural chest tube remains in place to water seal, intermittent air leak is present. Draining thin serosanguineous drainage with 100 mL output in the last 8 hours and 210 mL output in the last 24 hours. Oxygen saturations are 97% on 2 L nasal cannula and he is achieving 1000 mL on his incentive spirometry with encouragement. Pathology results remain pending. This x-ray this morning completed which shows continued extensive subcutaneous emphysema and no sizable pneumothorax identified. Objective - Vital Signs Vital signs: Vital Signs Temp 97.7 F 01/25/21 08:00 Pulse 95 01/25/21 08:00 Resp 18 01/25/21 08:00 BP 103/62 01/25/21 08:00 Pulse Ox 95 01/25/21 08:00 Intake & Output 01/24/21 01/25/21 01/25/21 18:59 06:59 18:59 Intake Total 1020 240 246 Output Total 585 30 Balance 1020 -345 216 Weight 81.8 kg Intake: IV 10 0.9 10 Oral 1020 240 236 Output: Chest Tube Drainage 210 Chest Tube Left Lateral 210 Chest Drainage 30 Left Chest 30 Urine 375 Other: Voiding Method Urinal Urinal Urinal # Voids 1 ABP, PAP, CO, CI - Last Documented Arterial Blood Pressure 102/92 - Exam CONSTITUTIONAL: Up ambulating in his room on the cardiac stepdown unit, appears comfortable, cooperative, no apparent acute distress. HEENT: Neck is supple, no JVD, no lymphadenopathy. RESPIRATORY: Lungs sounds essentially clear throughout, diminished to his bilateral bases, left greater than right. Few scattered expiratory wheezes. Respirations are symmetrical and nonlabored. Currently on 2 L nasal cannula with oxygen saturations 97%. Able to achieve 1000 mL on his incentive spirometry. Strong cough. CARDIOVASCULAR: Regular rhythm and rate. S1 and S2 present, negative for S3, gallop or murmur. Palpable peripheral pulses bilaterally, no edema present. No calf pain or tenderness noted. Sequential compression devices in place to his bilateral lower extremities. Remote telemetry showing normal sinus rhythm heart rate 94 BPM. GASTROINTESTINAL: Abdomen soft, nontender, nondistended. Active bowel sounds present 4 quadrants. Tolerating diet. Passing flatus. No guarding or rigidity. GENITOURINARY: Continues to void. INTEGUMENTARY: Skin is warm and dry with no evidence of clubbing or cyanosis. Left chest thoracotomy incision with dressing clean, dry and intact. Extensive subcu emphysema present to his left neck, left back and left chest. NEUROLOGIC: Cranial nerves II through XII intact. No focal deficits. MUSKULOSKELETAL: Able to move all extremities, strength equal bilaterally. PSYCHIATRIC: Alert and oriented to person place and time, appropriate affect, intact judgment and insight. INVASIVE LINES AND TUBES: Left pleural chest tubes present and on waterseal. Intermittent air leak present. Left pleural chest tube with 100 mL of thin serosanguineous drainage overnight, 210 mL output in the last 24 hours. - Allied health notes Allied health notes reviewed: nursing - Labs CBC & Chem 7: 01/25/21 07:30 01/25/21 07:30 Labs: Abnormal Lab Results - Last 24 Hours (Table) 01/25/21 01/25/21 Range/Units 07:30 07:30 RBC 3.60 L (4.30-5.90) m/uL Hgb 11.8 L (13.0-17.5) gm/dL Hct 35.3 L (39.0-53.0) % Sodium 134 L (137-145) mmol/L BUN 24 H (9-20) mg/dL Total Protein 5.6 L (6.3-8.2) g/dL Albumin 3.0 L (3.5-5.0) g/dL - Imaging and Cardiology Chest x-ray: report reviewed, image reviewed Assessment and Plan Assessment: 1. Carcinoma left upper lobe lung, status post robotic-assisted left thoracoscopy with lysis of adhesions, conversion to left thoracotomy with left upper lobectomy and mediastinal lymph node dissection, decortication of the left lower lobe, cryoablation of left intercostal nerves III, 4, 5, 6, and 7 2. Chronic ongoing tobacco dependence 3. History of hypertension 4. History of prostate cancer 5. History of DVT 6. Arthritis 7. ASD closure 8. Family history of CAD and cancer Plan: 1. Continue left pleural chest tube to waterseal, continue to monitor for air leak resolution. 2. Encourage incentive spirometry use 10 times every hour while awake. Bronchodilators management per pulmonology. 3. Increase activity, ambulate as tolerated. 4. Will monitor daily labs and chest x-rays. 5. Pain control with current medication regimen. 6. GI/DVT prophylaxis. 7. Risk modification discussed with the patient including smoking cessation. 8. Encourage oral intake. 9. Continue Flomax. 10. More recommendations to follow based on patient's clinical course. Time with Patient: Greater than 30
--- NOTE | 2021-01-25 18:18 | P.PN ---
Subjective Progress Note Date: 01/25/21 Principal diagnosis: Left upper lobe mass status post left upper lobectomy and decortication of left lower lobe due to adhesions with lysis COPD Depression GERD Atelectasis Left-sided pleural effusion 01/25/2021, patient seen eval examined during the rounds labs reviewed med ications reviewed care plan discussed, S3 status remains stable however air leak in the chest tube has improved now, but patient is continued to have sanguinous discharge in chest U Eric 950 mL are present, patient to the chest sleep disorder breathing and sleep apnea wants to use his CPAP machine will order BiPAP in the meantime until he gets from home, chest x-ray from today reviewed stable chest tube subcutaneous emphysema seen again no pneumothorax seen 01/24/2021 patient seen eval examined, sitting upright in chair breathing comfortably off of supplemental oxygen doing incentive spirometry about in between 500 mL to a liter, suction has been removed, 1900 mL of serous sanguinous output obtained from the right-sided chest tube is still have yearly leak, patient is in better spirits, denies any chest pain breathing comfortably 01/23/2021, patient seen and evaluated examined during the rounds labs reviewed medications reviewed care plan discussed, patient sitting on upright in the chair, some pain on deep breathing is present less cough congestion, hemodynamic status stable, left-sided chest tube, around 660 mL of sanguinous fluid with air leak, labs from today reviewed white cell count is 10,700 hemoglobin is trending down but relatively stable 12.6, chemistry from yesterday reviewed, patient overall feeling better today in better spirits, chest x-ray from today reviewed no significant pneumothorax seen stable left-sided apical chest tube with extensive subcu emphysema no new infiltrate identified Patient is a pleasant 65-year-old male who was admitted into the hospital on January 21 for elective left upper lobe resection of mass as well as the lymph node dissection by Dr. Diaz, patient underwent left thoracotomy with lysis radiation and left upper lobe resection with lymph node dissection and decortication of left lower lobe, with cryoablation of left intercostal now off 3-7 under general anesthesia, patient lost almost 2 L of blood, patient has a left-sided chest tube with air leak with sanguinous discharge in the pleural VAC final path report however is pending, patient was diagnosed with left upper lobe mass recently also has significant history of depression COPD smoking hypertension hypertensive cardiovascular disease and GERD Objective - Vital Signs Vital signs: Vital Signs Temp 98.2 F 01/25/21 16:00 Pulse 103 H 01/25/21 16:00 Resp 18 01/25/21 16:00 BP 107/74 01/25/21 16:00 Pulse Ox 93 L 01/25/21 16:00 Intake & Output 01/24/21 01/25/21 01/25/21 18:59 06:59 18:59 Intake Total 1020 240 364 Output Total 585 170 Balance 1020 -345 194 Weight 81.8 kg Intake: IV 10 0.9 10 Oral 1020 240 354 Output: Chest Tube Drainage 210 100 Chest Tube Left Lateral 210 100 Chest Drainage 70 Left Chest 70 Urine 375 Other: Voiding Method Urinal Urinal Urinal # Voids 1 ABP, PAP, CO, CI - Last Documented Arterial Blood Pressure 102/92 - Exam - Constitutional General appearance: average body habitus, cooperative, disheveled, mild distress - EENT Eyes: PERRLA Ears: bilateral: normal - Neck Neck: normal ROM Carotids: bilateral: upstroke normal Thyroid: bilateral: normal size - Respiratory Respiratory: bilateral: diminished - Cardiovascular Rhythm: regular Heart sounds: normal: S1, S2 - Gastrointestinal General gastrointestinal: normal bowel sounds - Integumentary Integumentary: normal - Neurologic Neurologic: CNII-XII intact - Musculoskeletal Musculoskeletal: gait normal, generalized weakness, strength equal bilaterally - Psychiatric Psychiatric: A&O x's 3, appropriate affect, intact judgment & insight - Labs CBC & Chem 7: 01/25/21 07:30 01/25/21 07:30 Labs: Abnormal Lab Results - Last 24 Hours (Table) 01/25/21 01/25/21 Range/Units 07:30 07:30 RBC 3.60 L (4.30-5.90) m/uL Hgb 11.8 L (13.0-17.5) gm/dL Hct 35.3 L (39.0-53.0) % Sodium 134 L (137-145) mmol/L BUN 24 H (9-20) mg/dL Total Protein 5.6 L (6.3-8.2) g/dL Albumin 3.0 L (3.5-5.0) g/dL Assessment and Plan Assessment: Left upper lobe mass status post left upper lobectomy and decortication of left lower lobe due to adhesions with lysis Pneumothorax Subcutaneous emphysema Sleep disorder breathing and sleep apnea COPD Depression GERD Atelectasis Left-sided pleural effusion Plan: Arrange BiPAP IPAP of 10 and EPAP of 5 at night and when necessary during the day Continue bronchodilators Deep breathing exercise Incentive spirometry Pain control DVT prophylaxis Increase activity as tolerated Time with Patient: Greater than 30
--- NOTE | 2021-01-25 19:01 | PN ---
PROGRESS NOTE This 65-year-old white male is status post left upper lobectomy, nicotine addiction, history of prostate cancer, hypertension, DVT, arthritis, ASD closure. Temperature 97.7, pulse 95, respiratory rate 16 to 18, blood pressure 103/62. Lungs are diminished. Wheezes on the left side. Oxygen on 2 L nasal cannula 97%. Psych: Fair mood and affect. Neurologic: Alert and oriented x3. BUN is 24, creatinine 0.82, hemoglobin is 11.8, white count 7.8. ASSESSMENT: 1. Carcinoma of the left upper lung, status post robotic-assisted thoracostomy. 2. Nicotine addiction. 3. Hypertension. 4. History of prostate cancer. 5. Deep vein thrombosis. 6. Arthritis. 7. ASD closure. Water-seal chest tube. Hopefully can take the chest tube out soon. Continue Flomax, home medications. Continue to monitor chest x-ray and his breathing. Wean off oxygen as tolerated. MMODL / IJN: [id number] /
[2021-01-25] MEDS: diazePAM 5 MG TAB PO SCH (19:56)
[2021-01-26] MEDS: PANTOPRAZOLE 40 MG TABLET PO SCH (06:27)
[2021-01-26] MEDS: HYDROcodone/APAP 10-325MG 1 EACH TAB PO PRN ×3 (06:37→22:31)
[2021-01-26 07:33] LABS: HCT 32.9 % (39.0-53.0); HGB 11.2 gm/dL (13.0-17.5); MCH 33.1 pg (25.0-35.0); MCHC 33.9 g/dL (31.0-37.0); MCV 97.6 fL (80.0-100.0); Mean Platelet Volume 8.3; Platelet Count 233 k/uL (150-450); RBC 3.37 m/uL (4.30-5.90); RDW 14.2 % (11.5-15.5); WBC 8.1 k/uL (3.8-10.6)
[2021-01-26] MEDS: NICOTINE 21MG/24HR PATCH TRANSDERM SCH (07:55)
[2021-01-26] MEDS: ESCITALOPRAM 10 MG TAB PO SCH (07:55)
[2021-01-26] MEDS: TAMSULOSIN 0.4 MG CAP.ER.24H PO SCH (07:56)
[2021-01-26] MEDS: HEPARIN SODIUM,PORCINE/PF 5,000 UNIT/0.5 ML SYRINGE SQ SCH ×3 (07:56→22:30)
[2021-01-26 08:04] LABS: African American GFR (CKD) >90 (>60 ml/min/1.73 sqM); Anion Gap 7 mmol/L; Blood Urea Nitrogen 21 mg/dL (9-20); Calcium 8.9 mg/dL (8.4-10.2); Carbon Dioxide 25 mmol/L (22-30); Chloride 103 mmol/L (98-107); Glucose 105 mg/dL (74-99); Non-African American GFR(CKD) >90 (>60 ml/min/1.73 sqM); Potassium 4.5 mmol/L (3.5-5.1); Sodium 135 mmol/L (137-145)
[2021-01-26] MEDS: IPRATROPIUM-ALBUTEROL 3 ML NEB IH SCH ×4 (08:59→19:39)
--- NOTE | 2021-01-26 09:15 | XR ---
EXAMINATION TYPE: XR chest 1V portable DATE OF EXAM: 01/26/2021 Comparison: 01/25/2021 Clinical History: 65-year-old male Postoperative left upper lobectomy Findings: Left-sided place with extensive subcutaneous emphysema along the left side of the chest. Probable sma ll left pleural effusion and patchy peripheral and left basilar opacity is unchanged. Allowing for th e extensive densities, no definite pneumothorax is seen. Strandy atelectasis of the right base. Heart upper limits of normal in size. Impression: Left-sided chest tube remains in place with continuing extensive left-sided subcutaneous emphysema. P eripheral and left basilar opacities are similar. No appreciable pneumothorax.
[2021-01-26] MEDS ORDERED: NA PHOS,M-B/NA PHOS,DI-BA 133 ML ENEMA RECTAL ONE (10:25)
--- NOTE | 2021-01-26 12:03 | P.PN ---
Subjective Progress Note Date: 01/26/21 Principal diagnosis: Left upper lobe mass status post left upper lobectomy and decortication of left lower lobe due to adhesions with lysis COPD Depression GERD Atelectasis Left-sided pleural effusion 01/26/2021, patient seen eval examined during the rounds labs reviewed med ications reviewed care plan discussed, respirator status remains stable but however still get short of breath on activity and exertion, left-sided chest tube is in draining now clear sanguinous discharge and fluid, new Pleur-evac has been placed, some air leak is present, pain is better under control, patient use his BiPAP machine at night able to sleep better last night complaining of lower extremity swelling and dependent edema will keep legs up as well chest x-ray from today reviewed stable left-sided chest tube, extensive emphysema on the left side persist not significant change no pneumothorax seen some basal atelectasis reviewed patient last to continue deep breathing exercises and inc entive spirometry 01/25/2021, patient seen eval examined during the rounds labs reviewed medications reviewed care plan discussed, S3 status remains stable however air leak in the chest tube has improved now, but patient is continued to have sanguinous discharge in chest U Eric 950 mL are present, patient to the chest sleep disorder breathing and sleep apnea wants to use his CPAP machine will o rder BiPAP in the meantime until he gets from home, chest x-ray from today reviewed stable chest tube subcutaneous emphysema seen again no pneumothorax seen 01/24/2021 patient seen eval examined, sitting upright in chair breathing comfortably off of supplemental oxygen doing incentive spirometry about in between 500 mL to a liter, suction has been removed, 1900 mL of serous sanguinous output obtained from the right-sided chest tube is still have yearly leak, patient is in better spirits, denies any chest pain breathing comfortably 01/23/2021, patient seen and evaluated examined during the rounds labs reviewed medications reviewed care plan discussed, patient sitting on upright in the juan miguel r, some pain on deep breathing is present less cough congestion, hemodynamic status stable, left-sided chest tube, around 660 mL of sanguinous fluid with air leak, labs from today reviewed white cell count is 10,700 hemoglobin is trending down but relatively stable 12.6, chemistry from yesterday reviewed, patient overall feeling better today in better spirits, chest x-ray from today reviewed no significant pneumothorax seen stable left-sided apical chest tube with extensive subcu emphysema no new infiltrate identified Patient is a pleasant 65-year-old male who was admitted into the hospital on January 21 for elective left upper lobe resection of mass as well as the lymph node dissection by Dr. Diaz, patient underwent left thoracotomy with lysis radiation and left upper lobe resection with lymph node dissection and decortication of left lower lobe, with cryoablation of left intercostal now off 3-7 under general anesthesia, patient lost almost 2 L of blood, patient has a left-sided chest tube with air leak with sanguinous discharge in the pleural VAC final path report however is pending, patient was diagnosed with left upper lobe mass recently also has significant history of depression COPD smoking hypertension hypertensive cardiovascular disease and GERD Objective - Vital Signs Vital signs: Vital Signs Temp 98.4 F 01/26/21 11:10 Pulse 89 01/26/21 11:10 Resp 18 01/26/21 11:10 BP 94/64 01/26/21 11:10 Pulse Ox 96 01/26/21 11:10 Intake & Output 01/25/21 01/26/21 01/26/21 18:59 06:59 18:59 Intake Total 364 240 180 Output Total 170 468 50 Balance 194 -228 130 Weight 85.4 kg Intake: IV 10 0.9 10 Oral 354 240 180 Output: Chest Tube Drainage 100 193 Chest Tube Left Lateral 100 193 Chest Drainage 70 Left Chest 70 Urine 275 50 Other: Voiding Method Urinal Urinal Toilet Urinal # Voids 1 ABP, PAP, CO, CI - Last Documented Arterial Blood Pressure 102/92 - Exam - Constitutional General appearance: average body habitus, cooperative, disheveled, mild distress - EENT Eyes: PERRLA Ears: bilateral: normal - Neck Neck: normal ROM Carotids: bilateral: upstroke normal Thyroid: bilateral: normal size - Respiratory Respiratory: bilateral: diminished, left-sided chest tube connected with pleural VAC - Cardiovascular Rhythm: regular Heart sounds: normal: S1, S2 - Gastrointestinal General gastrointestinal: normal bowel sounds - Integumentary Integumentary: normal - Neurologic Neurologic: CNII-XII intact - Musculoskeletal Musculoskeletal: gait normal, generalized weakness, strength equal bilaterally - Psychiatric Psychiatric: A&O x's 3, appropriate affect, intact judgment & insight - Labs CBC & Chem 7: 01/26/21 07:08 01/26/21 07:08 Labs: Abnormal Lab Results - Last 24 Hours (Table) 01/26/21 01/26/21 Range/Units 07:08 07:08 RBC 3.37 L (4.30-5.90) m/uL Hgb 11.2 L (13.0-17.5) gm/dL Hct 32.9 L (39.0-53.0) % Sodium 135 L (137-145) mmol/L BUN 21 H (9-20) mg/dL Glucose 105 H (74-99) mg/dL Assessment and Plan Assessment: Pathology came back positive for necrotizing granuloma with associated fibrosis inflammation history of sites along with 6 benign hilar lymph node negative for malignancy, likely infectious etiology however no comments from pathologist seen for organism, awaiting an addendum Left upper lobe mass status post left upper lobectomy and decortication of left lower lobe due to adhesions with lysis Left-sided Pneumothorax Subcutaneous emphysema Sleep disorder breathing and sleep apnea COPD Depression GERD Atelectasis Left-sided pleural effusion Plan: Arrange BiPAP IPAP of 10 and EPAP of 5 at night and when necessary during the day Continue bronchodilators Deep breathing exercise Incentive spirometry Pain control DVT prophylaxis Increase activity as tolerated Time with Patient: Greater than 30
--- NOTE | 2021-01-26 13:45 | P.PN ---
Subjective Progress Note Date: 01/26/21 Principal diagnosis: Carcinoma left upper lobe lung. Past medical history significant for chronic ongoing tobacco dependence, hypertension, prostate cancer, DVT, arthritis, ASD closure, and family history of CAD and cancer. POD #5 robotic-assisted left thoracoscopy with lysis of adhesions, conversion to left thoracotomy with left upper lobectomy and mediastinal lymph node dis section, decortication of the left lower lobe, cryoablation of left intercostal nerves III, 4, 5, 6, and 7. The patient was seen in follow-up today 01/26/2021 at his bedside on the cardiac stepdown unit. Currently the patient is sitting up to the bedside chair, is awake, alert, oriented 3 and is in no acute distress. Denies any complaints of pain or shortness of breath at this time. the patient feels his shortness of breath is somewhat improved from yesterday with ambulating. Oxygen saturation are 89% on room air and 96% on 2 L nasal cannula. He is achieving 2135-0443 mL on his incentive spirometry. Left pleural chest tube remains in place to water seal. Intermittent air leak is present. Draining thin serosanguineous drainage at this time although if there is some milky-colored serosanguineous drainage in the collection chamber. 170 mL output in the last 8 hours and 250 mL output in the last 24 hours. Chest x-ray this morning shows no evidence of pneumothorax although continues to demonstrate extensive left-sided subcutaneous emphysema. Objective - Vital Signs Vital signs: Vital Signs Temp 98.4 F 01/26/21 11:10 Pulse 89 01/26/21 11:10 Resp 18 01/26/21 11:10 BP 94/64 01/26/21 11:10 Pulse Ox 96 01/26/21 11:10 Intake & Output 01/25/21 01/26/21 01/26/21 18:59 06:59 18:59 Intake Total 364 240 180 Output Total 170 468 50 Balance 194 -228 130 Weight 85.4 kg Intake: IV 10 0.9 10 Oral 354 240 180 Output: Chest Tube Drainage 100 193 Chest Tube Left Lateral 100 193 Chest Drainage 70 Left Chest 70 Urine 275 50 Other: Voiding Method Urinal Urinal Toilet Urinal # Voids 1 ABP, PAP, CO, CI - Last Documented Arterial Blood Pressure 102/92 - Exam CONSTITUTIONAL:Sitting up to the bedside chair on the cardiac stepdown unit, appears comfortable, cooperative, no apparent acute distress. HEENT: Neck is supple, no JVD, no lymphadenopathy. RESPIRATORY: Lungs sounds essentially clear throughout, diminished to his bilateral bases, left greater than right. Few scattered expiratory wheezes. Respirations are symmetrical and nonlabored. Currently on 2 L nasal cannula with oxygen saturations 96%. Able to achieve 1255-2504 mL on his incentive spirometry. Strong cough. CARDIOVASCULAR: Regular rhythm and rate. S1 and S2 present, negative for S3, gallop or murmur. Palpable peripheral pulses bilaterally, trace edema to his bilateral lower extremities. No calf pain or tenderness noted. Sequential compression devices in place to his bilateral lower extremities. GASTROINTESTINAL: Abdomen soft, nontender, nondistended. Hypoactive bowel sounds present 4 quadrants. Tolerating diet. Passing flatus. No guarding or rigidity. GENITOURINARY: Continues to void. INTEGUMENTARY: Skin is warm and dry with no evidence of clubbing or cyanosis. Left chest thoracotomy incision with dressing clean, dry and intact. Extensive subcutaneous emphysema present to his left neck, left back and left chest. NEUROLOGIC: Cranial nerves II through XII intact. No focal deficits. MUSKULOSKELETAL: Able to move all extremities, strength equal bilaterally. PSYCHIATRIC: Alert and oriented to person place and time, appropriate affect, intact judgment and insight. INVASIVE LINES AND TUBES: Left pleural chest tubes present and on waterseal. Intermittent air leak present. Left pleural chest tube with 170 mL of thin serosanguineous drainage overnight, 250 mL output in the last 24 hours. - Allied health notes Allied health notes reviewed: nursing - Labs CBC & Chem 7: 01/26/21 07:08 01/26/21 07:08 Labs: Abnormal Lab Results - Last 24 Hours (Table) 01/26/21 01/26/21 Range/Units 07:08 07:08 RBC 3.37 L (4.30-5.90) m/uL Hgb 11.2 L (13.0-17.5) gm/dL Hct 32.9 L (39.0-53.0) % Sodium 135 L (137-145) mmol/L BUN 21 H (9-20) mg/dL Glucose 105 H (74-99) mg/dL - Imaging and Cardiology Chest x-ray: report reviewed, image reviewed Assessment and Plan Assessment: 1. Left upper lobe lung mass, status post robotic-assisted left thoracoscopy with lysis of adhesions, conversion to left thoracotomy with left upper lobectomy and mediastinal lymph node dissection, decortication of the left lower lobe, cryoablation of left intercostal nerves III, 4, 5, 6, and 7 2. Chronic ongoing tobacco dependence 3. History of hypertension 4. History of prostate cancer 5. History of DVT 6. Arthritis 7. ASD closure 8. Family history of CAD and cancer Plan: 1. Continue left pleural chest tube to waterseal, continue to monitor for air leak resolution. Chest tube with some milky colored serosanguineous drainage possible chylothorax, the patient will be placed on a no fat diet. 2. Encourage incentive spirometry use 10 times every hour while awake. Bronchodilators management per pulmonology. 3. Increase activity, ambulate as tolerated. 4. Will monitor daily labs and chest x-rays. 5. Pain control with current medication regimen. 6. GI/DVT prophylaxis. 7. Risk modification discussed with the patient including smoking cessation. 8. Encourage oral intake. 9. Continue Flomax. 10. Pathology results were reviewed with the patient by Dr. Urbano Wang which showed necrotizing granuloma with associated fibrosis, inflammation and histiocytes. Background respiratory bronchiolitis. Negative for malignancy. 6 benign hilar lymph nodes. 11. More recommendations to follow based on patient's clinical course. Time with Patient: Greater than 30
[2021-01-26 14:15] VITALS: BMI 28.6
[2021-01-26] MEDS: diazePAM 5 MG TAB PO SCH (19:33)
[2021-01-26] MEDS: SENNOSIDES-DOCUSATE SODIUM 1 EACH TAB PO PRN (22:30)
[2021-01-27] MEDS: PANTOPRAZOLE 40 MG TABLET PO SCH (06:16)
[2021-01-27] MEDS: HYDROcodone/APAP 10-325MG 1 EACH TAB PO PRN ×3 (06:44→23:07)
[2021-01-27] MEDS: IPRATROPIUM-ALBUTEROL 3 ML NEB IH SCH ×4 (07:40→19:28)
[2021-01-27 07:43] LABS: HCT 35.7 % (39.0-53.0); HGB 11.7 gm/dL (13.0-17.5); MCH 32.7 pg (25.0-35.0); MCHC 32.8 g/dL (31.0-37.0); MCV 99.6 fL (80.0-100.0); Mean Platelet Volume 8.2; Platelet Count 283 k/uL (150-450); RBC 3.58 m/uL (4.30-5.90); RDW 14.1 % (11.5-15.5); WBC 8.3 k/uL (3.8-10.6)
[2021-01-27 08:00] LABS: African American GFR (CKD) >90 (>60 ml/min/1.73 sqM); Anion Gap 6 mmol/L; Blood Urea Nitrogen 19 mg/dL (9-20); Calcium 9.1 mg/dL (8.4-10.2); Carbon Dioxide 27 mmol/L (22-30); Chloride 103 mmol/L (98-107); Glucose 116 mg/dL (74-99); Non-African American GFR(CKD) >90 (>60 ml/min/1.73 sqM); Potassium 4.4 mmol/L (3.5-5.1); Sodium 136 mmol/L (137-145)
--- NOTE | 2021-01-27 08:00 | XR ---
EXAMINATION TYPE: XR chest 1V portable DATE OF EXAM: 01/27/2021 COMPARISON: 01/26/2021 INDICATION: Pneumothorax, status post left upper lobectomy TECHNIQUE: Single frontal view of the chest is obtained. FINDINGS: The heart size is normal. The pulmonary vasculature is normal. The lungs are clear. There is a small left apical pneumothorax. This measures 1.9 cm from the right apical region to the pleural line which is increased from comparison. Extensive subcutaneous emphysema remains present on the left. Left-sided chest tube remains present. IMPRESSION: 1. Enlarging left pneumothorax post lobectomy. 2. Small left pleural effusion may be present
[2021-01-27] MEDS: ESCITALOPRAM 10 MG TAB PO SCH (08:47)
[2021-01-27] MEDS: HEPARIN SODIUM,PORCINE/PF 5,000 UNIT/0.5 ML SYRINGE SQ SCH ×3 (08:47→23:07)
[2021-01-27] MEDS: SENNOSIDES-DOCUSATE SODIUM 1 EACH TAB PO SCH (08:48)
[2021-01-27] MEDS: TAMSULOSIN 0.4 MG CAP.ER.24H PO SCH (08:48)
[2021-01-27] MEDS: NICOTINE 21MG/24HR PATCH TRANSDERM SCH (08:48)
--- NOTE | 2021-01-27 09:15 | P.PN ---
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 Previous medical history of current tobacco dependence, hypertension, prostate cancer, DVT, arthritis, ASD closure, and family history of CAD and cancer POD #6 robotic-assisted left thoracoscopy with lysis of adhesions, conversion to left thoracotomy with left upper lobectomy and mediastinal lymph node dissection, decortication of the left lower lobe, cryoablation of left intercostal nerves III, 4, 5, 6, and 7 The patient was seen and examined this morning sitting up in a recliner in no acute distress on the cardiac stepdown unit eating breakfast. He denies shortness of breath, does complain of postsurgical left upper chest pain which is mostly controlled with current medication regimen. Remains in sinus rhythm, hemodynamically stable. Left pleural chest tube remains to waterseal with intermittent air leak present mostly with coughing, output 60 mL milky white drainage overnight, 250 mL last 24 hours. Oxygenating well on room air, able to achieve 1250 mL on his incentive spirometry. Chest x-ray reviewed. No other new concerns. Objective - Vital Signs Vital signs: Vital Signs Temp 97.7 F 01/27/21 03:28 Pulse 99 01/27/21 07:54 Resp 16 01/27/21 06:14 BP 136/65 01/27/21 03:28 Pulse Ox 92 L 01/27/21 06:14 Intake & Output 01/26/21 01/27/21 01/27/21 18:59 06:59 18:59 Intake Total 600 480 118 Output Total 480 1330 Balance 120 -850 118 Weight 85.4 kg 83.6 kg Intake: Oral 600 480 118 Output: Chest Tube Drainage 80 80 Chest Tube Left Lateral 80 80 Chest Urine 400 1250 Other: Voiding Method Toilet Toilet Urinal Urinal # Voids 2 1 ABP, PAP, CO, CI - Last Documented Arterial Blood Pressure 102/92 - Exam CONSTITUTIONAL: Appears comfortable, cooperative, no acute distress RESPIRATORY: Lungs sounds diminished bilaterally. Respirations even, nonlabored. Currently on room air with oxygen saturation 92%. Able to achieve 1250 mL on incentive spirometry. Strong productive cough. CARDIOVASCULAR: S1, S2 present. Regular rate and rhythm, sinus rhythm on telemetry. Palpable peripheral pulses bilaterally. No edema present. No calf pain or tenderness noted. SCDs present. GASTROINTESTINAL: Abdomen soft, nontender, nondistended. Active bowel sounds present 4 quadrants. Tolerating diet. Positive small bowel movement yesterday after enema given GENITOURINARY: Continues to void clear yellow urine INTEGUMENTARY: Skin is warm and dry with evidence of good perfusion. Thoracic incision well approximated without redness or drainage NEUROLOGIC: Cranial nerves II through XII intact MUSKULOSKELETAL: Able to move all extremities, strength equal bilaterally PSYCHIATRIC: Alert and oriented to person place and time, appropriate affect, intact judgment and insight INVASIVE LINES AND TUBES: Left pleural chest tube present to waterseal, intermittent air leak present, 60 mL milky white drainage overnight, 250 mL in the last 24 hours - Allied health notes Allied health notes reviewed: nursing - Labs CBC & Chem 7: 01/27/21 07:15 01/27/21 07:15 Labs: Abnormal Lab Results - Last 24 Hours (Table) 01/27/21 01/27/21 Range/Units 07:15 07:15 RBC 3.58 L (4.30-5.90) m/uL Hgb 11.7 L (13.0-17.5) gm/dL Hct 35.7 L (39.0-53.0) % Sodium 136 L (137-145) mmol/L Glucose 116 H (74-99) mg/dL - Imaging and Cardiology Chest x-ray: report reviewed, image reviewed Assessment and Plan Assessment: 1. Left upper lobe lung mass, status post robotic-assisted left thoracoscopy with lysis of adhesions, conversion to left thoracotomy with left upper lobectomy and mediastinal lymph node dissection, decortication of the left lower lobe, cryoablation of left intercostal nerves III, 4, 5, 6, and 7, pathology demonstrates necrotizing granuloma with associated fibrosis, inflammation, and histiocytes with no evidence of malignancy in the left upper lobe or lymph nodes consistent with infectious etiology 2. Current tobacco dependence 3. History of hypertension 4. History of prostate cancer 5. History of DVT 6. Arthritis 7. ASD closure 8. Family history of CAD and cancer Plan: 1. Continue pleural chest tube to waterseal, monitor for air leak resolution. 2. Encourage incentive spirometry use 10 times every hour while awake. Bronchodilators per pulmonology 3. Increase activity, ambulate as tolerated. 4. Will monitor daily labs and x-rays 5. Pain control with current medication regimen 6. GI/DVT prophylaxis 7. Smoking cessation counseling offered. Continue nicotine patch 8. Encourage oral intake. No fat diet 9. Continue Flomax 10. More recommendations to follow Time with Patient: Greater than 30
--- NOTE | 2021-01-27 15:38 | P.PN ---
Subjective Progress Note Date: 01/27/21 Principal diagnosis: Left upper lobe mass status post left upper lobectomy and decortication of left lower lobe due to adhesions with lysis COPD Depression GERD Atelectasis Left-sided pleural effusion 01/27/2021, patient seen eval examined during the rounds labs reviewed med ications reviewed care plan discussed chest x-ray reviewed as well shortness of breath stable, dressing has been bed soaking intermittently, pleural drainage however is more concentrated, patient informed and discussed with path reports and biopsy results, chest x-ray remains stable, patient is still have intermittent air leak, 01/26/2021, patient seen eval examined during the rounds labs reviewed medications reviewed care plan discussed, respirator status remains stable but however still get short of breath on activity and exertion, left-sided chest tube is in draining now clear sanguinous discharge and fluid, new Pleur-evac has been placed, some air leak is present, pain is better under control, patient use his BiPAP machine at night able to sleep better last night complaining of lower extremity swelling and dependent edema will keep legs up as well chest x-ray from today reviewed stable left-sided chest tube, extensive emphysema on the left side persist not significant change no pneumothorax seen some basal atelectasis reviewed patient last to continue deep breathing exercises and incentive spirometry 01/25/2021, patient seen eval examined during the rounds labs reviewed medic ations reviewed care plan discussed, S3 status remains stable however air leak in the chest tube has improved now, but patient is continued to have sanguinous discharge in chest U Eric 950 mL are present, patient to the chest sleep disorder breathing and sleep apnea wants to use his CPAP machine will order BiPAP in the meantime until he gets from home, chest x-ray from today reviewed stable chest tube subcutaneous emphysema seen again no pneumothorax seen 01/24/2021 patient seen eval examined, sitting upright in chair breathing comfortably off of supplemental oxygen doing incentive spirometry about in between 500 mL to a liter, suction has been removed, 1900 mL of serous sanguinous output obtained from the right-sided chest tube is still have yearly leak, patient is in better spirits, denies any chest pain breathing comfortably 01/23/2021, patient seen and evaluated examined during the rounds labs reviewed medications reviewed care plan discussed, patient sitting on upright in the chair, some pain on deep breathing is present less cough congestion, hemodynamic status stable, left-sided chest tube, around 660 mL of sanguinous fluid with air leak, labs from today reviewed white cell count is 10,700 hemoglobin is trending down but relatively stable 12.6, chemistry from yesterday reviewed, patient overall feeling better today in better spirits, chest x-ray from today reviewed no significant pneumothorax seen stable left-sided apical chest tube with extensive subcu emphysema no new infiltrate identified Patient is a pleasant 65-year-old male who was admitted into the hospital on January 21 for elective left upper lobe resection of mass as well as the lymph node dissection by Dr. Diaz, patient underwent left thoracotomy with lysis radiation and left upper lobe resection with lymph node dissection and decortication of left lower lobe, with cryoablation of left intercostal now off 3-7 under general anesthesia, patient lost almost 2 L of blood, patient has a left-sided chest tube with air leak with sanguinous discharge in the pleural VAC final path report however is pending, patient was diagnosed with left upper lobe mass recently also has significant history of depression COPD smoking hypertension hypertensive cardiovascular disease and GERD Objective - Vital Signs Vital signs: Vital Signs Temp 98.1 F 01/27/21 11:47 Pulse 89 01/27/21 11:47 Resp 18 01/27/21 11:47 BP 79/58 01/27/21 11:47 Pulse Ox 91 L 01/27/21 11:47 Intake & Output 01/26/21 01/27/21 01/27/21 18:59 06:59 18:59 Intake Total 600 480 118 Output Total 480 1330 20 Balance 120 -850 98 Weight 85.4 kg 83.6 kg Intake: Oral 600 480 118 Output: Chest Tube Drainage 80 80 20 Chest Tube Left Lateral 80 80 20 Chest Urine 400 1250 Other: Voiding Method Toilet Toilet Toilet Urinal Urinal Urinal # Voids 2 1 ABP, PAP, CO, CI - Last Documented Arterial Blood Pressure 102/92 - Exam - Constitutional General appearance: average body habitus, cooperative, disheveled, mild distress - EENT Eyes: PERRLA Ears: bilateral: normal - Neck Neck: normal ROM Carotids: bilateral: upstroke normal Thyroid: bilateral: normal size - Respiratory Respiratory: bilateral: diminished, left-sided chest tube connected with pleural VAC - Cardiovascular Rhythm: regular Heart sounds: normal: S1, S2 - Gastrointestinal General gastrointestinal: normal bowel sounds - Integumentary Integumentary: normal - Neurologic Neurologic: CNII-XII intact - Musculoskeletal Musculoskeletal: gait normal, generalized weakness, strength equal bilaterally - Psychiatric Psychiatric: A&O x's 3, appropriate affect, intact judgment & insight - Labs CBC & Chem 7: 01/27/21 07:15 01/27/21 07:15 Labs: Abnormal Lab Results - Last 24 Hours (Table) 01/27/21 01/27/21 Range/Units 07:15 07:15 RBC 3.58 L (4.30-5.90) m/uL Hgb 11.7 L (13.0-17.5) gm/dL Hct 35.7 L (39.0-53.0) % Sodium 136 L (137-145) mmol/L Glucose 116 H (74-99) mg/dL Assessment and Plan Assessment: Pathology came back positive for necrotizing granuloma with associated fibrosis inflammation history of sites along with 6 benign hilar lymph node negative for malignancy, likely infectious etiology however no comments from pathologist seen for organism, awaiting an addendum Left upper lobe mass status post left upper lobectomy and decortication of left lower lobe due to adhesions with lysis Left-sided Pneumothorax Subcutaneous emphysema Sleep disorder breathing and sleep apnea COPD Depression GERD Atelectasis Left-sided pleural effusion Plan: Arrange BiPAP IPAP of 10 and EPAP of 5 at night and when necessary during the day Continue bronchodilators Deep breathing exercise Incentive spirometry Pain control DVT prophylaxis Increase activity as tolerated Time with Patient: Greater than 30
--- NOTE | 2021-01-27 16:38 | PN ---
PROGRESS NOTE This 65-year-old white male yesterday due to chest surgery being done and is negative for cancer. His chest tube is still in place. He was getting 60 mL of milky white drainage overnight, 250 mL in the last 24 hours. Chest x-ray reviewed. Blood pressure 130s over 60s, O2 92%, pulse 99, temperature 97.7. CARDIOVASCULAR: S1, S2. Lungs clear. GI soft. He has a bandage over his left posterior flank/chest. Tender, warm, dry, intact. upper lobe lung mass, status post robotic-assisted left thoracotomy with lysis of adhesions. Coverage with a left thoracotomy, left upper lobectomy, mediastinal node resection. Nicotine addiction, COPD, hypertension, history of prostate cancer, DVT, arthritis, ASD closure. Increase his ambulation. Continue pleural chest tube to water seal. Monitor for a leak resolution. Continue spirometry. PT/OT. Pain control. fluids. Prognosis guarded. MMODL / IJN: [id number] /
[2021-01-27] MEDS: diazePAM 5 MG TAB PO SCH (20:31)
[2021-01-28] MEDS: HYDROcodone/APAP 10-325MG 1 EACH TAB PO PRN ×4 (04:38→23:52)
[2021-01-28 06:37] LABS: Basophils % (A) 0 %; Eosinophils # (A) 0.3 k/uL (0-0.7); Eosinophils % (A) 3 %; HCT 33.6 % (39.0-53.0); HGB 11.3 gm/dL (13.0-17.5); Lymphocytes # (A) 1.4 k/uL (1.0-4.8); Lymphocytes % (A) 17 %; MCH 33.2 pg (25.0-35.0); MCHC 33.7 g/dL (31.0-37.0); MCV 98.6 fL (80.0-100.0); Mean Platelet Volume 7.9; Monocytes # (A) 0.8 k/uL (0-1.0); Monocytes % (A) 11 %; Neutrophils # (A) 5.2 k/uL (1.3-7.7); Neutrophils % (A) 66 %; Platelet Count 304 k/uL (150-450); RBC 3.41 m/uL (4.30-5.90); WBC 7.9 k/uL (3.8-10.6)
[2021-01-28] MEDS: PANTOPRAZOLE 40 MG TABLET PO SCH (06:44)
[2021-01-28 07:19] LABS: ALT 26 U/L (4-49); AST 29 U/L (17-59); African American GFR (CKD) >90 (>60 ml/min/1.73 sqM); Albumin 2.7 g/dL (3.5-5.0); Alkaline Phosphatase 64 U/L (38-126); Anion Gap 6 mmol/L; Blood Urea Nitrogen 22 mg/dL (9-20); Calcium 8.8 mg/dL (8.4-10.2); Carbon Dioxide 27 mmol/L (22-30); Chloride 100 mmol/L (98-107); Glucose 93 mg/dL (74-99); Non-African American GFR(CKD) >90 (>60 ml/min/1.73 sqM); Potassium 4.5 mmol/L (3.5-5.1); Sodium 133 mmol/L (137-145); Total Bilirubin 0.4 mg/dL (0.2-1.3); Total Protein 5.2 g/dL (6.3-8.2)
[2021-01-28] MEDS: IPRATROPIUM-ALBUTEROL 3 ML NEB IH SCH ×4 (07:36→19:38)
--- NOTE | 2021-01-28 07:45 | XR ---
EXAMINATION TYPE: XR chest 2V DATE OF EXAM: 01/28/2021 COMPARISON: 01/27/2021 HISTORY: 65 year-old male post lobectomy TECHNIQUE: PA and lateral views FINDINGS: Left apical chest tube remains in place. Extensive subcutaneous emphysema persists on the left. Rede monstrated small left apical pneumothorax currently measuring 1.4 cm versus 1.9 cm, previously. Volum e loss in the left hemithorax with a some leftward cardiac and mediastinal shift which appears slight ly increased. Patchy opacity in the periphery of the left mid and lower lung persists. Suspected trac e left effusion on the lateral view. IMPRESSION: 1. Left sided chest tube in place. Small left apical pneumothorax slightly decreased currently measur ing 1.4 cm versus 1.9 cm, previously. 2. Continued subcutaneous emphysema on the left. 3. Continued small left effusion. Patchy atelectasis and/or consolidation periphery of the left mid a nd lower lung similar to slightly increased.
--- NOTE | 2021-01-28 08:07 | P.PN ---
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 Previous medical history of current tobacco dependence, hypertension, prostate cancer, DVT, arthritis, ASD closure, and family history of CAD and cancer POD #7 robotic-assisted left thoracoscopy with lysis of adhesions, conversion to left thoracotomy with left upper lobectomy and mediastinal lymph node dissection, decortication of the left lower lobe, cryoablation of left intercostal nerves III, 4, 5, 6, and 7 with subsequent left pneumothorax and extensive subcutaneous emphysema which are all expected consequences of lung surgery with open thoracotomy, not complications The patient was seen and examined this morning sitting up in a recliner in no acute distress on the cardiac stepdown unit eating breakfast. He denies shortness of breath, states postsurgical pain is controlled with current medication regimen. Remains in sinus rhythm, hemodynamically stable. Left pleural chest tube remains to waterseal with intermittent air leak present only with coughing, improved from yesterday, output 60 mL milky pink drainage overnight, 200 mL last 24 hours. Oxygenating well on room air, continues to achieve 1250 mL on his incentive spirometry. Chest x-ray reviewed. No other new concerns. Objective - Vital Signs Vital signs: Vital Signs Temp 98.1 F 01/28/21 04:00 Pulse 92 01/28/21 07:37 Resp 18 01/28/21 04:00 BP 92/59 01/28/21 04:00 Pulse Ox 95 01/28/21 04:00 Intake & Output 01/27/21 01/28/21 01/28/21 18:59 06:59 18:59 Intake Total 118 Output Total 220 310 Balance -102 -310 Weight 83.6 kg Intake: Oral 118 Output: Chest Tube Drainage 30 130 Chest Tube Left Lateral 30 130 Chest Drainage 0 Left Chest 0 Urine 190 180 Other: Voiding Method Toilet Urinal # Voids 1 ABP, PAP, CO, CI - Last Documented Arterial Blood Pressure 102/92 - Exam CONSTITUTIONAL: Appears comfortable, cooperative, no acute distress RESPIRATORY: Lungs sounds diminished in the bases bilaterally. Respirations even, nonlabored. Currently on room air with oxygen saturation 95%. Able to achieve 1250 mL on incentive spirometry. Strong productive cough. CARDIOVASCULAR: S1, S2 present. Regular rate and rhythm, sinus rhythm on telemetry. Palpable peripheral pulses bilaterally. No edema present. No calf pain or tenderness noted. SCDs present. GASTROINTESTINAL: Abdomen soft, nontender, nondistended. Active bowel sounds present 4 quadrants. Tolerating diet. Positive small bowel movement GENITOURINARY: Continues to void clear yellow urine INTEGUMENTARY: Skin is warm and dry with evidence of good perfusion. Thoracic incision well approximated without redness or drainage NEUROLOGIC: Cranial nerves II through XII intact MUSKULOSKELETAL: Able to move all extremities, strength equal bilaterally PSYCHIATRIC: Alert and oriented to person place and time, appropriate affect, intact judgment and insight INVASIVE LINES AND TUBES: Left pleural chest tube present to waterseal, intermittent air leak present present with coughing, 60 mL milky pink drainage overnight, 200 mL in the last 24 hours - Allied health notes Allied health notes reviewed: nursing - Labs CBC & Chem 7: 01/28/21 05:56 01/28/21 05:56 Labs: Abnormal Lab Results - Last 24 Hours (Table) 01/28/21 01/28/21 Range/Units 05:56 05:56 RBC 3.41 L (4.30-5.90) m/uL Hgb 11.3 L (13.0-17.5) gm/dL Hct 33.6 L (39.0-53.0) % Sodium 133 L (137-145) mmol/L BUN 22 H (9-20) mg/dL Total Protein 5.2 L (6.3-8.2) g/dL Albumin 2.7 L (3.5-5.0) g/dL - Imaging and Cardiology Chest x-ray: report reviewed, image reviewed Assessment and Plan Assessment: 1. Left upper lobe lung mass, status post robotic-assisted left thoracoscopy with lysis of adhesions, conversion to left thoracotomy with left upper lobectomy and mediastinal lymph node dissection, decortication of the left lower lobe, cryoablation of left intercostal nerves III, 4, 5, 6, and 7, pathology demonstrates necrotizing granuloma with associated fibrosis, inflammation, and histiocytes with no evidence of malignancy in the left upper lobe or lymph nodes consistent with infectious etiology 2. Current tobacco dependence 3. History of hypertension 4. History of prostate cancer 5. History of DVT 6. Arthritis 7. ASD closure 8. Family history of CAD and cancer Plan: 1. Continue pleural chest tube to waterseal, monitor for air leak resolution. 2. Encourage incentive spirometry use 10 times every hour while awake. Bronchodilators per pulmonology 3. Increase activity, ambulate as tolerated. 4. Will monitor daily labs and x-rays 5. Pain control with current medication regimen 6. GI/DVT prophylaxis 7. Smoking cessation counseling offered. Continue nicotine patch 8. Encourage oral intake. No fat diet 9. Continue Flomax 10. More recommendations to follow Time with Patient: Greater than 30
[2021-01-28] MEDS: HEPARIN SODIUM,PORCINE/PF 5,000 UNIT/0.5 ML SYRINGE SQ SCH ×3 (08:14→23:53)
[2021-01-28] MEDS: TAMSULOSIN 0.4 MG CAP.ER.24H PO SCH (08:15)
[2021-01-28] MEDS: NICOTINE 21MG/24HR PATCH TRANSDERM SCH (08:15)
[2021-01-28] MEDS: ESCITALOPRAM 10 MG TAB PO SCH (08:15)
[2021-01-28] MEDS: SENNOSIDES-DOCUSATE SODIUM 1 EACH TAB PO SCH (08:15)
[2021-01-28] MEDS: diazePAM 5 MG TAB PO SCH (20:17)
--- NOTE | 2021-01-29 05:24 | PN ---
PROGRESS NOTE This is a 55-year-old white male status post lung lobectomy in the left lung. He is on room air now. Chest tube has been removed. He will be discharged home tomorrow. Temp 97.9, pulse 80 to 84, respirations 16 to 18. Sating 93 on room air. Cardiovascular S1-S2. Lungs wheezes left upper lobe. Hematology negative Homans. Psych fair mood and affect. ASSESSMENT: 1. Status post left upper lobe lobectomy. 2. Chronic obstructive pulmonary disease. 3. Nicotine addiction. 4. Degenerative disc disease. 5. Hypertension. 6. Prognosis guarded. Follow up next 24 to 48 hours for discharge. Chest tube has been removed. MMODL / IJN: [id number] /
[2021-01-29] MEDS: PANTOPRAZOLE 40 MG TABLET PO SCH (06:39)
[2021-01-29] MEDS: HYDROcodone/APAP 10-325MG 1 EACH TAB PO PRN (06:39)
--- NOTE | 2021-01-29 07:13 | XR ---
EXAMINATION TYPE: XR chest 2V DATE OF EXAM: 01/29/2021 COMPARISON: 01/28/2021 TECHNIQUE: PA and lateral views submitted. HISTORY: Post surgical FINDINGS: Chest tube has been removed and there is a approximately 5-10% left-sided hydropneumothorax. Left-pedro luis ed consolidation is stable and there is diffuse subcutaneous emphysema on the left. Underlying COPD s uspected. Right lower lobe infiltrate and small effusion stable. Heart size stable. Postsurgical sheehan ges suggested. IMPRESSION: 1. Stable subcutaneous emphysema and left-sided pneumothorax measuring approximately 5-10%. 2. Bilateral infiltrate and pleural effusion.
[2021-01-29 08:04] VITALS: BP 99/63; RESP 18; TEMP 97.4
[2021-01-29] MEDS: IPRATROPIUM-ALBUTEROL 3 ML NEB IH SCH ×2 (08:48→12:27)
--- NOTE | 2021-01-29 08:53 | P.PN ---
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 Previous medical history of current tobacco dependence, hypertension, prostate cancer, DVT, arthritis, ASD closure, and family history of CAD and cancer POD #8 robotic-assisted left thoracoscopy with lysis of adhesions, conversion to left thoracotomy with left upper lobectomy and mediastinal lymph node dissection, decortication of the left lower lobe, cryoablation of left intercostal nerves III, 4, 5, 6, and 7 with subsequent left pneumothorax and extensive subcutaneous emphysema which are all expected consequences of lung surgery with open thoracotomy, not complications The patient was seen and examined this morning sitting up in a recliner in no acute distress on the cardiac stepdown unit eating breakfast. He denies shortness of breath, states postsurgical pain is controlled with current medication regimen. Remains in sinus rhythm, hemodynamically stable. Left pleural chest tube discontinued yesterday. Oxygenating well on room air, continues to achieve 1250 mL on his incentive spirometry. Chest x-ray reviewed. No other new concerns. Patient requesting to go home today Objective - Vital Signs Vital signs: Vital Signs Temp 97.4 F L 01/29/21 08:02 Pulse 86 01/29/21 08:02 Resp 18 01/29/21 08:02 BP 99/63 01/29/21 08:02 Pulse Ox 94 L 01/29/21 08:02 Intake & Output 01/28/21 01/29/21 01/29/21 18:59 06:59 18:59 Intake Total 480 118 Output Total 610 741 Balance -130 -741 118 Weight 83.5 kg Intake: Oral 480 118 Output: Chest Tube Drainage 10 Chest Tube Left Lateral 10 Chest Urine 600 740 Stool 1 Other: Voiding Method Toilet Toilet Urinal Urinal # Voids 1 ABP, PAP, CO, CI - Last Documented Arterial Blood Pressure 102/92 - Exam CONSTITUTIONAL: Appears comfortable, cooperative, no acute distress RESPIRATORY: Lungs sounds diminished in the bases bilaterally. Respirations even, nonlabored. Currently on room air with oxygen saturation 93%. Able to achieve 1250 mL on incentive spirometry. Strong productive cough. CARDIOVASCULAR: S1, S2 present. Regular rate and rhythm, sinus rhythm on telemetry. Palpable peripheral pulses bilaterally. No edema present. No calf pain or tenderness noted. SCDs present. GASTROINTESTINAL: Abdomen soft, nontender, nondistended. Active bowel sounds present 4 quadrants. Tolerating diet. Positive bowel movement GENITOURINARY: Continues to void clear yellow urine INTEGUMENTARY: Skin is warm and dry with evidence of good perfusion. Thoracic incision well approximated without redness or drainage NEUROLOGIC: Cranial nerves II through XII intact MUSKULOSKELETAL: Able to move all extremities, strength equal bilaterally PSYCHIATRIC: Alert and oriented to person place and time, appropriate affect, intact judgment and insight - Allied health notes Allied health notes reviewed: nursing - Labs CBC & Chem 7: 01/28/21 05:56 01/28/21 05:56 - Imaging and Cardiology Chest x-ray: report reviewed, image reviewed Assessment and Plan Assessment: 1. Left upper lobe lung mass, status post robotic-assisted left thoracoscopy with lysis of adhesions, conversion to left thoracotomy with left upper lobectomy and mediastinal lymph node dissection, decortication of the left lower lobe, cryoablation of left intercostal nerves III, 4, 5, 6, and 7, pathology demonstrates necrotizing granuloma with associated fibrosis, inflammation, and histiocytes with no evidence of malignancy in the left upper lobe or lymph nodes consistent with infectious etiology 2. Current tobacco dependence 3. History of hypertension 4. History of prostate cancer 5. History of DVT 6. Arthritis 7. ASD closure 8. Family history of CAD and cancer Plan: 1. Chest tube discontinued yesterday, x-ray reviewed this morning 2. Encourage incentive spirometry use 10 times every hour while awake. Bronchodilators per pulmonology 3. Increase activity, ambulate as tolerated. 4. Pain control with current medication regimen 5. GI/DVT prophylaxis 6. Smoking cessation counseling offered. Continue nicotine patch 7. Encourage oral intake. No fat diet 8. Continue Flomax 9. Likely will discharge to home today. Will follow up with Dr. Diaz next we ek with chest x-ray prior to visit. Time with Patient: Greater than 30
[2021-01-29] MEDS: SENNOSIDES-DOCUSATE SODIUM 1 EACH TAB PO SCH (08:57)
[2021-01-29] MEDS: HEPARIN SODIUM,PORCINE/PF 5,000 UNIT/0.5 ML SYRINGE SQ SCH (08:57)
[2021-01-29] MEDS: TAMSULOSIN 0.4 MG CAP.ER.24H PO SCH (08:58)
[2021-01-29] MEDS: ESCITALOPRAM 10 MG TAB PO SCH (08:58)
[2021-01-29] MEDS: NICOTINE 21MG/24HR PATCH TRANSDERM SCH (08:58)
[2021-01-29 09:41] LABS: HCT 34.8 % (39.0-53.0); MCH 31.2 pg (25.0-35.0); MCHC 31.6 g/dL (31.0-37.0); MCV 98.6 fL (80.0-100.0); Platelet Count 365 k/uL (150-450); RBC 3.53 m/uL (4.30-5.90); RDW 13.9 % (11.5-15.5); WBC 9.3 k/uL (3.8-10.6)
[2021-01-29 09:57] LABS: African American GFR (CKD) >90 (>60 ml/min/1.73 sqM); Anion Gap 6 mmol/L; Blood Urea Nitrogen 22 mg/dL (9-20); Calcium 9.2 mg/dL (8.4-10.2); Carbon Dioxide 27 mmol/L (22-30); Chloride 103 mmol/L (98-107); Glucose 99 mg/dL (74-99); Non-African American GFR(CKD) 90 (>60 ml/min/1.73 sqM); Sodium 136 mmol/L (137-145)
--- NOTE | 2021-01-29 11:28 | P.PN ---
Subjective Progress Note Date: 01/29/21 Principal diagnosis: Left upper lobe mass status post left upper lobectomy and decortication of left lower lobe due to adhesions with lysis Left sided small pneumothorax 10% COPD Depression GERD Atelectasis Left-sided pleural effusion 01/29/2021, patient seen eval examined during the rounds labs reviewed medications reviewed radiographic studies reviewed as well respiratory status remains stable patient able to get up and move around however some shortness of breath is still present complaining of pain but manageable with oral pain medications, care emphysema is present stable progression is seen, chest x-ray today reviewed basal atelectasis along with left-sided 10% pneumothorax remains unchanged, chest tube has been removed, patient is being planned for discharge will follow-up on the pneumothorax and subcu emphysema and respiratory status on outpatient basis, medications reviewed laboratory data reviewed 01/27/2021, patient seen eval examined during the rounds labs reviewed medications reviewed care plan discussed chest x-ray reviewed as well shortness of breath stable, dressing has been bed soaking intermittently, pleural drainage however is more concentrated, patient informed and discussed with path reports and biopsy results, chest x-ray remains stable, patient is still have intermittent air leak, 01/26/2021, patient seen eval examined during the rounds labs reviewed medications reviewed care plan discussed, respirator status remains stable but however still get short of breath on activity and exertion, left-sided chest tube is in draining now clear sanguinous discharge and fluid, new Pleur-evac has been placed, some air leak is present, pain is better under control, patient use his BiPAP machine at night able to sleep better last night complaining of lower extremity swelling and dependent edema will keep legs up as well chest x-ray f rom today reviewed stable left-sided chest tube, extensive emphysema on the left side persist not significant change no pneumothorax seen some basal atelectasis reviewed patient last to continue deep breathing exercises and incentive spirometry 01/25/2021, patient seen eval examined during the rounds labs reviewed medications reviewed care plan discussed, S3 status remains stable however air leak in the chest tube has improved now, but patient is continued to have sanguinous discharge in chest [place] 950 mL are present, patient to the chest sleep disorder breathing and sleep apnea wants to use his CPAP machine will order BiPAP in the meantime until he gets from home, chest x-ray from today reviewed stable chest tube subcutaneous emphysema seen again no pneumothorax seen 01/24/2021 patient seen eval examined, sitting upright in chair breathing comfortably off of supplemental oxygen doing incentive spirometry about in between 500 mL to a liter, suction has been removed, 1900 mL of serous sanguinous output obtained from the right-sided chest tube is still have yearly leak, patient is in better spirits, denies any chest pain breathing comfortably 01/23/2021, patient seen and evaluated examined during the rounds labs reviewed medications reviewed care plan discussed, patient sitting on upright in the chair, some pain on deep breathing is present less cough congestion, hemodynamic status stable, left-sided chest tube, around 660 mL of sanguinous fluid with air leak, labs from today reviewed white cell count is 10,700 hemoglobin is trending down but relatively stable 12.6, chemistry from yesterday reviewed, patient overall feeling better today in better spirits, chest x-ray from today reviewed no significant pneumothorax seen stable left-sided apical chest tube with exte nsive subcu emphysema no new infiltrate identified Patient is a pleasant 65-year-old male who was admitted into the hospital on January 21 for elective left upper lobe resection of mass as well as the lymph node dissection by Dr. Diaz, patient underwent left thoracotomy with lysis radiation and left upper lobe resection with lymph node dissection and decortication of left lower lobe, with cryoablation of left intercostal now off 3-7 under general anesthesia, patient lost almost 2 L of blood, patient has a left-sided chest tube with air leak with sanguinous discharge in the pleural VAC final path report however is pending, patient was diagnosed with left upper lobe mass recently also has significant history of depression COPD smoking hypertension hypertensive cardiovascular disease and GERD Objective - Vital Signs Vital signs: Vital Signs Temp 97.4 F L 01/29/21 08:02 Pulse 86 01/29/21 09:02 Resp 18 01/29/21 08:02 BP 99/63 01/29/21 08:02 Pulse Ox 93 L 01/29/21 08:52 Intake & Output 01/28/21 01/29/21 01/29/21 18:59 06:59 18:59 Intake Total 480 118 Output Total 610 741 Balance -130 -741 118 Weight 83.5 kg Intake: Oral 480 118 Output: Chest Tube Drainage 10 Chest Tube Left Lateral 10 Chest Urine 600 740 Stool 1 Other: Voiding Method Toilet Toilet Urinal Urinal # Voids 1 ABP, PAP, CO, CI - Last Documented Arterial Blood Pressure 102/92 - Exam - Constitutional General appearance: average body habitus, cooperative, disheveled, mild distress - EENT Eyes: PERRLA Ears: bilateral: normal - Neck Neck: normal ROM Carotids: bilateral: upstroke normal Thyroid: bilateral: normal size - Respiratory Respiratory: bilateral: diminished, left-sided chest tube connected with pleural VAC - Cardiovascular Rhythm: regular Heart sounds: normal: S1, S2 - Gastrointestinal General gastrointestinal: normal bowel sounds - Integumentary Integumentary: normal - Neurologic Neurologic: CNII-XII intact - Musculoskeletal Musculoskeletal: gait normal, generalized weakness, strength equal bilaterally - Psychiatric Psychiatric: A&O x's 3, appropriate affect, intact judgment & insight - Labs CBC & Chem 7: 01/29/21 08:59 01/29/21 08:59 Labs: Abnormal Lab Results - Last 24 Hours (Table) 01/29/21 01/29/21 Range/Units 08:59 08:59 RBC 3.53 L (4.30-5.90) m/uL Hgb 11.0 L (13.0-17.5) gm/dL Hct 34.8 L (39.0-53.0) % Sodium 136 L (137-145) mmol/L BUN 22 H (9-20) mg/dL Assessment and Plan Assessment: necrotizing granuloma with associated fibrosis inflammation history of sites along with 6 benign hilar lymph node negative for malignancy, likely infectious etiology however no comments from pathologist seen for organism, awaiting an addendum Left upper lobe mass status post left upper lobectomy and decortication of left lower lobe due to adhesions with lysis Left-sided 10% Pneumothorax Subcutaneous emphysema Sleep disorder breathing and sleep apnea COPD Depression GERD Atelectasis Left-sided pleural effusion Plan: Continue pain medicine Continue CPAP/BiPAP at home patient has a CPAP machine at home Continue bronchodilators Deep breathing exercise Incentive spirometry Pain control DVT prophylaxis Increase activity as tolerated Agree with discharge planning follow-up in office Time with Patient: Greater than 30
[2021-01-29 12:37] VITALS: PULSE 80
--- NOTE | 2021-01-29 13:27 | P.DS ---
Providers Date of admission: 01/21/21 06:01 Expected date of discharge: 01/29/21 Attending physician: Lion Diaz Consults: 01/21/21 14:53 Consult Physician Routine Consulting Provider: Ramesh Kaiser Consult Reason/Comments: med mgmt; known to you Do you want consulting provider notified?: Yes Consult Physician Stat Consulting Provider: Chirag Rivas Consult Reason/Comments: tube coverer mgmt post thoracotomy/lobectomy Do you want consulting provider notified?: Yes Primary care physician: Ramesh Kaiser [facility] Course: FINAL DIAGNOSIS: 1. Left upper lobe lung mass, pathology demonstrates necrotizing granuloma with associated fibrosis, inflammation, and histocytes with no evidence of malignancy in the left upper lobe or lymph nodes, consistent with infectious etiology 2. Current tobacco dependence 3. History of hypertension 4. History of prostate cancer 5. History of DVT 6. Arthritis 7. History of ASD closure 8. Family history of CAD and cancer PRINCIPAL PROCEDURE: Robotic-assisted left thoracoscopy with lysis of adhesions, conversion to left thoracotomy with left upper lobectomy and mediastinal lymph node dissection, decortication of the left lower lobe, cryoablation of the left intercostal nerves 3, 4, 5, 6, 7 with subsequent left pneumothorax and extensive subcutaneous emphysema which are all expected consequences of open thoracotomy HISTORY OF PRESENT ILLNESS: This is a 65-year-old gentleman who follows on an outpatient basis with Dr. Ramesh Kaiser for primary care and Dr. Rivas for pulmonology. Due to his smoking history he had a screening CT scan in October which demonstrated a new spiculated nodule 1.5 x 2.5 cm in the left upper lobe near the apex. There was no evidence of mediastinal adenopathy, although this scan was limited due to lack of contrast. This was followed up by a PET scan in November demonstrating uptake in the mass with no evidence of metastasis. There was concern for primary carcinoma of the lung and the patient was referred to Dr. Diaz from cardiothoracic surgery. He was recommended to undergo left upper lobectomy. The usual perioperative course was discussed in detail with the patient and his family, all risks and benefits were explained, all questions were answered, and consent was obtained to proceed with surgery. The patient had preoperative pulmonary function testing and received cardiac clearance and was subsequently scheduled for surgery at the earliest possible date. HOSPITAL COURSE: The patient was brought to the hospital on 01/21/2021, taken to the preoperative area, prepared in the usual fashion, and subsequently taken to the operating room where Dr. Diaz initially performed robotic-assisted left thoracoscopy with lysis of adhesions, but had to convert to left thoracotomy with left upper lobectomy and mediastinal lymph node dissection. Upon completion of surgery the patient was extubated and transferred to the cardiovascular intensive care unit where he was recovered and monitored hemodynamically. This gentleman remained stable in the intensive care unit and was subsequently transferred to the cardiac stepdown unit for further monitoring. He did have ex pected pneumothorax with subcutaneous emphysema and his chest tube remained until it was safe to remove. Left pleural chest tube was removed on postop day #7, repeat chest x-ray the next morning was stable. His oxygen was titrated down, he continued to work with physical and occupational therapy, he was tolerating oral diet, his pain was controlled, and he was ready to be discharged to home on postoperative day #8. He received written and verbal instruction regarding his medications, activity restrictions, signs and symptoms requiring physician notification, and follow-up appointments. Patient Condition at Discharge: Stable Plan - Discharge Summary Discharge Rx Participant: No New Discharge Prescriptions: New Ipratropium-Albuterol Nebulize [Duoneb 0.5 mg-3 mg/3 ml Soln] 3 ml IH RT-QID #120 ml Sennosides-Docusate Sodium [Senokot-S] 2 each PO DAILY #14 tab Nicotine 14Mg/24Hr Patch [Habitrol] 1 patch TRANSDERM DAILY #14 patch Continue HYDROcodone/APAP 10-325MG [[place] 10-325] 1 tab PO Q6H PRN #90 tab PRN Reason: Pain Tamsulosin [Flomax] 0.4 mg PO DAILY Escitalopram [Lexapro] 30 mg PO DAILY Diazepam [Valium] 5 mg PO HS Meclizine [Antivert] 12.5 mg PO TID PRN PRN Reason: Vertigo Discontinued Losartan Potassium 50 mg PO DAILY Discharge Medication List HYDROcodone/APAP 10-325MG [[place] 10-325] 1 tab PO Q6H PRN #90 tab 07/20/17 [Rx] Escitalopram [Lexapro] 30 mg PO DAILY 02/12/19 [History] Tamsulosin [Flomax] 0.4 mg PO DAILY 02/12/19 [History] Diazepam [Valium] 5 mg PO HS 01/14/21 [History] Meclizine [Antivert] 12.5 mg PO TID PRN 01/14/21 [History] Ipratropium-Albuterol Nebulize [Duoneb 0.5 mg-3 mg/3 ml Soln] 3 ml IH RT-QID #120 ml 01/29/21 [Rx] Nicotine 14Mg/24Hr Patch [Habitrol] 1 patch TRANSDERM DAILY #14 patch 01/29/21 [Rx] Sennosides-Docusate Sodium [Senokot-S] 2 each PO DAILY #14 tab 01/29/21 [Rx] Follow up Appointment(s)/Referral(s): Ramesh Kaiser MD [Primary Care Provider] - 1 Week Lion Diaz MD [STAFF PHYSICIAN] - 02/03/21 11:00 am (Please obtain chest x- ray at the hospital prior to your appoinment) Chirag Rivas MD [STAFF PHYSICIAN] - 02/02/21 11:45 am (Monday) Ambulatory/Diagnostic Orders: XR chest 2V [RAD.AMB] Time Frame: 02/04/21, Facility: [facility], Location: [facility] Activity/Diet/Wound Care/Special Instructions: DISCHARGE INSTRUCTIONS: 1. Minimize driving for 2 weeks, or until physician gives their ok. 2. No lifting, pushing, or pulling more than 10 pounds for 2 weeks. The physician will advise of any restriction changes. 3. Continue pain control per as needed orders. Alternate acetaminophen (Tylenol) and ibuprofen (Motrin/Advil) for pain. 4. Continue with incentive spirometry and splinting until otherwise directed by the physician. 5. Leave chest tube dressing for 48 hours. After that, remove all dressings and shower daily. 6. Routine incision care. No powders, lotions, ointments on incisions. 7. Please call surgeon/[facility] [facility]IDE for temp greater than 101 F or purulent drainage from incisions. 8. Smoking cessation counseling and program information provided. 9. Obtain chest x-ray at the hospital before appointment with Dr. Diaz Discharge Disposition: HOME SELF-CARE
== END 2021-01-29 13:25 | disposition home or self-care (01) | DRG 164 ==
LOC: 2ORMAIN 06:01 → 2SICU 13:57 → 3SCARD 01-22 13:09
PROVIDERS: ADMIT Thoracic Surgery (Cardiothoracic Vascular Surgery); ATTEND Thoracic Surgery (Cardiothoracic Vascular Surgery)
PROC: 0BCJ0ZZ Extirpation of Matter from Left Lower Lung Lobe, Open Approach (ICD-10-PCS; 2021-01-21)
PROC: 01584ZZ Destruction of Thoracic Nerve, Percutaneous Endoscopic Approach (ICD-10-PCS; 2021-01-21)
PROC: 07B70ZX Excision of Thorax Lymphatic, Open Approach, Diagnostic (ICD-10-PCS; 2021-01-21)
PROC: 0BNJ0ZZ Release Left Lower Lung Lobe, Open Approach (ICD-10-PCS; 2021-01-21)
PROC: 0BNT4ZZ Release Diaphragm, Percutaneous Endoscopic Approach (ICD-10-PCS; 2021-01-21)
PROC: 0W3Q0ZZ Control Bleeding in Respiratory Tract, Open Approach (ICD-10-PCS; 2021-01-21)
PROC: 8E0W4CZ Robotic Assisted Procedure of Trunk Region, Percutaneous Endoscopic Approach (ICD-10-PCS; 2021-01-21)
PROC: 0BJ08ZZ Inspection of Tracheobronchial Tree, Via Natural or Artificial Opening Endoscopic (ICD-10-PCS; 2021-01-21)
PROC: 0BTG0ZZ Resection of Left Upper Lung Lobe, Open Approach (ICD-10-PCS; principal; 2021-01-21 07:30)
PROC: 5A09457 Assistance with Respiratory Ventilation, 24-96 Consecutive Hours, Continuous Positive Airway Pressure (ICD-10-PCS; 2021-01-26)
DX: J84.10 Pulmonary fibrosis, unspecified (principal); J93.82 Other air leak; J93.9 Pneumothorax, unspecified; J98.11 Atelectasis; J90 Pleural effusion, not elsewhere classified; T79.7XXA Traumatic subcutaneous emphysema, initial encounter; F17.200 Nicotine dependence, unspecified, uncomplicated; G47.30 Sleep apnea, unspecified; G62.9 Polyneuropathy, unspecified; J43.9 Emphysema, unspecified; F32.9 Major depressive disorder, single episode, unspecified; K21.9 Gastro-esophageal reflux disease without esophagitis; N40.0 Benign prostatic hyperplasia without lower urinary tract symptoms; M19.90 Unspecified osteoarthritis, unspecified site; K59.00 Constipation, unspecified; I11.9 Hypertensive heart disease without heart failure; Z85.46 Personal history of malignant neoplasm of prostate; Z87.74 Personal history of (corrected) congenital malformations of heart and circulatory system; Z82.49 Family history of ischemic heart disease and other diseases of the circulatory system; Z86.718 Personal history of other venous thrombosis and embolism; Z79.899 Other long term (current) drug therapy; M25.512 Pain in left shoulder; K66.0 Peritoneal adhesions (postprocedural) (postinfection)
CPT/HCPCS: 36430; 71045; 71046; 80048; 80051; 80053; 82565; 82805; 84520; 85025; 85027; 86850; 86900; 86901; 86920; 88305; 88309; 88312; 88331; 94640; 94660; 94760

== ENCOUNTER → 2021-02-03 | Outpatient (CLI) | payer MEDICARE, BC ==
--- NOTE | 2021-02-03 13:16 | XR ---
EXAMINATION TYPE: XR chest 2V DATE OF EXAM: 02/03/2021 COMPARISON: 01/29/2021 HISTORY: 65-year-old male status post left upper lobectomy. TECHNIQUE: Frontal and lateral views FINDINGS: Subcutaneous emphysema redemonstrated along the left hemithorax. Small left apical pneumothorax currently measuring 1.5 cm versus 1.37 m, previously. Continued small left pleural effusion with patchy density left mid and lower lung. Patchy opacity right base has incr eased. Volume loss in the left hemithorax. Heart remains borderline enlarged. IMPRESSION: 1. Post surgical change in the left hemithorax with small left apical pneumothorax stable to minimall y larger at 1.5 cm versus 1.3 cm, previously. 2. Continued small left pleural effusion with prominent left mid and lower lung atelectasis and/or co nsolidation. 3. Patchy right basilar atelectasis versus infiltrate/pneumonia is new. Correlate with patient's symp toms.
== END | disposition home or self-care (01) ==
LOC: RADXRMAIN 07:57
PROVIDERS: ATTEND Nurse Practitioner Acute Care
DX: Z48.813 Encounter for surgical aftercare following surgery on the respiratory system (principal); J95.811 Postprocedural pneumothorax; J90 Pleural effusion, not elsewhere classified
CPT/HCPCS: 71046

== ENCOUNTER → 2021-05-10 | Outpatient (CLI) | payer MEDICARE, BC | END | disposition home or self-care (01) | LOC: LABWHC1 13:33 | PROVIDERS: ATTEND Surgery | DX: C61 Malignant neoplasm of prostate (principal) | CPT/HCPCS: 36415; 84153 ==

== ENCOUNTER 2021-06-16 19:14 | Emergency (ER) | payer MEDICARE, BC ==
[2021-06-16 19:19] VITALS: BP 126/88; PULSE 84; RESP 18; TEMP 98
[2021-06-16] MEDS ORDERED: HYDROcodone/APAP 7.5-325MG 1 EACH TAB PO ONE (19:40)
[2021-06-16] MEDS ORDERED: DIPH,PERTUS(ACELL)TETVAC-LF 0.5 ML VIAL IM ONE (19:40)
[2021-06-16] MEDS ORDERED: LIDOCAINE 1% INJ 10MG/ML (20 ML MDV) SQ ONE (19:40)
[2021-06-16] MEDS ORDERED: ceFAZolin 1,000 MG VIAL (IM USE) IM STA (20:07)
--- NOTE | 2021-06-16 20:11 | XR ---
EXAMINATION TYPE: XR wrist limited RT DATE OF EXAM: 06/16/2021 COMPARISON: NONE HISTORY: Wrist pain TECHNIQUE: 2 views FINDINGS: Carpal bones appear intact. Metacarpals are intact. I see no fracture nor dislocation. IMPRESSION: Negative right wrist exam. No fracture
--- NOTE | 2021-06-16 20:15 | ED ---
General Adult HPI <Wesley Tenorioli - Last Filed: 06/16/21 21:09> - General Source: patient, RN notes reviewed, old records reviewed Mode of arrival: ambulatory Limitations: no limitations <Roman Pink - Last Filed: 06/16/21 21:22> - General Chief complaint: Wound/Laceration Stated complaint: Rt Arm Injury Time Seen by Provider: 06/16/21 19:23 - History of Present Illness Initial comments: Patient is a 66-year-old male with significant past medical history presents emergency Department approximately 1 hour after getting his arm caught in a snowblower and receiving a laceration. On further review the chart, patient does have a history COPD. States that approximately an hour ago, he reached into the chute on a snowblower, when he was grabbed by the chain. He received a laceration to the anterior aspect of his right wrist. Was able to pull his arm out. He believes that the padding of the jacket helped prevent worse injury. Denies any numbness or weakness distal to the injury. States there is not much bleeding at home. Seen by EMS, and brought to the emergency department for fur ther evaluation. Uncertain when his last tetanus booster was. He denies any other acute injuries or pain. His no known ALLERGIES. (Roman Pink) - Related Data Home Medications Medication Instructions Recorded Confirmed Escitalopram [Lexapro] 30 mg PO DAILY 02/12/19 01/14/21 Tamsulosin [Flomax] 0.4 mg PO DAILY 02/12/19 01/14/21 Diazepam [Valium] 5 mg PO HS 01/14/21 01/14/21 Meclizine [Antivert] 12.5 mg PO TID PRN 01/14/21 01/14/21 Previous Rx's Medication Instructions Recorded HYDROcodone/APAP 10-325MG [[place] 1 tab PO Q6H PRN #90 tab 07/20/17 10-325] Ipratropium-Albuterol Nebulize 3 ml IH RT-QID #120 ml 01/29/21 [Duoneb 0.5 mg-3 mg/3 ml Soln] Nicotine 14Mg/24Hr Patch [Habitrol] 1 patch TRANSDERM DAILY #14 patch 01/29/21 Sennosides-Docusate Sodium 2 each PO DAILY #14 tab 01/29/21 [Senokot-S] Cephalexin [Keflex] 500 mg PO Q12HR 7 Days #14 cap 06/16/21 Allergies Allergy/AdvReac Type Severity Reaction Status Date / Time No Known Allergies Allergy Verified 06/16/21 19:19 Review of Systems ROS Other: All systems not noted in ROS Statement are negative. <Kelsey Tenorio - Last Filed: 06/16/21 21:09> ROS Other: All systems not noted in ROS Statement are negative. <Roman Pink - Last Filed: 06/16/21 21:22> ROS Statement: Those systems with pertinent positive or pertinent negative responses have been documented in the HPI. Review of Systems: CONST: Denies fever EYES: Denies blurry vision ENT: Denies nasal congestion C/V: Denies Chest pain RESP: Denies shortness of breath GI: Denies abdominal pain : Denies dysuria SKIN: Endorses right wrist laceration MSK: Denies joint pain. NEURO: Denies headache (Roman Pink) Past Medical History Past Medical History: Cancer, COPD, Eye Disorder, GERD/Reflux, Osteoarthritis (OA), Prostate Disorder Additional Past Medical History / Comment(s): Prostate cancer, POSSIBLE GLAUCOMA PT NOT SURE History of Any Multi-Drug Resistant Organisms: None Reported Past Surgical History: Back Surgery, Breast Surgery, Hernia Repair, Orthopedic Surgery Additional Past Surgical History / Comment(s): NECK SURGERY. 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 LT ROTATOR CUFF REPAIR, COLONOSCOPY., EGD, BILAT CATARACTS REMOVED. Right breast benign excisional biopsy 1989. Past Anesthesia/Blood Transfusion Reactions: No Reported Reaction Past Psychological History: Anxiety, Depression Smoking Status: Current every day smoker Past Alcohol Use History: None Reported Past Drug Use History: None Reported - Past Family History Brother(s) Family Medical History: Pulmonary Embolus Mother Family Medical History: Cancer Sister(s) Family Medical History: Cancer Additional Family Medical History / Comment(s): 3 sisters have had cancer <Roman Pink - Last Filed: 06/16/21 21:22> General Exam Limitations: no limitations <Roman Pink - Last Filed: 06/16/21 21:22> - General Exam Comments Initial Comments: General: Appears in no acute distress. HEAD: Normal with no signs of head trauma. EYES: EOMI ENT: Hearing Grossly intact RESPIRATORY: Clear breath sounds bilaterally. No wheezes, rales, or rhonchi. C/V: Regular rate and rhythm. S1 and S2 auscultated. Peripheral pulses are 2+ and intact throughout, including a 2+ right radial and 2+ right ulnar pulse. Good capillary refill distal to the injury in the hand and fingertips. ABD: Abdomen nondistended EXT: Normal range of motion of the right upper extremity including right wrist, hand, fingers. No obvious deformities. Does not appear to have any tendon involvement with laceration. SKIN: Patient has an approximate 6 cm irregularly shaped laceration located over the distal anterior aspect of the right wrist. Not actively bleeding. NEURO: Alert and oriented 4. No focal sensory strength deficits. (Roman Pink) Course Vital Signs 06/16/21 19:15 Temperature 98 F Pulse Rate 84 Respiratory 18 Rate Blood Pressure 126/88 O2 Sat by Pulse 94 L Oximetry Procedures - Laceration Laceration #1 Consent Obtained: verbal consent Indication: laceration Site: other (Right Wrist) Description: flap, avulsion (small avulsion loosley aproximated ), irregular Depth: simple, single layer Anesthetic Used: lidocaine 1% Pre-repair: wound explored, irrigated extensively, deep structures intact Type of Sutures: nylon Size of Sutures: 4-0 Number of Sutures: 7 Technique: simple, interrupted Patient Tolerated Procedure: well, no complications <Kelsey Tenorio - Last Filed: 06/16/21 21:09> - Laceration Laceration #1 Size (cm): 6 Description: flap, avulsion, irregular <Roman Pink - Last Filed: 06/16/21 21:22> Medical Decision Making <Roman Pink - Last Filed: 06/16/21 21:22> - Medical Decision Making Based on the patient's presentation and physical exam, patient appears to have a right wrist laceration that will require suturing. I do not believe that laboratory studies are in at this time, however we will obtain an x-ray of the r ight wrist. Patient will receive a tetanus booster as well as IM Ancef, as well as a [place] tablet for pain control. He'll be given outpatient antibiotics as well. Patient was in agreement this plan. Patient's x-ray revealed no acute process. Laceration was closed by an assisting mid-level provider, please see the laceration repair note. I spoke with the patient and informed him he will be discharged home. He was in agreement this plan. We discussed wound hygiene. I will provide the patient with a prescription for Keflex 500 mg twice a day for 7 days. I instructed the patient to follow up with their PCP in the next 3 days. I explained that the patient should return to the emergency department if they experience any worsening symptoms. Strict return precautions were dis cussed with the patient. The patient expressed understanding of these instructions. I answered all questions that the patient had. The patient was discharged home in good condition with their prescriptions and follow up information. Patient was instructed to return to the emergency department in approximately 7-10 days to have stitches removed. (Roman Pink) Disposition <Kelsey Tenorio - Last Filed: 06/16/21 21:09> Is patient prescribed a controlled substance at d/c from ED?: No <Roman Pink - Last Filed: 06/16/21 21:22> Clinical Impression: Laceration Narrative: Laceration repair with sutures (Roman Pink) Disposition: HOME SELF-CARE Condition: Good Instructions (If sedation given, give patient instructions): Laceration (ED) Additional Instructions: Return in 7-10 days for suture removal. Prescriptions: Cephalexin [Keflex] 500 mg PO Q12HR 7 Days #14 cap Referrals: Ramesh Kaiser MD [Primary Care Provider] - 1-2 days
== END 2021-06-16 20:55 | disposition home or self-care (01) ==
LOC: EC 19:14
DX: S61.511A Laceration without foreign body of right wrist, initial encounter (principal); J44.9 Chronic obstructive pulmonary disease, unspecified; K21.9 Gastro-esophageal reflux disease without esophagitis; M19.90 Unspecified osteoarthritis, unspecified site; F32.A Depression, unspecified; F41.9 Anxiety disorder, unspecified; F17.200 Nicotine dependence, unspecified, uncomplicated; Z79.51 Long term (current) use of inhaled steroids; Z79.899 Other long term (current) drug therapy; W22.8XXA Striking against or struck by other objects, initial encounter
CPT/HCPCS: 73100; 90715; 12002; 90471; 99283; J2001

== ENCOUNTER → 2021-07-26 | Outpatient (CLI) | payer MEDICARE, BC ==
--- NOTE | 2021-07-26 09:58 | CT ---
EXAMINATION TYPE: CT cervical spine wo con DATE OF EXAM: 07/26/2021 COMPARISON: None HISTORY: 66-year-old male M54.12, cervical neuritis TECHNIQUE: Contiguous axial scanning of the cervical spine without IV contrast. Coronal and sagittal reconstructions performed. CT DLP: 620 mGycm Automated exposure control for dose reduction was used. FINDINGS: Mucosal retention cysts along the floors of the maxillary sinuses measuring up to 2.4 cm. Prominent c erumen left external auditory canal. No craniocervical junction abnormalities, predental space widening, or prevertebral soft tissue swell ing. Mild degenerative change of the C1 dens articulation. Post surgical change of C3-C4 ACDF. There is bony interbody fusion extending down from C3 through C7 levels. Facet arthropathy and uncovertebral joint degenerative change below the fused levels at C7-T1 with gr myron 1 anterolisthesis here. No acute fracture of the cervical spine. Elfn-la-sxktnaxr degenerative disc disease above the fusion at C2-C3 along with uncovertebral joint a nd facet arthropathy. There is mild narrowing of the spinal canal throughout the fused levels secondary to residual posteri or osteophytic ridging. Mild canal narrowing above the fusion at C2-C3 secondary to mild posterior disc bulge. No acute fracture of the cervical spine. Mild bilateral palatine tonsillar hypertrophy. Bilateral lingual tonsillar hypertrophy also noted. So me emphysematous change in the visualized upper lungs. At C2-C3, moderate right neuroforaminal stenosis. At C3-C4, mild to moderate right and mild left neural foraminal stenosis. At C4-C5, residual hyperostotic changes contribute to moderate bilateral neural foraminal stenosis. At C5-C6, moderate right and mild left neuroforaminal stenosis. At C6/C7, moderate to severe left and sgdz-gf-azporiuf right neuroforaminal stenosis. At C7-T1, moderate left foraminal stenosis. IMPRESSION: 1. STATUS POST C3-C4 ACDF WITH BONY INTERBODY ANKYLOSIS DOWN THROUGH THE C7 LEVEL. 2. RESIDUAL POSTERIOR OSTEOPHYTIC RIDGING THROUGHOUT THE FUSED LEVELS CONTRIBUTE INTO MILD NARROWING OF THE SPINAL CANAL THROUGHOUT. 3. DEGENERATIVE GRADE 1 ANTEROLISTHESIS C7-T1 SECONDARY TO FACET AND UNCOVERTEBRAL JOINT ARTHROPATHY. 4. VARIABLE MILD TO MODERATE NEUROFORAMINAL STENOSES OUTLINED ABOVE. MORE MODERATE TO SEVERE ON TH E LEFT AT C6-C7.
== END | disposition home or self-care (01) ==
LOC: RADCTMAIN 08:27
PROVIDERS: ATTEND Family Medicine
DX: M47.22 Other spondylosis with radiculopathy, cervical region (principal); M48.02 Spinal stenosis, cervical region; M43.12 Spondylolisthesis, cervical region; M99.71 Connective tissue and disc stenosis of intervertebral foramina of cervical region; Z98.1 Arthrodesis status
CPT/HCPCS: 72125

== ENCOUNTER → 2021-10-22 | Outpatient (CLI) | payer MEDICARE, BC ==
--- NOTE | 2021-10-22 16:24 | MR ---
EXAMINATION TYPE: MR cervical spine wo con DATE OF EXAM: 10/22/2021 COMPARISON: CT cervical spine 07/26/2021 HISTORY: Cervical pain, fell at work CONTRAST: None TECHNIQUE: Multiplanar multiecho imaging on a 3.0 Ngozi magnet is performed through the cervical spin e. FINDINGS: Craniovertebral junction appears normal. Anterior cervical fusion of C3-4 is evident. There appears t o be fusion of C4-C7. Significant posterior wall displacement is not identified. Within the spinal cord there is a small linear segment of increased signal just right of midline post erior to the C4 level. Some myelomalacia may be present at this level. Note is made of uncovertebral joint hypertrophy at the C4-5 level with moderate bilateral foraminal stenosis. Foraminal narrowing a lso appears to be present C5-6 and C6-7. Some mild right paracentral endplate spurring in the region of C6-7 may be present with mild anterior thecal sac compression. No cord contact is evident. No AP spinal canal stenosis is present. IMPRESSIONS: 1. Suggestion of myelomalacia posterior to the C4 level 2. No spinal canal stenosis. 3. Foraminal narrowing appears to be present in the regions of C4-5 C5-6 and C6-7. 3. Mild right paracentral endplate spurring in the region of C6-7 with mild anterior thecal sac compr ession. No cord contact or spinal canal stenosis at this level.
== END | disposition home or self-care (01) ==
LOC: RADMRIMAIN 11:05
PROVIDERS: ATTEND Orthopaedic Surgery
DX: M99.71 Connective tissue and disc stenosis of intervertebral foramina of cervical region (principal)
CPT/HCPCS: 72141

== ENCOUNTER → 2021-11-26 | Outpatient (CLI) | payer MEDICARE, BC | END | disposition home or self-care (01) | LOC: LABWHC1 10:09 | PROVIDERS: ATTEND Surgery | DX: C61 Malignant neoplasm of prostate (principal) | CPT/HCPCS: 36415; 84153 ==

== ENCOUNTER → 2021-12-03 | Outpatient (CLI) | payer MEDICARE, BC ==
--- NOTE | 2021-12-03 16:35 | XR ---
EXAMINATION TYPE: XR chest 2V DATE OF EXAM: 12/03/2021 4:26 PM COMPARISON: Chest radiographs from 02/03/2021. TECHNIQUE: XR chest 2V Frontal and lateral views of the chest. CLINICAL INDICATION:Male, 66 years old with history of M94.0 CHONDROCOSTAL JUNCTION SYNDROME [TIETZE] ; FINDINGS: Lungs/Pleura: There is no evidence of pleural effusion, focal consolidation, or pneumothorax. Flatte jeison of the hemidiaphragms. Volume loss of the left hemithorax. Heart/mediastinum: Borderline enlarged cardiac mediastinal silhouette. Atrioseptal defect closure dev ice is noted. Musculoskeletal: No acute osseous pathology. Other findings: Electronic power pack overlies the left chest. IMPRESSION: No acute cardiopulmonary disease/process.
== END | disposition home or self-care (01) ==
LOC: RADXRMAIN 16:14
PROVIDERS: ATTEND Internal Medicine Sleep Medicine
DX: M94.0 Chondrocostal junction syndrome [Tietze] (principal)
CPT/HCPCS: 71046

== ENCOUNTER → 2021-12-03 | Outpatient (CLI) | payer MEDICARE, BC | END | disposition home or self-care (01) | LOC: LABWHC1 16:02 | PROVIDERS: ATTEND Internal Medicine Sleep Medicine | DX: E27.1 Primary adrenocortical insufficiency (principal) | CPT/HCPCS: 36415; 82533 ==

== ENCOUNTER → 2021-12-10 | Outpatient (CLI) | payer MEDICARE, BC ==
--- NOTE | 2021-12-12 09:52 | CT ---
CT CHEST FOR PULMONARY EMBOLISM. EXAMINATION TYPE: CT chest w con DATE OF EXAM: 12/10/2021 INDICATION: PULMONARY EMBOLISM CT DLP: 290.3 mGycm, Automated exposure control for dose reduction was used. CONTRAST: Patient injected with 80ml mL of Isovue 300. COMPARISON: 03/08/2013 TECHNIQUE: CT of the chest is performed on a spiral scan at 2 mm thick sections. Study is performed with intravenous contrast timed for evaluation for pulmonary embolism. This will limit additional po rtions of the evaluation. 3-D MIP images reconstructed by the technologist are reviewed on the compu ter in the coronal and sagittal planes. FINDINGS: No persistent filling defects are evident to suggest an acute pulmonary embolism. There is some filli ng defect along the superior left main pulmonary artery, series 3 image 27. Minimal filling defect al opal the lateral margin of the right lower lobe pulmonary artery is present, series 3 image 43. Some c hronic thrombus may be present. These are nonobstructing. No mediastinal or hilar adenopathy enlarged by CT criteria is evident. The ascending aorta diameter at the level of the main pulmonary artery is 3.3 cm. The main pulmonary artery diameter at the bifur cation is 3.3 cm. There is a new low density area along the mediastinal border on the left measuring 1.1 cm. Series 4 i mage 35. Follow-up exam in 6 months is recommended. There is increased density along the right pleura l margin measuring 1.3 cm. Series 4 image 47. This could be followed in 6 months. There is a 0.5 cm n odule posterior right lung base. Series 4 image 50. This was present previously and stable. Limited CT section through the upper abdomen are unremarkable. IMPRESSIONS: 1. There appears to be some nonobstructing chronic thrombus present within the enrique of the bilateral pulmonary arteries. 2. Few scattered areas of suspected infiltrate along the mediastinal borders. Follow-up exam in 6 mon ths is recommended.
== END | disposition home or self-care (01) ==
LOC: RADCTMAIN 17:48
PROVIDERS: ATTEND Internal Medicine Sleep Medicine
DX: I26.99 Other pulmonary embolism without acute cor pulmonale (principal)
CPT/HCPCS: 82565; 84520; 71260; 36415; Q9967

== ENCOUNTER → 2022-02-14 | Outpatient (CLI) | payer MEDICARE, BC ==
--- NOTE | 2022-02-14 08:58 | CT ---
EXAMINATION TYPE: CT lumbar spine wo con DATE OF EXAM: 02/14/2022 8:15 AM COMPARISON: None. HISTORY: LOWER BACK PAIN CT DLP: 974 mGycm Automated exposure control for dose reduction was used. Unenhanced CT of the lumbar spine was performed. Bone and soft tissue window settings are submitted as well as coronal and sagittal reconstructions. There are 5 lumbar-type vertebra. There is dextroconvex scoliosis centered at L2-L3 level. Posterior interpedicular rods and screws transfix the L3-L5 levels bilaterally with metallic disc material at t hese levels noted. Slight grade 1 retrolisthesis L2 on L3 and L3 on L4 on current study. Moderate to severe disc space narrowing with endplate sclerosis and moderate to severe anterior and lateral spurr ing left L2-L3 level. Mild to moderate anterior and lateral spurring superior to this. Axial images show the T12-L1 level to have broad-based left eccentric disc protrusion effacing the an terolateral thecal sac. Patent bilateral neural foramina. Axial images at the L1-L2 level show mild broad disc bulge with right foraminal disc protrusion compo nent minimally effacing the anterolateral thecal sac. Mild right-sided neural foraminal narrowing. Axial images at L2-L3 levels with spondylolisthesis with broad-based posterior spur disc complex effa cing the anterior thecal sac. There is mild to moderate facet arthropathy bilaterally effacing the po sterolateral thecal sac. There is moderate to severe left-sided neural foraminal narrowing. Right-pedro luis ed neural foramina is patent. Axial images at L3-L4 levels with spondylolisthesis. There is artifact from metallic hardware. There is right-sided laminectomy defect. There is moderate facet arthropathy. Mild bilateral anterior infer ior neural foraminal narrowing is seen. Axial images at L4-L5 level from right-sided laminectomy defect. There is moderate facet arthropathy bilaterally. Pelvic hardware is seen. There is mild to moderate bilateral neural foraminal narrowing. Axial images at the L5-S1 level shows moderate to advanced right greater than left facet arthropathy. Bilateral neural foramina are patent. Focal ectasia up to 2.8 cm of the infrarenal abdominal aorta axial image 46. IMPRESSION: Scoliosis is identified. Surgical change L3-L5 level is noted. Multilevel spondylolisthes is and degenerative change greatest at L2-L3 level is seen as detailed above.
== END | disposition home or self-care (01) ==
LOC: RADCTMAIN 07:51
PROVIDERS: ATTEND Orthopaedic Surgery
DX: M43.16 Spondylolisthesis, lumbar region (principal); M41.86 Other forms of scoliosis, lumbar region; M47.816 Spondylosis without myelopathy or radiculopathy, lumbar region
CPT/HCPCS: 72131

== ENCOUNTER → 2022-03-16 | Outpatient (CLI) | payer MEDICARE, BC ==
[2022-03-16 07:45] LABS: African American GFR (CKD) >90 (>60 ml/min/1.73 sqM); Blood Urea Nitrogen 29 mg/dL (9-20); Non-African American GFR(CKD) 79 (>60 ml/min/1.73 sqM)
--- NOTE | 2022-03-16 08:41 | CT ---
EXAMINATION TYPE: CT chest w con DATE OF EXAM: 03/16/2022 COMPARISON: 12/10/21 HISTORY: Soitary Pulmonary Nodule CT DLP: 301.5 mGycm Automated exposure control for dose reduction was used. CONTRAST: CT scan of the chest is performed with IV Contrast, patient injected with 70 mL of Isovue 300. FINDINGS: LUNGS: Subpleural nodule left upper lobe medially persists and currently measures 7.5 mm versus prior measurement of 11 mm. Stable 5 mm pulmonary nodule right lower lobe image 47. No new nodules are camilo ntified. Parenchymal scarring noted within the medial segment right middle lobe is unchanged. No evid ence for infiltrate or mass. No pleural effusion. MEDIASTINUM: There are no greater than 1 cm hilar or mediastinal lymph nodes. No pericardial effusi on is seen. Thoracic aorta is of normal caliber. The heart is enlarged. UPPER ABDOMEN: No significant abnormality appreciated. OTHER: No additional significant abnormality is seen. IMPRESSION: Stable pulmonary nodularity. Stability over a two-year timeframe should be documented radiographiclouis knutson
== END | disposition home or self-care (01) ==
LOC: RADCTMAIN 06:42
PROVIDERS: ATTEND Internal Medicine Sleep Medicine
DX: R91.8 Other nonspecific abnormal finding of lung field (principal)
CPT/HCPCS: 82565; 84520; 71260; 36415; Q9967

== ENCOUNTER 2022-10-03 12:36 | Day surgery (SDC) | payer MEDICARE, BC ==
[2022-09-28 16:07] VITALS: BMI 27.6
[~2022-10-03 12:36] MED LIST changes: -DEXAMETHASONE SOD PHOSPHATE 4 MG/ML 1 ML VIAL IV ONE; +LIDOCAINE 1% (10MG/ML) FOR IV START INTRADERMA PRN; -MIDAZOLAM 2 MG/2 ML VIAL IV PRN; -ONDANSETRON 4 MG/2 ML VIAL IVP ONE
[2022-10-03] MEDS ORDERED: LACTATED RINGERS 1,000 ML IV ONE (12:58)
[2022-10-03] MEDS ORDERED: PROPOFOL 10 MG/ML 20 ML VIAL IV ONE (12:59)
[2022-10-03] MEDS ORDERED: LIDOCAINE 2% INJ 20 MG/ML (2 ML VIAL) ONE (12:59)
[2022-10-03 13:02] VITALS: TEMP 97
--- NOTE | 2022-10-03 13:04 | P.GSHP ---
History of Present Illness H&P Date: 10/03/22 Chief Complaint: Diarrhea, GERD This a 67-year-old male who's had complaints of GERD and diarrhea. Patient presents today for EGD and colonoscopy. Past Medical History Past Medical History: Cancer, COPD, GERD/Reflux, Osteoarthritis (OA), Prostate Disorder Additional Past Medical History / Comment(s): Prostate cancer with radiation. States whole body hurts" History of Any Multi-Drug Resistant Organisms: None Reported Past Surgical History: Back Surgery, Breast Surgery, Hernia Repair, Orthopedic Surgery Additional Past Surgical History / Comment(s): NECK SURGERY. 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 LT ROTATOR CUFF REPAIR, COLONOSCOPY., EGD, BILAT CATARACTS REMOVED. Right breast benign excisional biopsy 1989. Past Anesthesia/Blood Transfusion Reactions: No Reported Reaction Smoking Status: Current every day smoker - Past Family History Brother(s) Family Medical History: Pulmonary Embolus Mother Family Medical History: Cancer Sister(s) Family Medical History: Cancer Additional Family Medical History / Comment(s): 3 sisters have had cancer Medications and Allergies Home Medications Medication Instructions Recorded Confirmed Type HYDROcodone/APAP 10-325MG [[place] 1 tab PO Q6H PRN #90 tab 07/20/17 09/28/22 Rx 10-325] Escitalopram [Lexapro] 30 mg PO DAILY 02/12/19 09/28/22 History diazePAM [Valium] 5 mg PO HS 01/14/21 09/28/22 History Ipratropium-Albuterol Nebulize 3 ml IH RT-QID #120 ml 01/29/21 09/28/22 Rx [Duoneb 0.5 mg-3 mg/3 ml Soln] Nicotine 14Mg/24Hr Patch [Habitrol] 1 patch TRANSDERM DAILY #14 patch 01/29/21 09/28/22 Rx Loratadine [Claritin] 5 mg PO DAILY 09/28/22 09/28/22 History Montelukast [Singulair] 10 mg PO DAILY 09/28/22 09/28/22 History Allergies Allergy/AdvReac Type Severity Reaction Status Date / Time No Known Allergies Allergy Verified 10/03/22 12:51 Surgical - Exam - General well developed, well nourished, no distress - Eyes PERRL - ENT normal pinna, normal nares - Neck no masses - Respiratory normal expansion - Cardiovascular Rhythm: regular - Abdomen Abdomen: soft, non tender Assessment and Plan Assessment: GERD and diarrhea. We'll perform colonoscopy EGD
--- NOTE | 2022-10-03 13:24 | P.OP ---
Date of Procedure: 10/03/22 Preoperative Diagnosis: GERD Diarrhea Postoperative Diagnosis: Antral gastritis Mild esophagitis Cecal polyp Procedure(s) Performed: EGD Colonoscopy Anesthesia: MAC Surgeon: Santosh Galaviz Pathology: other (Antrum, esophagus, cecal polyp) Condition: stable Disposition: PACU Description of Procedure: The patient's placed on the endoscopy table lateral position he received IV sedation. The gastroscope was oropharynx passed in the esophagus and stomach. Scope was placed through the pylorus. First and second portion duodenum appeared normal. Scope summer back the antrum this. Mildly inflamed. A biopsies performed. Scope was then retroflexed and the remainder the stomach appeared normal. The GE junction was at 40 cm. The distal esophagus mildly inflamed. A biopsies performed. The proximal esophagus appeared normal. Scope withdrawn for patient. Next digital rectal exam was performed this revealed a few external hemorrhage. Possible colonoscope was then placed patient anus and passed throughout the entire colon. Ileocecal valve was visually is. The cecum there was a small sessile polyp. This was removed with the cold biopsy forcep. Scope was withdrawn. Remainder the ascending colon, transverse and descending colon appeared normal. There was a few scattered diverticuli sigmoid colon scope summer back the rectum and this appeared normal. Scope withdrawn for patient.
[2022-10-03 13:30] VITALS: RESP 16
[2022-10-03 14:03] VITALS: BP 112/73; PULSE 70
== END 2022-10-03 14:14 | disposition home or self-care (01) ==
LOC: ORWHC2ENDO 12:36
PROVIDERS: ATTEND Surgery
DX: K29.50 Unspecified chronic gastritis without bleeding (principal); D12.0 Benign neoplasm of cecum; K21.00 Gastro-esophageal reflux disease with esophagitis, without bleeding; K57.30 Diverticulosis of large intestine without perforation or abscess without bleeding; J44.9 Chronic obstructive pulmonary disease, unspecified; M19.90 Unspecified osteoarthritis, unspecified site; F17.200 Nicotine dependence, unspecified, uncomplicated; Z85.46 Personal history of malignant neoplasm of prostate; Z98.890 Other specified postprocedural states; Z80.8 Family history of malignant neoplasm of other organs or systems; Z79.899 Other long term (current) drug therapy
CPT/HCPCS: 88305; 45380; 43239; J2704; J2001

== ENCOUNTER → 2022-12-20 | Outpatient (CLI) | payer MEDICARE, BC ==
--- NOTE | 2022-12-20 10:23 | CTL ---
EXAMINATION TYPE: CT Low Dose Lung DATE OF EXAM: 12/20/2022 9:42 AM CLINICAL INDICATION:Male, 67 years old with history of Z12.2 Z87.891 F17.210; Personal history of tob acco use and asbestos exposure. , history of tobacco use. COMPARISON: 03/16/2022 TECHNIQUE: Multiple axial non-contrast scans were obtained from approximately the lung apices through the upper abdomen. Coronal and sagittal reformatted images were obtained. Low dose technique was uti lized. CT DLP: 108.6 mGycm, Automated exposure control for dose reduction was used. CT Contrast: Contrast used: None Oral contrast used: None FINDINGS: ======== Lack of intravenous contrast and low dose technique limits the evaluation of the vascular and soft ti ssue structures. LUNGS: No evidence of pulmonary fibrosis. No evidence of focal consolidation, pneumothorax or pleural effusion. Centrilobular emphysema changes are present. Nodules: RUL: New 5 mm series 4 image 53. RML: None. RLL: Intrafissural lymph node image 173, stable HARRY: Peripheral consolidation/pulmonary nodule measuring 11 mm similar when comparing on sagittal view series 4 image 149 or series 9 image 27 LLL: right 5 mm image 164, stable AIRWAY: Patent and unremarkable. HEART: Size within normal limits. Atrial septal defect occlusion device is present. MEDIASTINUM: No gross evidence of adenopathy. VASCULATURE: No aortic aneurysm. The pulmonary trunk is dilated up to 32 mm. MUSCULOSKELETAL: No acute osseous abnormalities SOFT TISSUES/LYMPH NODES: Unremarkable. LOWER NECK: No significant findings. UPPER ABDOMEN: Postsurgical changes to gastroesophageal junction. IMPRESSION: 1. New right upper lung 5 mm pulmonary nodule. The remainder of the pulmonary nodules are stable. 2. Pulmonary hypertension. 3. Mild emphysema. 4. CT LUNG RAD AND CT CHEST RECOMMENDATION: Lung-Rad 3 Probably Benign: 6 month follow-up LDCT. For the new 5 mm pulmonary nodule in the right upper lobe. S Modifier (other clinically significant findings): None Recommend smoking cessation (if current smoker), or continuation of smoking cessation (if prior smoke r). Annual screening for lung cancer with low-dose computed tomography is recommended in adults ages 55 to 77 years who have a 30 pack-year smoking history and currently smoke or have quit within the pa st 15 years. Screening should be discontinued once a person has not smoked for 15 years or develops a health problem that substantially limits life expectancy or the ability or willingness to have curat maycol lung surgery. Lung rads 2021 [email or web address]
== END | disposition home or self-care (01) ==
LOC: RADCTMAIN 09:16
PROVIDERS: ATTEND Family Medicine
DX: Z12.2 Encounter for screening for malignant neoplasm of respiratory organs (principal); J43.2 Centrilobular emphysema; R91.8 Other nonspecific abnormal finding of lung field; I27.20 Pulmonary hypertension, unspecified; F17.210 Nicotine dependence, cigarettes, uncomplicated
CPT/HCPCS: 71271

== ENCOUNTER → 2023-02-20 | Outpatient (CLI) | payer MEDICARE, BC | END | disposition home or self-care (01) | LOC: LABWHC1 14:50 | PROVIDERS: ATTEND Surgery | DX: C61 Malignant neoplasm of prostate (principal) | CPT/HCPCS: 36415; 84153 ==

== ENCOUNTER → 2023-04-28 | Outpatient (CLI) | payer MEDICARE, BC ==
--- NOTE | 2023-04-28 10:10 | US ---
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 FINDINGS: EXAM MEASUREMENTS: Liver Length: 15.6 cm Gallbladder Wall: 0.2 cm CBD: 0.5 cm Spleen: 8.6 cm Right Kidney: 9.7x4.9x5.2 cm Left Kidney: 10.1x6.0x4.0 cm Pancreas: Obscured by bowel gas Liver: enlarged, limited visualization due to bowel gas coarsened echotexture with relatively kody h contour. No suspicious observations. Gallbladder: distended to 7.6cm Evidence for sonographic Chew's sign: No CBD: wnl Spleen: wnl, as visualized Right Kidney: No hydronephrosis or masses seen Left Kidney: No hydronephrosis or masses seen Upper IVC: wnl Abd Aorta: wnl as visualized, proximal aorta is obscured by bowel gas exam is limited by bowel gas and body habitus . The intrahepatic portion of the IVC and proximal abdominal aorta are within normal limits. There is no evidence of cholelithiasis. Common bile duct is unremarkable. The spleen is unremarkable. Kid neys are symmetric and free of hydronephrosis. No renal lesions are seen. IMPRESSION: Coarsened liver echotexture compatible with hepatocellular disease. No evidence for ascites. No suspi cious liver observations.
== END | disposition home or self-care (01) ==
LOC: RADUSWWP 08:09
PROVIDERS: ATTEND Family Medicine
DX: K70.30 Alcoholic cirrhosis of liver without ascites (principal)
CPT/HCPCS: 76700

== ENCOUNTER → 2023-06-28 | Outpatient (CLI) | payer MEDICARE, BC ==
--- NOTE | 2023-06-28 11:46 | CTL ---
EXAMINATION TYPE: CT Low Dose Lung DATE OF EXAM ORDERED: 06/28/2023 HISTORY: Lung cancer screening CT DLP: 121.[address] CTDI: 3.1 mGy Automated exposure control for dose reduction was used. SCREENING VISIT: Follow-up. COMPARISON: Multiple previous with the most recent from 2022. TECHNIQUE: Low dose computed tomography scan was performed through the chest at 1 mm thick sections a nd reconstructed images in multiple planes at 1 mm and [address] DIAGNOSTIC QUALITY: Satisfactory FINDINGS: CHEST: Lungs: 6 mm nodule in the right lower lobe on series 6 image 45 is unchanged. There is been a prior left upper lobectomy. 5 mm nodule in the left lower lobe on series 6 image 33 is unchanged. There are no new or enlarging nodules. There are a few linear bands of opacities within the right middle lobe which are likely atelectasis or scarring. There is no focal area of consolidative change. Mild emphys ashish. Pleura: Normal. Mediastinum [place]: Normal. Cardiovascular: There is mild vascular calcification within the thoracic aorta without evidence of an eurysmal dilation. Mild patchy coronary artery calcifications are seen. There appears to have been a prior atrial septal closure device. Chest Wall: Normal. Upper Abdomen: Normal. MUSCULOSKELETAL: Several posterior left rib deformities are compatible with prior surgery. IMPRESSION: 1. Small unchanged pulmonary nodules. 2. Mild smoking-related change. 3. No acute findings. CT LUNG RAD AND CT CHEST RECOMMENDATION: Lung-Rad 2 Benign Appearance or Behavior: Continue annual sc reening with LDCT in 12 months.
== END | disposition home or self-care (01) ==
LOC: RADCTMAIN 10:59
PROVIDERS: ATTEND Family Medicine
DX: Z12.2 Encounter for screening for malignant neoplasm of respiratory organs (principal); F17.210 Nicotine dependence, cigarettes, uncomplicated; R91.8 Other nonspecific abnormal finding of lung field
CPT/HCPCS: 71271

== ENCOUNTER → 2023-09-14 | Outpatient (CLI) | payer MEDICARE, BC | END | disposition home or self-care (01) | LOC: LABWHC1 11:18 | PROVIDERS: ATTEND Surgery | DX: C61 Malignant neoplasm of prostate (principal) | CPT/HCPCS: 36415; 84153 ==

== ENCOUNTER → 2023-12-20 | Outpatient (CLI) | payer MEDICARE, BC ==
--- NOTE | 2024-01-11 15:49 | CT ---
Patient: Curry Jimenez G Ordering Physician: Unknown, Unknown ID: [id number] Phone, Pager: Phon e: N/A Pager: N/A : 1955 Age/Gender: 68Y, M Primary Location: N/A Procedure: CT abdomen pelv is wo con Study Date: 12/20/2023 10:05:00 AM EXAMINATION TYPE: CT abdomen pelvis w con DATE OF EXAM: 01/05/2024 COMPARISON: 11/20/[address] INDICATION: Diarrhea right-sided flank pain and history of hernia DLP: 505.8 mGycm, Automated exposure control for dose reduction was used. CONTRAST: 0 mL of Isovue 300. Study performed without Oral Contrast TECHNIQUE: Axial images were obtained from above the diaphragm to the pubic rami in the axial plane a t 5 mm thick sections. Reconstructed images are reviewed on the computer in the coronal plane. FINDINGS: Limited CT sections are obtained the lung bases. The lung bases are clear. CT ABDOMEN: Liver: Normal Spleen: Normal Pancreas: Normal Adrenal glands: The adrenal glands are normal. Gallbladder: Normal Kidneys: No masses are evident. No hydronephrosis is present. No cysts are present. No renal stone s are evident. Aorta: Vascular calcification is within the aorta. There is some widening of the distal abdominal ao rta measuring 3.1 cm. AP dimension appears to taper normally measuring 2.3 cm at the level of the tra nsverse widening. Aortic bifurcation is unremarkable. Inferior vena cava: Normal. CT PELVIS: Loops of bowel within the abdomen and pelvis are normal. The study is lateral contrast limiting b owel evaluation Appendix: Not identified. Urinary bladder: Normal. Genitourinary structures: Prostate appears unremarkable Osseous structures: No suspicious lytic or sclerotic lesions. Post Surgical changes are within the nathaniel mbar spine IMPRESSION: 1. No suspicious acute abdomen abnormality. 2. No suspicious bowel abnormality on the ninth oral contrast study.
== END | disposition home or self-care (01) ==
LOC: RADCTMAIN 09:59
PROVIDERS: ATTEND Family Medicine
DX: R14.0 Abdominal distension (gaseous) (principal); R10.84 Generalized abdominal pain
CPT/HCPCS: 74176

== ENCOUNTER → 2024-03-07 | Outpatient (CLI) | payer MEDICARE, BC | END | disposition home or self-care (01) | LOC: LABWHC1 11:47 | PROVIDERS: ATTEND Surgery | DX: C61 Malignant neoplasm of prostate (principal) | CPT/HCPCS: 36415; 84153 ==

== ENCOUNTER → 2024-05-21 | Outpatient (CLI) | payer MEDICARE, BC ==
--- NOTE | 2024-05-21 10:41 | US ---
EXAMINATION TYPE: US abdomen limited DATE OF EXAM: 05/21/2024 COMPARISON: CT abdomen and pelvis December 20, 2023 CLINICAL INDICATION: Male, 69 years old with history of R10.11 RIGHT UPPR QUAD PAIN; Constipation wit h RLQ pain x 1 month TECHNIQUE: Grayscale and color Doppler imaging of the right upper quadrant was performed. FINDINGS: EXAM MEASUREMENTS: Liver Length: 15.0 cm Gallbladder Wall: 0.2 cm CBD: 0.3 cm Right Kidney: 9.8 x 5.5 x 5.3 cm [employer] NOTES: Pancreas: Portions obscured by overlying bowel gas Liver: Increased attenuation, decreased visualization of vessels suggestive of fatty infiltrate Gallbladder: Limited visualization; WNL as visualized Evidence for sonographic Chew's sign: No CBD: wnl Right Kidney: wnl IMPRESSION: Suboptimal study without suspicious new or acute findings seen. [facility], , 05/21/2024 10:39 AM
[2024-05-21 15:48] LABS: Basophils # (A) 0.07 X 10*3/uL (0.00-0.10); Basophils % (A) 0.9 %; Eosinophils # (A) 0.13 X 10*3/uL (0.04-0.35); Eosinophils % (A) 1.8 %; HCT 43.6 % (39.6-50.0); HGB 13.9 g/dL (13.0-17.0); MCH 30.8 pg (27.0-32.0); MCHC 31.9 g/dL (32.0-37.0); MCV 96.5 FL (80.0-97.0); Mean Platelet Volume 10.4 FL (9.5-12.2); Monocytes % (A) 12.2 %; NRBC Per 100 WBC 0 X 10*3/uL (0.00-0.01); Neutrophils # (A) 4.84 X 10*3/uL (1.80-7.70); Neutrophils % (A) 65.6 %; Platelet Count 261 X 10*3/uL (140-440); RBC 4.52 X 10*6/uL (4.40-5.60); WBC 7.38 X 10*3/uL (4.50-10.00)
[2024-05-21 15:59] LABS: ALT 14 U/L (10-49); AST 17 U/L (14-35); Albumin 3.7 g/dL (3.8-4.9); Albumin/Globulin Ratio 1.23 Ratio (1.60-3.17); Alkaline Phosphatase 102 U/L (41-126); BUN/Creat Ratio 14.08 Ratio (12.00-20.00); Blood Urea Nitrogen 16.9 mg/dL (9.0-27.0); Carbon Dioxide 26.9 mmol/L (21.6-31.8); Chloride 105 mmol/L (96-109); Glucose 102 mg/dL (70-110); Potassium 5.2 mmol/L (3.5-5.5); Sodium 141 mmol/L (135-145); Total Bilirubin 0.3 mg/dL (0.3-1.2); Total Protein 6.7 g/dL (6.2-8.2)
== END | disposition home or self-care (01) ==
LOC: RADUSWWP 08:59
PROVIDERS: ATTEND Internal Medicine Gastroenterology
DX: K59.00 Constipation, unspecified (principal)
CPT/HCPCS: 76705; 80053; 85025

== ENCOUNTER → 2024-07-26 | Outpatient (CLI) | payer MEDICARE, BC ==
--- NOTE | 2024-07-27 19:32 | PE ---
EXAMINATION TYPE: PET CT fusion skull to thigh DATE OF EXAM: 07/26/2024 CLINICAL INDICATION:Male, 69 years old with history of R91.8 LUNG NODULE; TECHNIQUE: Following the intravenous administration of 10.6 mCi of F-18 FDG, whole body images are performed from the skull base to the Mid thigh. Images are reviewed on the computer in the coronal, axial, and sagittal planes. Reconstructed rotating images are created on independent workstation and reviewed on the computer. A non-contrast CT is performed in conjunction with the PET scan. Glucose level 110 mg/dL CT DLP: 607.30 mGycm, Automated exposure control for dose reduction was used. COMPARISON: CT 07/01/2024, PET/CT None, MRI: None FINDINGS: Mediastinal SUV mean is 2.3. Hepatic parenchyma SUV mean is 3.3 SKULL BASE AND NECK: No suspicious radiotracer activity. CHEST, MEDIASTINUM, AND HILAR REGION: No suspicious radiotracer activity. Scattered pulmonary nodules along the left mediastinal border measuring up to 9 mm Max SUV 2.0 ABDOMEN AND PELVIS: * No suspicious radiotracer activity. * Intense radiotracer uptake within the seminal vesicles bilaterally max SUV on the left 20.0 and on the right 26.0. MUSCULOSKELETAL STRUCTURES: * No suspicious radiotracer activity * Suspected contamination along the left shoulder anteriorly max SUV 9.[address]: Bilateral fat-containing inguinal hernias. Few scattered colonic diverticula. Post surgical changes spine hardware present. Arthrosis course of the coronary arteries. Heart is mildly enlarged for size. Atrial septal defect closure device is present. Postsurgical changes gastroesophageal junct ion. Prostatectomy changes IMPRESSION: 1. Left pulmonary nodules the largest of which has FDG activity at background levels. Continued year ly low-dose lung cancer screening recommended at this time. 2. Cancer Registry uptake within seminal vesicles likely urine contamination given prostatectomy philipp rushing. [facility], , 07/27/2024 7:30 PM
== END | disposition home or self-care (01) ==
LOC: RADPETMAIN 07:19
PROVIDERS: ATTEND Family Medicine
DX: R91.8 Other nonspecific abnormal finding of lung field (principal); K57.30 Diverticulosis of large intestine without perforation or abscess without bleeding; K40.20 Bilateral inguinal hernia, without obstruction or gangrene, not specified as recurrent
CPT/HCPCS: 78815; A9552